=== PATIENT | male | born 1945 | race Caucasian/White ===

== ENCOUNTER 2017-09-04 11:45 | Outpatient (RCR) | payer MEDICARE, BC, SELFPAY ==
[2017-09-04 12:33] LABS: International Normalized Ratio 2.6; Prothrombin Time (Protime)PT. 27.1 SECONDS (11.7-14.9)
== END 2017-09-04 12:30 | disposition home or self-care (01) ==
LOC: LAB 11:45
PROVIDERS: Family Provider Family Medicine; PCP Family Medicine; Visit Provider Internal Medicine Cardiovascular Disease
DX: Z79.01 Long term (current) use of anticoagulants (principal)
CPT/HCPCS: 85610

== ENCOUNTER 2017-10-25 09:48 | Inpatient (IN) | payer MEDICARE, BC, SELFPAY ==
--- NOTE | 2017-10-22 07:54 | EKG12_ITS ---
Test Reason : PREOP Blood Pressure : / mmHG Vent. Rate : 068 BPM Atrial Rate : 394 BPM P-R Int : 000 ms QRS Dur : 090 ms QT Int : 432 ms P-R-T Axes : 000 067 028 degrees QTc Int : 459 ms Atrial fibrillation Abnormal ECG Confirmed by EDDA WHITT MD ([id number]), editor managing newspaper VITO VALDES ([id number]) on 10/24/2017 2:35:17 PM Referred By: Von Gold Confirmed By:EDDA WHITT MD
[2017-10-22 08:36] LABS: Hematocrit 30.6 % (40-54); Hemoglobin 8.2 g/dl (13.0-16.5); Mean Corp Hgb Conc 26.8 g/gl (32-36); Mean Corpuscular Volume 59.6 fL (80-94); Mean Platelet Vol. 9.3 fl (6.2-12.0); Platelet Count 456 K/mm3 (150-450); RBC Distribution Width CV 24.3 % (11.6-14.6); RBC Distribution Width SD 50.9 fl (35.1-43.9); Red Blood Count 5.13 M/mm3 (4.6-6.2); White Blood Count 8.7 K/mm3 (4.4-11.0)
[2017-10-22 08:37] LABS: Scan Indicated on CBC? Y/N YES- FLAGS NOTED
[2017-10-22 08:54] LABS: Anion Gap 7 (5-15); BUN 13 mg/dL (7-18); BUN/Creat Ratio 15.2 RATIO (10-20); Calcium,Total 8.4 mg/dL (8.5-10.1); Chloride 106 mmol/L (98-107); Creatinine, Serum 0.86 mg/dL (0.70-1.30); EST Glomerular Filtration Rate 93 mL/min (>60); Est Glom Filt Rate - Afr Amer 113 mL/min (>60); Glucose 102 mg/dL (74-106); Potassium 3.7 mmol/L (3.5-5.1); Sodium Level 140 mmol/L (136-145)
[2017-10-22 09:20] LABS: Differential Comment SCANNED
[2017-10-25] VITALS (16 sets, daily range): BP systolic 102–122; BP diastolic 66–83; PULSE 58–103; RESP 16–18; TEMP 36.4–37.7; O2SAT 95–100; BMI 66.1
[2017-10-25 11:06] LABS: Hematocrit 28.9 % (40-54); Hemoglobin 7.5 g/dl (13.0-16.5); Mean Corpuscular Hgb 15.7 pg (27.0-32.0); Mean Corpuscular Volume 60.3 fL (80-94); Mean Platelet Vol. 8.6 fl (6.2-12.0); Platelet Count 335 K/mm3 (150-450); RBC Distribution Width CV 22.6 % (11.6-14.6); RBC Distribution Width SD 50.1 fl (35.1-43.9); Red Blood Count 4.79 M/mm3 (4.6-6.2); Scan Indicated on CBC? Y/N YES- FLAGS NOTED; White Blood Count 5.3 K/mm3 (4.4-11.0)
[2017-10-25 11:07] LABS: ALB/GLOB Ratio 0.8 RATIO (0.9-2.4); AST(SGOT) 9 U/L (15-37); Alanine Aminotransfer ALT/SGPT 9 U/L (16-61); Albumin, Serum 3.2 g/dL (3.2-5.0); Alkaline Phosphatase 51 U/L (45-117); Anion Gap 7 (5-15); BUN 10 mg/dL (7-18); BUN/Creat Ratio 12.7 RATIO (10-20); Calcium,Total 8.2 mg/dL (8.5-10.1); Chloride 102 mmol/L (98-107); Creatinine, Serum 0.79 mg/dL (0.70-1.30); EST Glomerular Filtration Rate 103 mL/min (>60); Est Glom Filt Rate - Afr Amer 125 mL/min (>60); Estimated Creatinine Clearance 72.16 ml/min; Globulin 3.9 g/dL (2.2-4.2); Glucose 96 mg/dL (74-106); Phosphorus 2.9 mg/dL (2.5-4.9); Potassium 3.4 mmol/L (3.5-5.1); Protein, Total 7.1 g/dL (6.4-8.2); Sodium Level 138 mmol/L (136-145)
--- NOTE | 2017-10-25 11:13 | RAD_ITS ---
STUDY: X-RAY - ABDOMEN/PELVIS REASON FOR EXAM: Male, 72 years old. Abdominal pain. Colonoscopy earlier in the day. TECHNIQUE: AP supine and upright views of the abdomen and pelvis. COMPARISON: None. FINDINGS: Hiatal hernia. There is an unremarkable bowel gas pattern. There is no demonstrated free abdominal air. The visualized liver, spleen and kidneys are grossly normal in size and morphology. Normal soft tissue structures. Normal visualized osseous structures. RAD/Abd Decub and/or Erect(Portabl IMPRESSION: No acute abnormality is seen. Hiatal hernia. Electronically Signed: Jerad Patterson MD at 14:33 EST Tel [phone], Service support ,
[2017-10-25 11:40] LABS: Differential Comment SCANNED
[2017-10-25] MEDS: 0.9% Normal Saline 1,000 ML 40 ML IV (11:43)
[2017-10-25] MEDS: metroNIDAZOLE 500 MG Tablet 1000 MG PO ×3 (13:11→21:05)
--- NOTE | 2017-10-25 16:56 | HP.PCM_ITS ---
History and Physical Date of Admission: 10/25/17 Yves Carbone 1945 REFERRING PHYSICIAN: Orlin Reed MD CHIEF COMPLAINT: Newly diagnosed hepatic flexure colon cancer HPI: The patient is a pleasant 72 year old WM who presents with newly diagnosed colon cancer at hepatic flexure. Patient presents with right sided abdominal pain, also. This is what prompted abdominal/pelvic CT scan which revealed thickening of colon at hepatic flexure. Patient underwent colonoscopy by Dr. Reed with findings of invasive colon cancer, lesion noted at hepatic flexure. Patient is referred for consideration of surgical treatment. Patient complains of right upper quadrant abdominal pain that radiates posterior to the right flank. Described as intermittent, severe ache, with sometimes sharp pains. He was noted to have perinephric stranding of the surrounding soft tissues from the CT scan of unknown significance. Has history of kidney stones, but no stones seen. Denies nausea/emesis. Denies weight loss. No family history of colon cancer The patient was initially seen by my partner-Jannet Aguayo as I was out of town and it was felt that surgical intervention was somewhat urgent. The patient was scheduled for laparoscopic right hemicolectomy. Dr. Aguayo performed repeat endoscopy this morning, marking, and clipping the site of abnormality to assist in my surgical intervention tomorrow. I had spoken with Dr. Romero-the patient's chair pad maker and felt was appropriate for surgical intervention. Preoperative laboratory testing demonstrated. The patient at hemoglobin of 8.2. I spoke with Dr. Shimon Church-anesthesia, who wanted the patient to be transfused 2 units of blood prior to surgical intervention. PAST MEDICAL HISTORY Diagnosis Date ? Acid reflux ? Atrial fibrillation (HCC) ? History of kidney stones ? Hypercholesteremia ? Hypertension PAST SURGICAL HISTORY Procedure Laterality Date ? COLONOSCOPY 10/05/2017 ? TOTAL KNEE REPLACEMENT Left 2012 Current Outpatient Prescriptions: metoprolol tartrate, short acting, (LOPRESSOR) 100 mg tablet Take 100 mg by mouth twice daily. VIT A/VIT C/VIT E/ZINC/COPPER (OCUVITE PRESERVISION ORAL) Take by mouth once daily. omeprazole (PRILOSEC) 20 mg capsule Take 20 mg by mouth as needed (GERD). Psyllium Seed-Sucrose (METAMUCIL, SUGAR,) powd Take by mouth once daily. warfarin (COUMADIN) 4 mg tablet NIFEdipine ER (PROCARDIA XL) 60 mg 24 hr tablet simvastatin (ZOCOR) 20 mg tablet Quinapril HCl 40 mg tablet oxyCODONE-acetaminophen (PERCOCET) 5-325 mg tablet lactulose (GENERLAC) 10 gram/15 mL solution Take 30 mL by mouth twice daily. traMADol (ULTRAM) 50 mg tablet Take 1 tablet by mouth every 4 hours as needed for up to 5 days. neomycin 500 mg tablet Take 2 tablets by mouth four times daily. metroNIDAZOLE (FLAGYL) 500 mg tablet Take 1 tablet by mouth three times daily for 14 days. FOR 14 DAYS. ALLERGIES: Review of patient's allergies indicates no known allergies. PERSONAL HISTORY: Social History Marital status: Spouse name: Years of education: Number of children: Social History Main Topics Smoking status: Former Smoker Packs/day: 0.00 Years: 0.00 Smokeless status: Never Used Comment: quit 11 years ago Alcohol use: Yes Comment: occasional FAMILY HISTORY Problem Relation Age of Onset ? bone cancer [OTHER] Mother ? Stroke Father REVIEW OF SYSTEMS: General: overall feels well, complains of fatigue, denies weight loss, denies weight gain, denies feeling hot, and denies feelings of cold. Eyes: The patient denies glaucoma, denies eye injury/surgery, wears glasses or contacts. Ear/Nose/Throat: The patient denies allergies, denies hayfever, denies ear infections, and denies bloody noses. Cardiovascular: The patient denies chest pain, denies heart disease, NOTES high blood pressure,denies cardiac stent, denies prior heart attack, NOTES irregular heart beat chair pad maker is Dr. Romero, NOTES high cholesterol, denies poor circulation, denies heart failure, other cardiac issues, denies claudication, denies cold feet, denies peripheral arterial stent. Respiratory: The patient denies tuberculosis, denies pneumonia, denies frequent cough, denies pulmonary embolism, NOTES shortness of breath, and denies coughing up blood. Gastrointestinal: The patient denies difficulty swallowing, NOTES acid reflux, denies ulcers, denies vomiting, denies jaundice/hepatitis, denies gallbladder problems, denies black or tarry stools, denies hemorrhoids, denies bleeding from rectum, denies diverticulitis, denies constipation, denies diarrhea, denies loss of stool control, and denies hernias. Kidney/Bladder: The patient NOTES kidney stones, denies urine infections, and denies bloody urine. Skin: The patient denies a history of skin cancer, denies bleeding/ changing moles, and denies a history of skin rash. Neurologic: The patient denies a history of epilepsy/convulsions, denies headaches, denies head/spinal injuries, and denies stroke/TIA. Psychiatric: The patient denies psychiatric medications, denies depression , and denies voices, denies substance abuse. Endocrine: The patient denies thyroid disorders, denies diabetes, and denies hormonal problems. Hematologic: The patient denies a history of bruising, denies bleeding, and denies anemia, denies blood clots. Infections: The patient denies a history of measles and mumps, denies rheumatic fever, and denies sexually transmitted diseases. Musculoskeletal: The patient denies back pain/injury, denies back problems , denies sciatica, NOTES knee/foot trouble, denies arthritis, or denies gout. PHYSICAL EXAMINATION: General: The patient is 72 year old male, well nourished, well hydrated in no acute distress. The patient is oriented to time, place, and person. VITALS: Blood pressure 118/80, pulse 72, height 180.3 cm (5' 11), weight 100.7 kg (222 lb). Body mass index is 30.96 kg/(m^2). Head ? Normocephalic. EOM intact with sclera clear and no icterus noted. Mouth with mucus membranes moist. Neck - supple with no jugular venous distention noted. Trachea is midline. No carotid bruits noted. No thyroid enlargement or thyroid nodules detected. No masses noted. Lungs ? clear to auscultation. Normal breath sounds in all lung jackson. No rales /rhonchi/wheezing noted. No labored breathing noted, such as retractions. Heart ? normal S1 and S2 auscultated. No rubs/clicks/murmurs noted. Irregular rhythm Abdomen ? soft and benign and slightly protuberant. Normal bowel sounds. No abdominal bruits noted. Difficult to determine if any masses or organomegaly due to body habitus. Extremities ? no calf tenderness noted. No pitting edema noted. . Skin ? normal skin integrity. Lymph ? no cervical adenopathy detected, no supraclavicular adenopathy detected , no axillary adenopathy detected Neurological ? gait normal, no focal deficits noted Psych ? calm and appropriate IMPRESSION: hepatic flexure colon cancer PLAN: I have discussed the above with the patient and his and daughter who are present with him this morning following endoscopy, the plan for laparoscopic right hemicolectomy. The planned surgical procedure was discussed extensively with the patient. The risks, benefits and anticipated outcomes of the procedure, the risks and benefits of the alternatives to the procedure, and the roles and tasks of the personnel to be involved, were discussed with the patient. My staff has also explained the procedure in understandable terms and the patient was given the option to take printed material concerning the planned procedure. The patient had the opportunity to ask questions concerning the planned procedure. The patient freely consents to the planned procedure. He'll be admitted today for transfusion of 2 units packed red cells. Last coumadin/warfarin dose will be on Oct 21, 2017 . Diagnoses: (C18.3) Malignant neoplasm of hepatic flexure (HCC) (primary encounter diagnosis) (R10.11) Right upper quadrant abdominal pain Best contact cell phone number [phone] Von Gold MD
[2017-10-25] MEDS: Atorvastatin Calcium 10 MG Tablet PO (21:06)
[2017-10-25] MEDS: Metoprolol Tartrate 100 MG Tablet PO (21:08)
[2017-10-26] VITALS (12 sets, daily range): BP systolic 117–144; BP diastolic 77–91; PULSE 61–87; RESP 16–18; TEMP 36.1–37; O2SAT 93–99; BMI 66.1
--- NOTE | 2017-10-26 | IMM_PTH ---
PATIENT: KRISH NAIR LOC: MS3 U#:[id number] AGE/SX: 72/M ROOM: TX312 RE10/25/[address]: Dr. Von Gold MD : 1945 BED: 1 DIS: 10/30/2017 SPEC #: [id number] RECD: 11/01/17 09:53 STATUS: GLYNN REQ #: [id number] MARITZA: 10/26/17 00:[address]: Von Gold DEPT: IMMUNOHISTOCHEMISTRY RECD BY: Munira Lou ENTERED: 11/01/17 09:56 SP TYPE: IMMUNO OTHR DR: Dr. Madeleine Subramanian MD Tissues: Right colon Procedures: MLH-1 (add) MSH6 (add) Anti-PMS2 (add) REYES-2 (add) HER2 ZENOBIA (add) KI-67 (add) P53 (add) MSH2 (initial) CDX2 (add) PHYSICIAN & INSTITUTION [place] [id number] SPECIMEN INFORMATION: Tissue Source: Right colon, extended hemicolectomy Clinical Info: Hepatic flexure colon cancer Specimen Number: [id number] #6 CPT code: 41059, 71243 x8 METHODOLOGY: Deparaffinized sections of prefer/formalin-fixed tissue or PAP/DQ stained slides are incubated with monoclonal/polyclonal antibodies/oligonucleotide probes. Localization is made via biotin free immunoperoxidase method. Appropriate controls are performed and reacted as expected. Results on target cell population are indicated in the following table: RESULTS: ANTIBODY / CLONE RESULT Block #6 COLON CANCER PROFILE (Prognostic Markers) Ki-67 (30-9) positive, moderate P53 (DO-7) positive, >90% MSH2 (25D12) positive MSH6 (44) positive MLH-1 (M1) positive PMS2 (CPM9929) positive REYES-2 (SP21) positive Her-2neu (CB11) negative CDX2 ([id number]) positive These tests were developed and their performance characteristics determined by [facility]. They may not have been cleared or approved by the U.S. Food and Drug Administration. The FDA has determined that such clearance or approval is not necessary. INTERPRETATION: Right colon, extended hemicolectomy: Invasive adenocarcinoma. Result of Microsatellite Instability Study: Negative (no loss of mismatch protein; no microsatellite instability detected). AM:jeannette 11/02/17
[2017-10-26 05:49] LABS: International Normalized Ratio 1.2; Prothrombin Time (Protime)PT. 14.7 SECONDS (11.7-14.9)
[2017-10-26 05:50] LABS: Partial Thromboplast Time 34.9 Seconds (24.1-36.2)
[2017-10-26 06:08] LABS: ALB/GLOB Ratio 0.8 RATIO (0.9-2.4); AST(SGOT) 11 U/L (15-37); Alanine Aminotransfer ALT/SGPT 11 U/L (16-61); Albumin, Serum 3.1 g/dL (3.2-5.0); Alkaline Phosphatase 51 U/L (45-117); Anion Gap 8 (5-15); BUN 10 mg/dL (7-18); BUN/Creat Ratio 13.4 RATIO (10-20); Calcium,Total 8.4 mg/dL (8.5-10.1); Chloride 106 mmol/L (98-107); Creatinine, Serum 0.75 mg/dL (0.70-1.30); EST Glomerular Filtration Rate 110 mL/min (>60); Est Glom Filt Rate - Afr Amer 133 mL/min (>60); Estimated Creatinine Clearance 72.16 ml/min; Globulin 3.8 g/dL (2.2-4.2); Glucose 94 mg/dL (74-106); Magnesium 1.9 mg/dL (1.6-2.6); Phosphorus 2.7 mg/dL (2.5-4.9); Potassium 3.1 mmol/L (3.5-5.1); Protein, Total 6.9 g/dL (6.4-8.2); Sodium Level 139 mmol/L (136-145)
[2017-10-26 06:27] LABS: Hemoglobin 9.6 g/dl (13.0-16.5); Mean Corp Hgb Conc 29.1 g/gl (32-36); Mean Corpuscular Hgb 18.3 pg (27.0-32.0); Mean Platelet Vol. 9.4 fl (6.2-12.0); Platelet Count 355 K/mm3 (150-450); RBC Distribution Width CV 27.9 % (11.6-14.6); Red Blood Count 5.24 M/mm3 (4.6-6.2); White Blood Count 6.4 K/mm3 (4.4-11.0)
[2017-10-26 06:32] LABS: Scan Indicated on CBC? Y/N YES- FLAGS NOTED
[2017-10-26 06:54] LABS: Differential Comment SCAN
[2017-10-26] MEDS: Metoprolol Tartrate 100 MG Tablet PO ×2 (10:30→21:46)
[2017-10-26] MEDS: Lisinopril 40 MG Tablet PO (10:31)
[2017-10-26] MEDS: Pantoprazole Sodium 20 MG Tablet PO (10:31)
[2017-10-26] MEDS: NIFEdipine 60 MG Tablet PO (10:32)
--- NOTE | 2017-10-26 13:00 | COL._PTH ---
PATIENT: KRISH NAIR LOC: MS3 U#:[id number] AGE/SX: 72/M ROOM: MN312 RE10/25/[address]: Dr. Von Gold MD : 1945 BED: 1 DIS: 10/30/2017 SPEC #: [id number] RECD: 10/29/17 08:29 STATUS: GLYNN LUONG #: [id number] MARITZA: 10/26/17 13:[address]: Von Gold DEPT: SURGICAL PATHOLOGY RECD BY: Von Delacruz ENTERED: 10/29/17 09:25 SP TYPE: COLON OTHR DR: Dr. aMdeleine Subramanian MD Tissues: Colon, NOS Procedures: Surgery Specimen Level HEADER OPERATION: Laparoscopic extended hemicolectomy PRE-OP DIAGNOSIS: Hepatic flexure colon cancer TISSUE SUBMITTED: Extended right colon MICROSCOPIC DIAGNOSIS Right colon, extended hemicolectomy: Invasive adenocarcinoma. See cancer checklist below. AM:jeannette 10/31/17 COMMENT COLON CANCER SUMMARY: Specimen ? right colon Procedure ? right hemicolectomy Tumor site ? right colon Tumor size ? 4 x 3.5 x 1 cm Macroscopic tumor perforation ? not identified Histologic type - adenocarcinoma Histologic grade ? low-grade (moderately differentiated) Microscopic tumor extension ? tumor invades through muscularis propria into subserosal fat. Margins: Proximal margin ? uninvolved by invasive carcinoma Distal margin - uninvolved by invasive carcinoma Circumferential - uninvolved by invasive carcinoma Distance from closest mucosal margin (distal margin) ? 6 cm Lymph-Vascular invasion ? not identified Perineural invasion - not identified Tumor deposits - not identified Treatment effect - unknown Lymph nodes: Number of lymph nodes examined - 13 Number of lymph nodes involved - 0 Additional pathologic findings ? appendix with early acute appendicitis. Small bowel with benign lymphoid hyperplasia. Ancillary studies: See microsatellite instability study by IHC ([id number]) for complete details. Negative (no loss of mismatch protein; no microsatellite instability detected). Microsatellite instability - Immunohistochemistry Studies for Mismatch Repair Proteins: MLH1 - Intact nuclear positivity, tumor cells MSH2 - Intact nuclear positivity, tumor cells MSH6 - Intact nuclear positivity, tumor cells PMS2 - Intact nuclear positivity, tumor cells Mutational Analysis - BRAF ? not performed KRAS - not performed PATHOLOGIC STAGE: pT3 N0 Mx Case has been reviewed in consultation with Dr. Burrows who concurs with the above diagnosis. IDC:SJ The above summary is in compliance with [employer] [place] [employer] (CAP) Cancer Protocols Checklist and [place] [employer] Committee on Cancer (AJCC), Staging Manual, 8th Ed. MICROSCOPIC DESCRIPTION Slides are reviewed. GROSS DESCRIPTION Received in fixative is one container labeled with the patient's name and designated right colon, extended. The specimen consists of a right hemicolectomy specimen consisting of cecum with ascending colon, portion of transverse colon, small intestine and appendix with attached pericolonic adipose tissue and omentum. The cecum with ascending colon measures 23 cm in length, segment of small intestine measures 3 cm in length and the appendix measures 9 cm in length and 0.4 cm in diameter. The attached omentum measures 16 x 9 x 1.5 cm. Both resection margins are stapled. Also present in the container are two separate pieces of colonic tissue consistent with donut tissue measuring 1 x 1 x 0.5 cm and 4 x 2 x 1 cm. Sections of the appendix reveal pin-point lumen. 6 cm away from the distal resection margin there is an ulcerated round tumor mass measuring 3.5 x 4 x 1 cm. Adjacent to the tumor mass a metallic clip is present. The tumor mass appears to involve full thickness of the bowel wall. The serosal surface adjacent to the tumor mass is inked black. No additional mass lesion is identified. Sections of omentum reveal unremarkable cut surfaces without any mass lesion. Sections of the pericolonic adipose tissue reveal multiple lymph nodes. The largest lymph node measures 0.6 cm. Artificial Marble Worker sections are submitted as follows: 1 ? donut, 2 ? appendix, 3 ? proximal and distal resection margin, 4-7 ? tumor, 8 ? ileocecal valve and adjacent portion of small and large intestine, 9 ? omentum, 10-14 ? multiple lymph nodes in each cassette. / ELENITA:jeannette 10/30/17 TC:0 CPT: 76348
--- NOTE | 2017-10-26 13:00 | CASEMGMT ---
RN CM attempted to do Face 2 Face, patient not in room and is at surgery. RN CM will follow-up when patient back on unit.
[2017-10-26] MEDS: Bupivacaine 0.25% 30 ML Vial (17:52)
--- NOTE | 2017-10-26 17:58 | PCM.OPRPT ---
Report of Operation Date of Procedure: 10/26/17 Pre-Operative Diagnosis: proximal transverse colon cancer Post-Operative Diagnosis: proximal transverse colon cancer Surgery/Procedure Performed:: laparoscopic extended right hemicolectomy Description of Surgical Findings:: as above bushing and broach operator: Zulema Goddard Type of Anesthesia:: General Anesthesiologist: Shimon Church - ASA3 Specimen's removed: exrtended right colon Estimated Blood Loss (mL): 150 Fluids Replaced: 1999 Description of Procedure: The patient was brought to the operating suite. Sign in was performed verifying patient, site, procedure, position, and DVT prophylaxis with SCDs. Patient 2 g of cefotetan. Preoperative bowel prep of mechanical and antibiotic comprised of GoLYTELY 2 days before the procedure. The patient then underwent repeat colonoscopy by Dr. Aguayo to ink and clip the tumor location. a KUB was obtained which demonstrated the clip to be just to the right of the midline proving the abnormality to be in the junction between the proximal and mid transverse colon. The patient's preoperative laboratory studies demonstrated significant anemia with a hemoglobin of 8 area and he is admitted to the hospital. Therefore, the day before procedure for transfusion of 2 units of packed red cells, maintained on clear liquids and in the evening. Given neomycin and Flagyl 1 g 3 doses evening before was given Following induction of general anesthetic. The patients abdomen was prepped and draped in the usual fashion. Timeout was performed verifying patient, site, position. Local anesthetic was injected below the umbilicus. Incision made and dissection carried down to the umbilical root fascia. 2 stay sutures were placed. Incision made in the fascia, the peritoneum entered under direct visualization. A 10 mm [place] trocar was inserted and secured with the stay sutures. Pneumoperitoneum to 15 mmHg was insufflated. Visual inspection revealed normal appearing liver and normal. Visualized intra-abdominal structures. The Lisa ink marked tumor site was noted at the junction of the proximal and mid transverse colon as expected. 2 5mm ports were placed in the standard midline position, and a third 5 port placed in the left lateral upper quadrant to assist in transverse colon. Mobilization. Mobilization the avascular plane was undertaken from the base of the cecum up and around the hepatic flexure. Division of the lesser sac from left upper quadrant through the midline to the hepatic flexure was undertaken. When this was fully mobilized, the duodenum was visualized from the right flank region. Next, the terminal ileum area was brought up and a cleavage point noted in the mesentery. Harmonic Scalpel was used to create a window in the terminal ileal mesentery and division was taken down to the ileocolic root. Next the transverse colon was grasped and the vasculature coming from the middle colic vessel was identified. A window was made in the bare area proximal to the middle colic vessels just overlying the duodenal sweep. This was also fully divided. Dissection was then carried out at the ileal colic vessel root. The artery and vein were identified and doubly clipped proximally and doubly clipped distally with Hem-o-lee clips. With full dissection of the mesentery and full mobilization the colon, the umbilical incision was extended and a wound protector placed. The terminal ileum and cecum ascending colon part of the transverse colon were delivered through the wound protector. Complete division of the mesentery to the bowel was undertaken at both sites. The bowel was transected with an intestinal load echelon stapler. On this a functional stapled end-to-end anastomosis was performed between the ileum and transverse colon with an echelon stapler. The staple line was checked for hemostasis and following this the anastomosis closed with a TA stapler creating a wide triangle opening that was easily palpable. A 3-0 silk suture was used to take tension off the apex of the staple line. At this point, the specimen was opened on the back table. There was noted to be tumor in the expected location. Gown and gloves were changed. Pneumoperitoneum was re-established. There was good anatomic positioning of the small bowel and good hemostasis along the incisions. The 5mm ports were removed under direct visualization with no signs of bleeding. Pneumoperitoneum was released. The umbilical fascial defect was closed with a running 0 PDS suture. Subcutaneous fat reapproximated with interrupted 3-0 Vicryl sutures. Skin was closed with interrupted and running 4-0 Monocryl subcuticular sutures. Steri-Strips and bandages were applied. The patient was brought to recovery room in stable condition. - Admit VTE Documentation VTE Present on Admission: No VTE Mechan Device Prophylaxis: SCD's VTE Pharm Prophylaxis ordered?: No
--- NOTE | 2017-10-26 18:05 | OP.PCM_ITS ---
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 Sign in was performed verifying patient, site, procedure, position, and DVT prophylaxis with SCDs. Patient 2 g of cefotetan. Preoperative bowel prep of mechanical and antibiotic comprised of GoLYTELY 2 days before the procedure. The patient then underwent repeat colonoscopy by Dr. Aguayo to ink and clip the tumor location. a KUB was obtained which demonstrated the clip to be just to the right of the midline proving the abnormality to be in the junction between the proximal and mid transverse colon. The patient's preoperative laboratory studies demonstrated significant anemia with a hemoglobin of 8 area and he is admitted to the hospital. Therefore, the day before procedure for transfusion of 2 units of packed red cells, maintained on clear liquids and in the evening. Given neomycin and Flagyl 1 g 3 doses evening before was given Following induction of general anesthetic. The patient?s abdomen was prepped and draped in the usual fashion. Timeout was performed verifying patient, site , position. Local anesthetic was injected below the umbilicus. Incision made and dissection carried down to the umbilical root fascia. 2 stay sutures were placed. Incision made in the fascia, the peritoneum entered under direct visualization. A 10 mm [place] trocar was inserted and secured with the stay sutures. Pneumoperitoneum to 15 mmHg was insufflated. Visual inspection revealed normal appearing liver and normal. Visualized intra-abdominal structures. The Lisa ink marked tumor site was noted at the junction of the proximal and mid transverse colon as expected. 2 5mm ports were placed in the standard midline position, and a third 5 port placed in the left lateral upper quadrant to assist in transverse colon. Mobilization. Mobilization the avascular plane was undertaken from the base of the cecum up and around the hepatic flexure. Division of the lesser sac from left upper quadrant through the midline to the hepatic flexure was undertaken. When this was fully mobilized, the duodenum was visualized from the right flank region. Next, the terminal ileum area was brought up and a cleavage point noted in the mesentery. Harmonic Scalpel was used to create a window in the terminal ileal mesentery and division was taken down to the ileocolic root. Next the transverse colon was grasped and the vasculature coming from the middle colic vessel was identified. A window was made in the bare area proximal to the middle colic vessels just overlying the duodenal sweep. This was also fully divided. Dissection was then carried out at the ileal colic vessel root. The artery and vein were identified and doubly clipped proximally and doubly clipped distally with Hem-o-lee clips. With full dissection of the mesentery and full mobilization the colon, the umbilical incision was extended and a wound protector placed. The terminal ileum and cecum ascending colon part of the transverse colon were delivered through the wound protector. Complete division of the mesentery to the bowel was undertaken at both sites. The bowel was transected with an intestinal load echelon stapler. On this a functional stapled end-to-end anastomosis was performed between the ileum and transverse colon with an echelon stapler. The staple line was checked for hemostasis and following this the anastomosis closed with a TA stapler creating a wide triangle opening that was easily palpable. A 3-0 silk suture was used to take tension off the apex of the staple line. At this point, the specimen was opened on the back table. There was noted to be tumor in the expected location. Gown and gloves were changed. Pneumoperitoneum was re-established. There was good anatomic positioning of the small bowel and good hemostasis along the incisions. The 5mm ports were removed under direct visualization with no signs of bleeding. Pneumoperitoneum was released. The umbilical fascial defect was closed with a running 0 PDS suture. Subcutaneous fat reapproximated with interrupted 3-0 Vicryl sutures. Skin was closed with interrupted and running 4- 0 Monocryl subcuticular sutures. Steri-Strips and bandages were applied. The patient was brought to recovery room in stable condition. - Admit VTE Documentation VTE Present on Admission: No VTE Mechan Device Prophylaxis: SCD's VTE Pharm Prophylaxis ordered?: No
[2017-10-26] MEDS: Lactated Ringers 1,000 ML 100 ML IV (20:34)
[2017-10-26] MEDS: 0.9% NaCl Peripheral Flush Adult/Peds IV (21:46)
[2017-10-26] MEDS: Atorvastatin Calcium 10 MG Tablet PO (21:46)
[2017-10-26] MEDS: oxyCODONE 5 MG Tablet PO (23:59)
[2017-10-27] VITALS (8 sets, daily range): BP systolic 127–143; BP diastolic 74–81; PULSE 71–98; RESP 16–18; TEMP 36.6–37.1; O2SAT 96–98
[2017-10-27] MEDS: Lactated Ringers 1,000 ML 100 ML IV ×3 (00:09→21:00)
--- NOTE | 2017-10-27 00:45 | NURSING ---
Straight cath @ this time for return of 600ml.
[2017-10-27] MEDS: oxyCODONE 5 MG Tablet PO ×5 (05:34→22:21)
[2017-10-27 07:12] LABS: Absolute Lymphocyte Count 1.21 X10^3/ul (0.83-4.51); Absolute Neutrophil Count 6.3 X10^3/uL (2.0-7.7); Basophil# 0.05 X10^3/uL; Basophil% 0.6 % (0-1); Eosinophil# 0.05 X10^3/uL; Eosinophils% 0.6 % (0-5); Hematocrit 32.4 % (40-54); Hemoglobin 9.4 g/dl (13.0-16.5); Lymphocyte # 1.21 X10^3/ul (4.0); Lymphocyte % 13.7 % (19-41); Mean Corpuscular Hgb 18.4 pg (27.0-32.0); Mean Corpuscular Volume 63.4 fL (80-94); Mean Platelet Vol. 9.5 fl (6.2-12.0); Monocyte# 1.24 X10^3/uL; Neutrophil # 6.31 X10^3/uL (2.7-7.7); Neutrophil % 71.1 % (47-70); Platelet Count 353 K/mm3 (150-450); RBC Distribution Width CV 28.1 % (11.6-14.6); RBC Distribution Width SD 62.6 fl (35.1-43.9); Red Blood Count 5.11 M/mm3 (4.6-6.2); White Blood Count 8.9 K/mm3 (4.4-11.0)
[2017-10-27 07:13] LABS: Differential Indicated SCAN CRITERIA MET; POSITIVE COUNT NO; POSITIVE DIFFERENTIAL NO; POSITIVE MORPHOLOGY YES
[2017-10-27 07:31] LABS: ALB/GLOB Ratio 0.7 RATIO (0.9-2.4); AST(SGOT) 8 U/L (15-37); Alanine Aminotransfer ALT/SGPT 8 U/L (16-61); Albumin, Serum 2.8 g/dL (3.2-5.0); Alkaline Phosphatase 50 U/L (45-117); Anion Gap 8 (5-15); BUN 6 mg/dL (7-18); BUN/Creat Ratio 7.6 RATIO (10-20); Calcium,Total 8.3 mg/dL (8.5-10.1); Chloride 102 mmol/L (98-107); Creatinine, Serum 0.79 mg/dL (0.70-1.30); EST Glomerular Filtration Rate 103 mL/min (>60); Est Glom Filt Rate - Afr Amer 125 mL/min (>60); Estimated Creatinine Clearance 69.96 ml/min; Globulin 3.8 g/dL (2.2-4.2); Glucose 91 mg/dL (74-106); Magnesium 1.9 mg/dL (1.6-2.6); Potassium 3.3 mmol/L (3.5-5.1); Protein, Total 6.6 g/dL (6.4-8.2); Sodium Level 136 mmol/L (136-145)
[2017-10-27 07:51] LABS: Anisocytosis 2+; Hypersegmented Neutrophils RARE; Hypochromasia 2+
--- NOTE | 2017-10-27 08:07 | PN.SURG_ITS ---
Subjective: no complaints.-Pain controlled with pain medication, unable to void last night straight catheter performed yielding 600 cc of urine - Physical Exam General: Alert, Oriented x3 Lungs: Clear to auscultation, Normal air movement Cardiovascular: Regular rate, Regular Rhythm - with a few premature beats Abdomen: Bowel Sounds Present, Soft, Non Tender, Hypoactive Bowel Sounds, - - dressings in place-incisions appear clean, dry and intact Vital Signs Temp Pulse Resp BP Pulse Ox 98.2 F 78 16 143/81 H 98 10/27/17 05:30 10/27/17 05:30 10/27/17 05:30 10/27/17 05:30 10/27/17 05:30 Oxygen Flow Rate 2 Oxygen Delivery Method Room Air Weight: 98.883 kg Body Mass Index (BMI) 30.0 Intake and Output for Last 24 Hours 10/25/17 10/26/17 10/27/17 23:59 23:59 23:59 Intake Total 1700 / 1700 3403 / 3403 1524 / 1524 Output Total 500 / 500 850 / 850 Balance 1700 / 1700 2903 / 2903 674 / 674 Laboratory Tests Past 24 Hrs 10/27/17 10/27/17 06:03 06:03 WBC 8.9 RBC 5.11 Hgb 9.4 L Hct 32.4 L MCV 63.4 L MCH 18.4 L MCHC 29.0 L RDW 28.1 H RDW Differential 62.6 H Plt Count 353 MPV 9.5 Immature Gran % (Auto) 0.000 Neut % (Auto) 71.1 H Lymph % (Auto) 13.7 L [place] % (Auto) 14.0 H Eos % (Auto) 0.6 Baso % (Auto) 0.6 Absolute Neuts (auto) 6.3 Absolute Lymphs (auto) 1.21 Total Counted Not Reportable Diff Path Review May foll Hypersegmented Neuts RARE H Hypochromasia 2+ Anisocytosis 2+ Sodium 136 Potassium 3.3 L Chloride 102 Carbon Dioxide 26.0 Anion Gap 8 BUN 6 L Creatinine 0.79 Estim Creat Clear Calc 69.96 Est GFR (MDRD) Af Amer 125 Est GFR (MDRD) Non-Af 103 BUN/Creatinine Ratio 7.6 L Glucose 91 Calcium 8.3 L Phosphorus 3.0 Magnesium 1.9 Total Bilirubin 1.00 AST 8 L ALT 8 L Alkaline Phosphatase 50 Total Protein 6.6 Albumin 2.8 L Globulin 3.8 Albumin/Globulin Ratio 0.7 L Assessment/Plan POD # 1 - 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 Flomax started. potassium low morning of surgery. Patient was given potassium riders. He received 2000 cc of IV fluid intraoperatively and had a estimated 150 cc blood loss. Will check CBC and hemoglobin today. Somewhat hypoactive bowel sounds noted. We will continue sips of sugar-based liquids, encourage patient to chew gum. Will advance diet when improved bowel function. SCDs for DVT prophylaxis, incentive spirometry for pulmonary toilet. We'll encourage ambulation today.
[2017-10-27] MEDS: Metoprolol Tartrate 100 MG Tablet PO ×2 (10:03→21:00)
[2017-10-27] MEDS: Pantoprazole Sodium 20 MG Tablet PO (10:04)
[2017-10-27] MEDS: Lisinopril 40 MG Tablet PO (10:04)
[2017-10-27] MEDS: NIFEdipine 60 MG Tablet PO (10:04)
[2017-10-27] MEDS: Tamsulosin HCl 0.4 MG Capsule PO (16:37)
--- NOTE | 2017-10-27 16:38 | CASEMGMT ---
Face to Face with patient for initial transition planning/care coordination assessment. MIRELLA CHACON introduced self and role at [facility], pt voices understanding and consents to assessment at this time. Pt is sitting up in bed in no distress at this time. Pt is A/O x4 at this time and answers all questions appropriately at this time. Care providers, pharmacy, and demographics verified. See attached link. Pt voices no further concerns/needs at this time. Advised pt to ask for CM if any further questions/concerns/needs arise, voices understanding. PLAN: [place] MIRELLA CHACON
[2017-10-27] MEDS: Atorvastatin Calcium 10 MG Tablet PO (21:00)
[2017-10-28] MEDS: oxyCODONE 5 MG Tablet PO ×5 (02:23→22:40)
[2017-10-28 04:56] VITALS: BP 137/70; PULSE 72; RESP 18; TEMP 36.8; O2SAT 97
[2017-10-28] MEDS: Lactated Ringers 1,000 ML 100 ML IV (05:40)
[2017-10-28 07:21] VITALS: O2SAT 97
--- NOTE | 2017-10-28 09:28 | PCM.PN.SRG ---
Subjective: needed cowart catheter, no significant complaints of pain - Physical Exam General: Alert, Oriented x3 Lungs: Clear to auscultation, Normal air movement Cardiovascular: Regular rate, No murmurs Abdomen: Bowel Sounds Present, Soft, Non Tender Vital Signs Temp Pulse Resp BP Pulse Ox 98.2 F 72 18 137/70 H 97 10/28/17 04:56 10/28/17 04:56 10/28/17 04:56 10/28/17 04:56 10/28/17 07:21 Oxygen Flow Rate 2 Oxygen Delivery Method Room Air Weight: 101.6 kg Body Mass Index (BMI) 30.0 Intake and Output for Last 24 Hours 10/26/17 10/27/17 10/28/17 23:59 23:59 23:59 Intake Total 3403 / 3403 3580 / 3580 857 / 857 Output Total 500 / 500 2025 / 202 1900 / 1900 Balance 2903 / 2903 1555 / 1555 -1043 / -1043 Assessment/Plan POD # 2 - 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 Flomax started. potassium low morning of surgery. Patient was given potassium riders. He received 2000 cc of IV fluid intraoperatively and had a estimated 150 cc blood loss. Will check CBC and hemoglobin today. Somewhat hypoactive bowel sounds noted. We will continue sips of sugar-based liquids, encourage patient to chew gum. Will advance diet when improved bowel function. SCDs for DVT prophylaxis, incentive spirometry for pulmonary toilet. We'll encourage ambulation today.
--- NOTE | 2017-10-28 09:44 | NURSING ---
Clarified order for lab work with Dr. Gold. Next lab work due 10/29/17 am.
[2017-10-28 09:59] VITALS: BP 109/72; PULSE 86; RESP 16; TEMP 37.1; O2SAT 94
[2017-10-28 10:05] VITALS: PULSE 75
[2017-10-28] MEDS: Lisinopril 40 MG Tablet PO (10:05)
[2017-10-28] MEDS: NIFEdipine 60 MG Tablet PO (10:05)
[2017-10-28] MEDS: Metoprolol Tartrate 100 MG Tablet PO ×2 (10:05→21:20)
[2017-10-28] MEDS: Pantoprazole Sodium 20 MG Tablet PO (10:05)
[2017-10-28 16:19] VITALS: BP 103/76; PULSE 74; RESP 16; TEMP 37; O2SAT 92
[2017-10-28] MEDS: Tamsulosin HCl 0.4 MG Capsule PO (16:21)
[2017-10-28 21:20] VITALS: BP 105/64; PULSE 65; RESP 16; TEMP 36.9; O2SAT 94
[2017-10-28] MEDS: Atorvastatin Calcium 10 MG Tablet PO (21:20)
[2017-10-29] VITALS (7 sets, daily range): BP systolic 104–124; BP diastolic 71–85; PULSE 73–88; RESP 16–19; TEMP 36.6–37.4; O2SAT 93–96
[2017-10-29 06:34] LABS: Anion Gap 10 (5-15); BUN 4 mg/dL (7-18); BUN/Creat Ratio 4.4 RATIO (10-20); Calcium,Total 8.5 mg/dL (8.5-10.1); Chloride 98 mmol/L (98-107); EST Glomerular Filtration Rate 88 mL/min (>60); Est Glom Filt Rate - Afr Amer 107 mL/min (>60); Estimated Creatinine Clearance 77.73 ml/min; Glucose 123 mg/dL (74-106); Potassium 3.2 mmol/L (3.5-5.1); Sodium Level 137 mmol/L (136-145)
[2017-10-29 06:45] LABS: Absolute Neutrophil Count 7.9 X10^3/uL (2.0-7.7); Basophil# 0.03 X10^3/uL; Basophil% 0.2 % (0-1); Eosinophil# 0.23 X10^3/uL; Eosinophils% 1.9 % (0-5); Hematocrit 34.6 % (40-54); Hemoglobin 10.3 g/dl (13.0-16.5); Mean Corp Hgb Conc 29.8 g/gl (32-36); Mean Corpuscular Hgb 18.8 pg (27.0-32.0); Mean Corpuscular Volume 63.1 fL (80-94); Mean Platelet Vol. 8.9 fl (6.2-12.0); Monocyte% 12.5 % (0-10); Neutrophil # 7.85 X10^3/uL (2.7-7.7); Neutrophil % 65.3 % (47-70); Platelet Count 431 K/mm3 (150-450); RBC Distribution Width CV 29.4 % (11.6-14.6); RBC Distribution Width SD 66.2 fl (35.1-43.9); Red Blood Count 5.48 M/mm3 (4.6-6.2)
[2017-10-29 06:47] LABS: Differential Indicated SCAN CRITERIA MET; POSITIVE COUNT NO; POSITIVE DIFFERENTIAL NO; POSITIVE MORPHOLOGY YES
[2017-10-29 07:10] LABS: Anisocytosis 2+; Differential Comment SCANNED; Hypochromasia 3+; Microcytosis 3+; Pathologist Review May foll
[2017-10-29 07:11] LABS: Target Cells 1+
[2017-10-29] MEDS: Lisinopril 40 MG Tablet PO (09:48)
[2017-10-29] MEDS: Pantoprazole Sodium 20 MG Tablet PO (09:48)
[2017-10-29] MEDS: oxyCODONE 5 MG Tablet PO ×2 (09:48→20:13)
[2017-10-29] MEDS: NIFEdipine 60 MG Tablet PO (09:48)
[2017-10-29] MEDS: Metoprolol Tartrate 100 MG Tablet PO ×2 (09:49→20:14)
[2017-10-29 13:19] LABS: Pathologist Review Reviewed
[2017-10-29] MEDS: Tamsulosin HCl 0.4 MG Capsule PO (16:32)
--- NOTE | 2017-10-29 18:45 | PCM.PN.SRG ---
Subjective: no flatus, less abdominal cramping - Physical Exam General: Alert, Oriented x3 Lungs: Clear to auscultation, Normal air movement Cardiovascular: Regular rate, Regular Rhythm Abdomen: Bowel Sounds Present, Soft, Non Tender Vital Signs Temp Pulse Resp BP Pulse Ox 98.4 F 73 16 114/85 H 93 10/29/17 13:57 10/29/17 13:57 10/29/17 13:57 10/29/17 13:57 10/29/17 13:57 Oxygen Flow Rate (L/min) 2 Oxygen Delivery Method Room Air Weight: 99.5 kg Body Mass Index (BMI) 30.0 Intake and Output for Last 24 Hours 10/27/17 10/28/17 10/29/17 23:59 23:59 23:59 Intake Total 3580 / 3580 2928 / 2928 2555 / 2555 Output Total 2024 / 2024 2300 / 2300 1775 / 1775 Balance 1555 / 1555 628 / 628 780 / 780 Laboratory Tests Past 24 Hrs 10/27/17 10/29/17 10/29/17 06:03 05:35 05:55 WBC 12.0 H RBC 5.48 Hgb 10.3 L Hct 34.6 L MCV 63.1 L MCH 18.8 L MCHC 29.8 L RDW 29.4 H RDW Differential 66.2 H Plt Count 431 MPV 8.9 Immature Gran % (Auto) 0.100 Neut % (Auto) 65.3 Lymph % (Auto) 20.0 [place] % (Auto) 12.5 H Eos % (Auto) 1.9 Baso % (Auto) 0.2 Absolute Neuts (auto) 7.9 H Absolute Lymphs (auto) 2.40 Total Counted Not Reportable Differential Comment SCANNED Diff Path Review Reviewed May foll Hypochromasia 3+ Anisocytosis 2+ Microcytosis 3+ Target Cells 1+ Sodium 137 Potassium 3.2 L Chloride 98 Carbon Dioxide 29.0 Anion Gap 10 BUN 4 L Creatinine 0.90 Estim Creat Clear Calc 77.73 Est GFR (MDRD) Af Amer 107 Est GFR (MDRD) Non-Af 88 BUN/Creatinine Ratio 4.4 L Glucose 123 H Calcium 8.5 Assessment/Plan POD # 3 - 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 Flomax started. potassium low morning of surgery. Patient was given potassium riders. He received 2000 cc of IV fluid intraoperatively and had a estimated 150 cc blood loss. Will check CBC and hemoglobin today. Somewhat hypoactive bowel sounds noted. We will continue sips of sugar-based liquids, encourage patient to chew gum. Will advance diet when improved bowel function. SCDs for DVT prophylaxis, incentive spirometry for pulmonary toilet. We'll encourage ambulation today.
[2017-10-29] MEDS: Atorvastatin Calcium 10 MG Tablet PO (20:14)
[2017-10-30 04:32] VITALS: BP 109/74; PULSE 82; RESP 18; TEMP 36.7; O2SAT 98
--- NOTE | 2017-10-30 07:06 | PCM.DC.GS ---
Discharge Diet: Light diet - advance as tolerated - If you have questions about your diet instructions, please talk to your doctor. Discharge Activity: May Not Drive - for 1 week or while taking narcotic pain meds. May shower in (days): 1 Lifting Restrictions: 10 pounds Call your doctor if your incision/area has: Continuous Slow Oozing, Sudden Increased Bleeding, Increased Pain/ Swelling, Increased Redness, Foul Smelling Discharge Call your doctor if you observe: Fever of 101 or Higher Suture Line Care: Avoid Pulling/Pushing, Avoid Pinching/Bending Additional Dressing/Incision Instructions:: Change or remove dressing in 4 days. Leave steri-strips in place for 1 week. Allergies/Adverse Reactions: Allergies No Known Allergies Allergy (Verified 10/19/17 08:23) Medications to take at Discharge Metoprolol Tartrate [Lopressor (beta cony)] 100 mg PO BID 07/22/13 Nifedipine [Nifedipine ER] 60 mg PO DAILY 07/22/13 Quinapril HCl [Accupril] 40 mg PO DAILY 07/22/13 Simvastatin [Zocor] 20 mg PO QHS 07/22/13 Vit A/Vit C/Vit E/Zinc/Copper [Preservision Areds Softgel] 1 each PO BID 10/19/17 Warfarin [Coumadin] 4 mg PO DAILY 10/19/17 Oxycodone [Oxyir] 5 mg PO Q4H PRN PRN 7 Days #12 tab 10/30/17 Pantoprazole Sodium [Protonix] 20 mg PO DAILY tablet 10/30/17 Tamsulosin HCl [Flomax] 0.4 mg PO DAILY@1730 #30 cap 10/30/17 The following prescriptions were given: Oxycodone [Oxyir] 5 mg PO Q4H PRN PRN 7 Days #12 tab PRN Reason: Severe Pain (6-10/10) Tamsulosin HCl [Flomax] 0.4 mg PO DAILY@1730 #30 cap Primary Care Physician: Madeleine Subramanian MD [Primary Care Provider] - Please Follow Up With: Von Gold MD - [phone] When: Call to make an appointment to be seen in 2 days. - - for catheter
[2017-10-30 10:00] VITALS: BP 132/82; PULSE 89; RESP 18; TEMP 36.9; O2SAT 95
[2017-10-30 10:08] VITALS: BP 132/82; PULSE 89
[2017-10-30] MEDS: Lisinopril 40 MG Tablet PO (10:08)
[2017-10-30] MEDS: Metoprolol Tartrate 100 MG Tablet PO (10:08)
[2017-10-30] MEDS: Pantoprazole Sodium 20 MG Tablet PO (10:09)
[2017-10-30] MEDS: NIFEdipine 60 MG Tablet PO (10:09)
[2017-10-30 13:08] VITALS: BP 137/90; PULSE 70; RESP 18; TEMP 36.6; O2SAT 97
--- NOTE | 2017-10-30 17:58 | PCM.DC.SUM ---
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 Reed with the finding of a proximal transverse colon cancer. The patient underwent outpatient bowel prep and Lisa ink marking and clipping of his tumor and was admitted due to anemia for transfusion of 2 units of packed red cells on October 25 area. He underwent laparoscopic extended right hemicolectomy on October 26. Patient did well postoperatively with the exception of inability to void, requiring [place] catheter placement. He was able to pass flatus on postoperative day 3-4 and advanced to a diet and was discharged to home on postoperative day 4. he will follow up my office in 2 days for Marm[place]jo catheter removal. He was placed on Flomax in addition to oral pain medications Discharge Diet: Light diet - advance as tolerated - If you have questions about your diet instructions, please talk to your doctor. Discharge Activity: May Not Drive - for 1 week or while taking narcotic pain meds. May shower in (days): 1 Call your doctor if your incision/area has: Continuous Slow Oozing, Sudden Increased Bleeding, Increased Pain/ Swelling, Increased Redness, Foul Smelling Discharge Call your doctor if you observe: Fever of 101 or Higher Suture Line Care: Avoid Pulling/Pushing, Avoid Pinching/Bending Additional Dressing/Incision Instructions:: Change or remove dressing in 4 days. Leave steri-strips in place for 1 week. Home Medications: Medications to take at Discharge RX: Metoprolol Tartrate [Lopressor (beta ocny)] 100 mg PO BID 07/22/13 RX: Nifedipine [Nifedipine ER] 60 mg PO DAILY 07/22/13 RX: Quinapril HCl [Accupril] 40 mg PO DAILY 07/22/13 RX: Simvastatin [Zocor] 20 mg PO QHS 07/22/13 RX: Vit A/Vit C/Vit E/Zinc/Copper [Preservision Areds Softgel] 1 each PO BID 10/19/17 RX: Warfarin [Coumadin] 4 mg PO DAILY 10/19/17 RX: Oxycodone [Oxyir] 5 mg PO Q4H PRN PRN 7 Days #12 tab 10/30/17 RX: Pantoprazole Sodium [Protonix] 20 mg PO DAILY tablet 10/30/17 RX: Tamsulosin HCl [Flomax] 0.4 mg PO DAILY@1730 #30 cap 10/30/17 Following Prescrptions Were Given to Patient: RX: Oxycodone [Oxyir] 5 mg PO Q4H PRN PRN 7 Days #12 tab PRN Reason: Severe Pain (-06/05) RX: Tamsulosin HCl [Flomax] 0.4 mg PO DAILY@1730 #30 cap Primary Care Physician: Madeleine Subramanian MD [Primary Care Provider] - Please Follow Up With: Von Gold MD - [phone] When: Call to make an appointment to be seen in 2 days. - - for catheter Meaningful Use Info Meaningful Use Diagnoses (Choose all that apply): None applicable
== END 2017-10-30 13:00 | disposition home or self-care (01) | DRG 331 ==
PROVIDERS: Anesthesiology; Admitting Provider Surgery; Family Provider Family Medicine; PCP Family Medicine; Visit Provider Surgery
PROC: 0DTF4ZZ Resection of Right Large Intestine, Percutaneous Endoscopic Approach (ICD-10-PCS; CPT 44205; principal; 2017-10-26 12:40)
DX: C18.4 Malignant neoplasm of transverse colon (principal); I48.91 Unspecified atrial fibrillation; D64.9 Anemia, unspecified; Z87.891 Personal history of nicotine dependence; Z79.01 Long term (current) use of anticoagulants; I10 Essential (primary) hypertension; E78.00 Pure hypercholesterolemia, unspecified
CPT/HCPCS: 36415; 74019; 80048; 80053; 83735; 84100; 85025; 85027; 85610; 85730; 86850; 86900; 86920; 86922; 88309; 88341; 88342; 93005; 94762; 97802; 99406; J3010; J7030; J7040; J7120; P9016; A4216; J2405

== ENCOUNTER 2017-11-20 09:31 | Outpatient (RCR) | payer MEDICARE, BC, SELFPAY ==
[2017-11-20 10:28] LABS: International Normalized Ratio 2.4; Prothrombin Time (Protime)PT. 26.2 SECONDS (11.7-14.9)
== END 2017-11-20 10:00 | disposition home or self-care (01) ==
LOC: LAB 09:31
PROVIDERS: Family Provider Family Medicine; PCP Family Medicine; Visit Provider Internal Medicine Cardiovascular Disease
DX: Z79.01 Long term (current) use of anticoagulants (principal)
CPT/HCPCS: 36415; 85610

== ENCOUNTER 2017-12-04 11:46 | Outpatient (RCR) | payer MEDICARE, BC, SELFPAY ==
[2017-12-04 12:38] LABS: Prothrombin Time (Protime)PT. 22.3 SECONDS (11.7-14.9)
== END 2017-12-04 12:00 | disposition home or self-care (01) ==
LOC: LAB 11:46
PROVIDERS: Family Provider Family Medicine; PCP Family Medicine; Visit Provider Internal Medicine Cardiovascular Disease
DX: Z79.01 Long term (current) use of anticoagulants (principal)
CPT/HCPCS: 36415; 85610

== ENCOUNTER 2017-12-25 09:30 | Outpatient (RCR) | payer MEDICARE, BC, SELFPAY ==
[2017-12-25 10:25] LABS: Prothrombin Time (Protime)PT. 22.6 SECONDS (11.7-14.9)
== END 2017-12-25 10:00 | disposition home or self-care (01) ==
LOC: LAB 09:30
PROVIDERS: Family Provider Family Medicine; PCP Family Medicine; Visit Provider Internal Medicine Cardiovascular Disease
DX: Z79.01 Long term (current) use of anticoagulants (principal)
CPT/HCPCS: 36415; 85610

== ENCOUNTER 2018-02-08 08:41 | Outpatient (RCR) | payer MEDICARE, BC, SELFPAY ==
[2018-02-08 10:07] LABS: Prothrombin Time (Protime)PT. 22.6 SECONDS (11.7-14.9)
== END 2018-02-08 09:00 | disposition home or self-care (01) ==
LOC: LAB 08:41
PROVIDERS: Family Provider Family Medicine; PCP Family Medicine; Visit Provider Internal Medicine Cardiovascular Disease
DX: Z79.01 Long term (current) use of anticoagulants (principal)
CPT/HCPCS: 36415; 85610

== ENCOUNTER 2018-03-06 09:24 | Outpatient (RCR) | payer MEDICARE, BC, SELFPAY ==
[2018-03-06 10:22] LABS: International Normalized Ratio 1.7; Prothrombin Time (Protime)PT. 20.1 SECONDS (11.7-14.9)
[2018-03-27 08:38] LABS: International Normalized Ratio 1.6; Prothrombin Time (Protime)PT. 19.5 SECONDS (11.7-14.9)
== END 2018-03-06 09:50 | disposition home or self-care (01) ==
LOC: LAB 09:24
PROVIDERS: Visit Provider Internal Medicine Cardiovascular Disease
DX: Z79.01 Long term (current) use of anticoagulants (principal)
CPT/HCPCS: 36415; 85610

== ENCOUNTER 2018-04-18 09:14 | Outpatient (RCR) | payer MEDICARE, BC, SELFPAY ==
[2018-04-02 09:18] LABS: International Normalized Ratio 2.1; Prothrombin Time (Protime)PT. 23.3 SECONDS (11.7-14.9)
[2018-04-18 10:54] LABS: International Normalized Ratio 2.5; Prothrombin Time (Protime)PT. 27.2 SECONDS (11.7-14.9)
== END 2018-04-18 11:00 | disposition home or self-care (01) ==
LOC: LAB 09:14
PROVIDERS: Visit Provider Internal Medicine Cardiovascular Disease
DX: Z79.01 Long term (current) use of anticoagulants (principal)
CPT/HCPCS: 36415; 85610

== ENCOUNTER 2018-05-21 09:27 | Outpatient (RCR) | payer MEDICARE, BC, SELFPAY ==
[2018-05-21 11:02] LABS: International Normalized Ratio 2.2; Prothrombin Time (Protime)PT. 24.5 SECONDS (11.7-14.9)
== END 2018-05-21 11:00 | disposition home or self-care (01) ==
LOC: LAB 09:27
PROVIDERS: Visit Provider Internal Medicine Cardiovascular Disease
DX: Z79.01 Long term (current) use of anticoagulants (principal)
CPT/HCPCS: 36415; 85610

== ENCOUNTER 2018-07-03 07:08 | Outpatient (RCR) | payer MEDICARE, BC, SELFPAY ==
[2018-07-03 07:55] LABS: International Normalized Ratio 2.5; Prothrombin Time (Protime)PT. 26.9 SECONDS (11.7-14.9)
== END 2018-07-29 10:55 | disposition home or self-care (01) ==
LOC: LAB 07:08
PROVIDERS: Referring Provider Internal Medicine Cardiovascular Disease; Visit Provider Internal Medicine Cardiovascular Disease
DX: Z79.01 Long term (current) use of anticoagulants (principal)
CPT/HCPCS: 36415; 85610

== ENCOUNTER 2018-07-30 06:48 | Outpatient (RCR) | payer MEDICARE, BC, SELFPAY ==
[2018-01-11 09:53] VITALS: BMI 29.7
[2018-07-30 08:32] LABS: International Normalized Ratio 2.3; Prothrombin Time (Protime)PT. 25.8 SECONDS (11.7-14.9)
== END 2018-07-30 07:00 | disposition home or self-care (01) ==
LOC: LAB 06:48
PROVIDERS: Referring Provider Internal Medicine Cardiovascular Disease; Visit Provider Internal Medicine Cardiovascular Disease
DX: I48.91 Unspecified atrial fibrillation (principal); Z79.01 Long term (current) use of anticoagulants
CPT/HCPCS: 36415; 85610

== ENCOUNTER 2018-08-28 09:54 | Outpatient (RCR) | payer MEDICARE, BC, SELFPAY ==
[2018-08-09 09:57] VITALS: BMI 32.1
[2018-08-28 11:19] LABS: International Normalized Ratio 2.5; Prothrombin Time (Protime)PT. 26.7 SECONDS (11.7-14.9)
== END 2018-08-28 10:00 | disposition home or self-care (01) ==
LOC: LAB 09:54
PROVIDERS: PCP Family Medicine; Referring Provider Internal Medicine Cardiovascular Disease; Visit Provider Internal Medicine Cardiovascular Disease
DX: I48.91 Unspecified atrial fibrillation (principal); Z79.01 Long term (current) use of anticoagulants
CPT/HCPCS: 36415; 85610

== ENCOUNTER → 2018-09-06 09:24 | Outpatient (CLI) | payer MEDICARE, BC, SELFPAY ==
[2018-08-09 09:57] VITALS: BMI 32.1
--- NOTE | 2018-09-06 09:27 | ECHOCS_ITS ---
Version 2 Reason For Study: Afib Procedure This was a 2D Doppler, Color Flow transthoracic echocardiogram. The study was technically difficult. Exam performed in department. Left Ventricle Normal LV size. Moderate concentric left ventricular hypertrophy. Left ventricular systolic function is normal. The estimated ejection fraction is 60 %. No regional wall motion abnormalities noted. Right Ventricle Normal RV size. Normal systolic function. Atria The left atrium is severely enlarged. The right atrium is severely enlarged. Mitral Valve Normal mitral valve. Tricuspid Valve Normal tricuspid valve. Aortic Valve The aortic valve is not well visualized. Pulmonic Valve The pulmonic valve is not well visualized. Great Vessels Normal aortic root. The pulmonary artery is normal size. Normal inferior vena cava. Pericardium/Pleural No pericardial effusion. Medication 22 gauge I.V. with prn adaptor inserted into right arm. Diluted definity 6ml given slow IV push to enhance endocardial definition. MMode/2D Measurements & Calculations LVIDd: 4.8 cm IVSd: 1.3 cm LA dimension: 5.2 cm LVIDs: 3.1 cm LVPWd: 1.7 cm RVDd: 4.0 cm FS: 36.0 % LAV(MOD-bp): 156.4 ml LA A4 area: 42.8 cm2 RA A4 area: 35.7 cm2 LAV(MOD-bp) Indexed: 70.9 ml/m2 LAV(MOD-sp2): 121.8 ml LAV(MOD-sp4): 181.8 ml Doppler Measurements & Calculations MV E max tejas: 123.0 cm/sec Ao V2 max: 100.1 cm/sec LV V1 max: 83.2 cm/sec Ao max P.0 mmHg LV V1 max P.8 mmHg PA V2 max: 80.3 cm/sec TR max tejas: 273.3 cm/sec TR max P.9 mmHg Interpretation Summary Normal LV size. Moderate concentric left ventricular hypertrophy. Left ventricular systolic function is normal. The estimated ejection fraction is 60 %. No regional wall motion abnormalities noted. The left atrium is severely enlarged. The right atrium is severely enlarged. Contrast injection was performed. Ordering Physician: Anthony Romero Referring Physician: Anthony Romero Performed By: Rodrigo Ayala RCS
== END ==
PROVIDERS: Referring Provider Internal Medicine Cardiovascular Disease; Visit Provider Internal Medicine Cardiovascular Disease
DX: I48.2 Chronic atrial fibrillation (principal)
CPT/HCPCS: 93306; Q9957; A4216; C8929

== ENCOUNTER 2018-09-30 09:53 | Outpatient (RCR) | payer MEDICARE, BC, SELFPAY ==
[2018-08-09 09:57] VITALS: BMI 32.1
[2018-09-30 10:31] LABS: International Normalized Ratio 2.1
== END 2018-10-24 14:38 | disposition home or self-care (01) ==
LOC: LAB 09:53
PROVIDERS: Referring Provider Internal Medicine Cardiovascular Disease; Visit Provider Internal Medicine Cardiovascular Disease
DX: I48.91 Unspecified atrial fibrillation (principal); Z79.01 Long term (current) use of anticoagulants
CPT/HCPCS: 36415; 85610

== ENCOUNTER 2018-10-30 06:57 | Outpatient (RCR) | payer MEDICARE, BC, SELFPAY ==
[2018-08-09 09:57] VITALS: BMI 32.1
[2018-10-30 08:40] LABS: International Normalized Ratio 2.5
== END 2018-10-30 07:57 | disposition home or self-care (01) ==
LOC: LAB 06:57
PROVIDERS: Referring Provider Internal Medicine Cardiovascular Disease; Visit Provider Internal Medicine Cardiovascular Disease
DX: I48.91 Unspecified atrial fibrillation (principal); Z79.01 Long term (current) use of anticoagulants
CPT/HCPCS: 36415; 85610

== ENCOUNTER 2018-12-04 06:51 | Outpatient (RCR) | payer MEDICARE, BC, SELFPAY ==
[2018-08-09 09:57] VITALS: BMI 32.1
[2018-12-04 09:27] LABS: International Normalized Ratio 2.8; Prothrombin Time (Protime)PT. 29.4 SECONDS (11.7-14.9)
== END 2018-12-24 16:00 | disposition home or self-care (01) ==
LOC: LAB 06:51
PROVIDERS: Referring Provider Internal Medicine Cardiovascular Disease; Visit Provider Internal Medicine Cardiovascular Disease
DX: I48.91 Unspecified atrial fibrillation (principal); Z79.01 Long term (current) use of anticoagulants
CPT/HCPCS: 36415; 85610

== ENCOUNTER 2018-12-25 11:35 | Outpatient (RCR) | payer MEDICARE, BC, SELFPAY ==
[2018-08-09 09:57] VITALS: BMI 32.1
[2018-12-25 12:38] LABS: International Normalized Ratio 2.4
== END 2018-12-25 16:00 | disposition home or self-care (01) ==
LOC: LAB 11:35
PROVIDERS: Referring Provider Internal Medicine Cardiovascular Disease; Visit Provider Internal Medicine Cardiovascular Disease
DX: I48.91 Unspecified atrial fibrillation (principal); Z79.01 Long term (current) use of anticoagulants
CPT/HCPCS: 36415; 85610

== ENCOUNTER 2019-01-30 10:10 | Outpatient (RCR) | payer MEDICARE, BC, SELFPAY ==
[2018-08-09 09:57] VITALS: BMI 32.1
[2019-01-30 10:51] LABS: International Normalized Ratio 2.6; Prothrombin Time (Protime)PT. 28.1 SECONDS (11.7-14.9)
== END 2019-01-30 11:00 | disposition home or self-care (01) ==
LOC: LAB 10:10
PROVIDERS: Referring Provider Internal Medicine Cardiovascular Disease; Visit Provider Internal Medicine Cardiovascular Disease
DX: I48.91 Unspecified atrial fibrillation (principal); Z79.01 Long term (current) use of anticoagulants
CPT/HCPCS: 36415; 85610

== ENCOUNTER 2019-03-04 10:54 | Outpatient (RCR) | payer MEDICARE, BC, SELFPAY ==
[2019-02-07 14:02] VITALS: BMI 34.0
[2019-03-04 11:57] LABS: International Normalized Ratio 2.2
== END 2019-03-04 16:17 | disposition home or self-care (01) ==
LOC: LAB 10:54
PROVIDERS: PCP Family Medicine; Referring Provider Internal Medicine Cardiovascular Disease; Visit Provider Internal Medicine Cardiovascular Disease
DX: I48.91 Unspecified atrial fibrillation (principal); Z79.01 Long term (current) use of anticoagulants
CPT/HCPCS: 36415; 85610

== ENCOUNTER 2019-04-04 07:11 | Outpatient (RCR) | payer MEDICARE, BC, SELFPAY ==
[2019-02-07 14:02] VITALS: BMI 34.0
[2019-04-04 08:22] LABS: International Normalized Ratio 2.3; Prothrombin Time (Protime)PT. 25.1 SECONDS (11.7-14.9)
== END 2019-04-04 09:00 | disposition home or self-care (01) ==
LOC: LAB 07:11
PROVIDERS: PCP Family Medicine; Referring Provider Internal Medicine Cardiovascular Disease; Visit Provider Internal Medicine Cardiovascular Disease
DX: I48.91 Unspecified atrial fibrillation (principal); Z79.01 Long term (current) use of anticoagulants
CPT/HCPCS: 36415; 85610

== ENCOUNTER 2019-05-02 08:28 | Outpatient (RCR) | payer MEDICARE, BC, SELFPAY ==
[2019-02-07 14:02] VITALS: BMI 34.0
[2019-05-02 11:30] LABS: Prothrombin Time (Protime)PT. 22.8 SECONDS (11.7-14.9)
== END 2019-05-02 10:00 | disposition home or self-care (01) ==
LOC: LAB 08:28
PROVIDERS: Referring Provider Internal Medicine Cardiovascular Disease; Visit Provider Internal Medicine Cardiovascular Disease
DX: I48.91 Unspecified atrial fibrillation (principal); Z79.01 Long term (current) use of anticoagulants
CPT/HCPCS: 36415; 85610

== ENCOUNTER 2019-06-16 08:31 | Outpatient (RCR) | payer MEDICARE, BC, SELFPAY ==
[2019-02-07 14:02] VITALS: BMI 34.0
[2019-06-06 10:23] LABS: International Normalized Ratio 3.3; Prothrombin Time (Protime)PT. 33.5 SECONDS (11.7-14.9)
[2019-06-16 09:36] LABS: International Normalized Ratio 2.5
== END 2019-06-16 18:00 | disposition home or self-care (01) ==
LOC: LAB 08:31
PROVIDERS: Referring Provider Internal Medicine Cardiovascular Disease; Visit Provider Internal Medicine Cardiovascular Disease
DX: I48.91 Unspecified atrial fibrillation (principal); Z79.01 Long term (current) use of anticoagulants
CPT/HCPCS: 36415; 85610

== ENCOUNTER 2019-07-25 13:03 | Outpatient (RCR) | payer MEDICARE, BC, SELFPAY ==
[2019-02-07 14:02] VITALS: BMI 34.0
[2019-07-25 14:30] LABS: International Normalized Ratio 2.5; Prothrombin Time (Protime)PT. 26.6 SECONDS (11.7-14.9)
== END 2019-07-25 18:00 | disposition home or self-care (01) ==
LOC: LAB 13:03
PROVIDERS: Referring Provider Internal Medicine Cardiovascular Disease; Visit Provider Internal Medicine Cardiovascular Disease
DX: I48.91 Unspecified atrial fibrillation (principal); Z79.01 Long term (current) use of anticoagulants
CPT/HCPCS: 36415; 85610

== ENCOUNTER 2019-09-05 08:37 | Outpatient (RCR) | payer MEDICARE, BC, SELFPAY ==
[2019-02-07 14:02] VITALS: BMI 34.0
[2019-09-05 09:45] LABS: International Normalized Ratio 2.1; Prothrombin Time (Protime)PT. 23.8 SECONDS (11.7-14.9)
== END 2019-09-05 18:00 | disposition home or self-care (01) ==
LOC: LAB 08:37
PROVIDERS: Referring Provider Internal Medicine Cardiovascular Disease; Visit Provider Internal Medicine Cardiovascular Disease
DX: I48.20 Chronic atrial fibrillation, unspecified (principal); Z79.01 Long term (current) use of anticoagulants
CPT/HCPCS: 36415; 85610

== ENCOUNTER 2019-10-10 08:36 | Outpatient (RCR) | payer MEDICARE, BC, SELFPAY ==
[2019-02-07 14:02] VITALS: BMI 34.0
[2019-10-10 09:38] LABS: International Normalized Ratio 3.1; Prothrombin Time (Protime)PT. 32.3 SECONDS (11.7-14.9)
== END 2019-10-10 18:00 | disposition home or self-care (01) ==
LOC: LAB 08:36
PROVIDERS: Referring Provider Internal Medicine Cardiovascular Disease; Visit Provider Internal Medicine Cardiovascular Disease
DX: I48.20 Chronic atrial fibrillation, unspecified (principal); Z79.01 Long term (current) use of anticoagulants
CPT/HCPCS: 36415; 85610

== ENCOUNTER 2019-11-07 08:40 | Outpatient (RCR) | payer MEDICARE, BC, SELFPAY ==
[2019-02-07 14:02] VITALS: BMI 34.0
[2019-11-07 09:30] LABS: International Normalized Ratio 2.9; Prothrombin Time (Protime)PT. 30.1 SECONDS (11.7-14.9)
== END 2019-11-07 18:00 | disposition home or self-care (01) ==
LOC: LAB 08:40
PROVIDERS: Referring Provider Internal Medicine Cardiovascular Disease; Visit Provider Internal Medicine Cardiovascular Disease
DX: I48.20 Chronic atrial fibrillation, unspecified (principal); Z79.01 Long term (current) use of anticoagulants
CPT/HCPCS: 36415; 85610

== ENCOUNTER 2019-12-31 11:28 | Outpatient (RCR) | payer MEDICARE, BC, SELFPAY ==
[2019-02-07 14:02] VITALS: BMI 34.0
[2019-12-31 12:00] LABS: Prothrombin Time (Protime)PT. 30.4 SECONDS (11.7-14.9)
== END 2019-12-31 18:00 | disposition home or self-care (01) ==
LOC: LAB 11:28
PROVIDERS: Referring Provider Internal Medicine Cardiovascular Disease; Visit Provider Internal Medicine Cardiovascular Disease
DX: I48.20 Chronic atrial fibrillation, unspecified (principal); Z79.01 Long term (current) use of anticoagulants
CPT/HCPCS: 36415; 85610

== ENCOUNTER 2020-02-02 09:44 | Outpatient (RCR) | payer MEDICARE, BC, SELFPAY ==
[2020-01-22 13:45] VITALS: BMI 33.0
[2020-02-02 10:37] LABS: International Normalized Ratio 3.1; Prothrombin Time (Protime)PT. 31.3 SECONDS (11.7-14.9)
== END 2020-02-02 18:00 | disposition home or self-care (01) ==
LOC: LAB 09:44
PROVIDERS: Referring Provider Internal Medicine Cardiovascular Disease; Visit Provider Internal Medicine Cardiovascular Disease
DX: I48.20 Chronic atrial fibrillation, unspecified (principal); Z79.01 Long term (current) use of anticoagulants
CPT/HCPCS: 36415; 85610

== ENCOUNTER 2020-03-03 08:56 | Outpatient (RCR) | payer MEDICARE, BC, SELFPAY ==
[2020-01-22 13:45] VITALS: BMI 33.0
[2020-03-03 09:27] LABS: International Normalized Ratio 3.1; Prothrombin Time (Protime)PT. 31.3 SECONDS (11.7-14.9)
== END 2020-03-03 18:00 | disposition home or self-care (01) ==
LOC: LAB 08:56
PROVIDERS: Referring Provider Internal Medicine Cardiovascular Disease; Visit Provider Internal Medicine Cardiovascular Disease
DX: I48.20 Chronic atrial fibrillation, unspecified (principal); Z79.01 Long term (current) use of anticoagulants
CPT/HCPCS: 36415; 85610

== ENCOUNTER 2020-04-01 11:40 | Outpatient (RCR) | payer MEDICARE, BC, SELFPAY ==
[2020-01-22 13:45] VITALS: BMI 33.0
[2020-04-01 12:25] LABS: International Normalized Ratio 2.6; Prothrombin Time (Protime)PT. 27.3 SECONDS (11.7-14.9)
== END 2020-04-26 18:00 | disposition home or self-care (01) ==
LOC: LAB 11:40
PROVIDERS: Referring Provider Internal Medicine Cardiovascular Disease; Visit Provider Internal Medicine Cardiovascular Disease
DX: I48.20 Chronic atrial fibrillation, unspecified (principal); Z79.01 Long term (current) use of anticoagulants
CPT/HCPCS: 36415; 85610

== ENCOUNTER 2020-05-06 11:20 | Outpatient (RCR) | payer MEDICARE, BC, SELFPAY ==
[2020-01-22 13:45] VITALS: BMI 33.0
[2020-05-06 12:52] LABS: International Normalized Ratio 2.9; Prothrombin Time (Protime)PT. 30.1 SECONDS (11.7-14.9)
== END 2020-05-06 18:00 | disposition home or self-care (01) ==
LOC: LAB 11:20
PROVIDERS: Referring Provider Internal Medicine Cardiovascular Disease; Visit Provider Internal Medicine Cardiovascular Disease
DX: I48.20 Chronic atrial fibrillation, unspecified (principal); Z79.01 Long term (current) use of anticoagulants
CPT/HCPCS: 36415; 85610

== ENCOUNTER 2020-06-11 08:32 | Outpatient (RCR) | payer MEDICARE, BC, SELFPAY ==
[2020-01-22 13:45] VITALS: BMI 33.0
[2020-06-11 10:00] LABS: International Normalized Ratio 3.2; Prothrombin Time (Protime)PT. 32.5 SECONDS (11.7-14.9)
== END 2020-06-11 18:00 | disposition home or self-care (01) ==
LOC: LAB 08:32
PROVIDERS: Referring Provider Internal Medicine Cardiovascular Disease; Visit Provider Internal Medicine Cardiovascular Disease
DX: I48.20 Chronic atrial fibrillation, unspecified (principal); Z79.01 Long term (current) use of anticoagulants
CPT/HCPCS: 36415; 85610

== ENCOUNTER 2020-06-28 08:33 | Outpatient (RCR) | payer MEDICARE, BC, SELFPAY ==
[2020-01-22 13:45] VITALS: BMI 33.0
[2020-06-28 09:38] LABS: International Normalized Ratio 2.8; Prothrombin Time (Protime)PT. 29.1 SECONDS (11.7-14.9)
== END 2020-06-28 18:00 | disposition home or self-care (01) ==
LOC: LAB 08:33
PROVIDERS: Referring Provider Internal Medicine Cardiovascular Disease; Visit Provider Internal Medicine Cardiovascular Disease
DX: I48.20 Chronic atrial fibrillation, unspecified (principal); Z79.01 Long term (current) use of anticoagulants
CPT/HCPCS: 36415; 85610

== ENCOUNTER 2020-08-06 08:32 | Outpatient (RCR) | payer MEDICARE, BC, SELFPAY ==
[2020-01-22 13:45] VITALS: BMI 33.0
[2020-08-06 09:36] LABS: International Normalized Ratio 2.9; Prothrombin Time (Protime)PT. 29.5 SECONDS (11.7-14.9)
== END 2020-08-06 18:00 | disposition home or self-care (01) ==
LOC: LAB 08:32
PROVIDERS: Referring Provider Internal Medicine Cardiovascular Disease; Visit Provider Internal Medicine Cardiovascular Disease
DX: I48.20 Chronic atrial fibrillation, unspecified (principal); Z79.01 Long term (current) use of anticoagulants
CPT/HCPCS: 36415; 85610

== ENCOUNTER 2020-09-03 08:44 | Outpatient (RCR) | payer MEDICARE, BC, SELFPAY ==
[2020-01-22 13:45] VITALS: BMI 33.0
[2020-09-03 10:24] LABS: Prothrombin Time (Protime)PT. 30.5 SECONDS (11.7-14.9)
== END 2020-09-03 18:00 | disposition home or self-care (01) ==
LOC: LAB 08:44
PROVIDERS: Referring Provider Internal Medicine Cardiovascular Disease; Visit Provider Internal Medicine Cardiovascular Disease
DX: I48.11 Longstanding persistent atrial fibrillation (principal); Z79.01 Long term (current) use of anticoagulants
CPT/HCPCS: 36415; 85610

== ENCOUNTER 2020-10-13 10:59 | Outpatient (RCR) | payer MEDICARE, BC, SELFPAY ==
[2020-01-22 13:45] VITALS: BMI 33.0
[2020-10-13 11:56] LABS: International Normalized Ratio 2.8; Prothrombin Time (Protime)PT. 29.5 SECONDS (11.7-14.9)
== END 2020-10-13 18:00 | disposition home or self-care (01) ==
LOC: LAB 10:59
PROVIDERS: Referring Provider Internal Medicine Cardiovascular Disease; Visit Provider Internal Medicine Cardiovascular Disease
DX: I48.11 Longstanding persistent atrial fibrillation (principal); Z79.01 Long term (current) use of anticoagulants
CPT/HCPCS: 36415; 85610

== ENCOUNTER 2020-11-09 09:32 | Outpatient (RCR) | payer MEDICARE, BC, SELFPAY ==
[2020-01-22 13:45] VITALS: BMI 33.0
[2020-11-09 10:13] LABS: International Normalized Ratio 2.8; Prothrombin Time (Protime)PT. 29.1 SECONDS (11.7-14.9)
== END 2020-11-09 18:00 | disposition home or self-care (01) ==
LOC: LAB 09:32
PROVIDERS: Referring Provider Internal Medicine Cardiovascular Disease; Visit Provider Internal Medicine Cardiovascular Disease
DX: Z79.01 Long term (current) use of anticoagulants (principal); I48.11 Longstanding persistent atrial fibrillation
CPT/HCPCS: 36415; 85610

== ENCOUNTER 2020-12-24 08:11 | Outpatient (RCR) | payer MEDICARE, BC, SELFPAY ==
[2020-01-22 13:45] VITALS: BMI 33.0
[2020-12-07 11:50] LABS: International Normalized Ratio 3.3; Prothrombin Time (Protime)PT. 32.6 SECONDS (11.7-14.9)
[2020-12-24 09:51] LABS: International Normalized Ratio 3.8; Prothrombin Time (Protime)PT. 36.8 SECONDS (11.7-14.9)
== END 2020-12-24 18:00 | disposition home or self-care (01) ==
LOC: LAB 08:11
PROVIDERS: Referring Provider Internal Medicine Cardiovascular Disease; Visit Provider Internal Medicine Cardiovascular Disease
DX: I48.11 Longstanding persistent atrial fibrillation (principal); Z79.01 Long term (current) use of anticoagulants
CPT/HCPCS: 36415; 85610

== ENCOUNTER 2021-01-20 09:45 | Outpatient (RCR) | payer MEDICARE, BC, SELFPAY ==
[2020-01-22 13:45] VITALS: BMI 33.0
[2020-12-27 11:14] LABS: International Normalized Ratio 1.6; Prothrombin Time (Protime)PT. 18.3 SECONDS (11.7-14.9)
[2021-01-06 11:08] LABS: International Normalized Ratio 1.9; Prothrombin Time (Protime)PT. 20.6 SECONDS (11.7-14.9)
[2021-01-20 11:17] LABS: Prothrombin Time (Protime)PT. 30.4 SECONDS (11.7-14.9)
== END 2021-01-20 18:00 | disposition home or self-care (01) ==
LOC: LAB 09:45
PROVIDERS: Referring Provider Internal Medicine Cardiovascular Disease; Visit Provider Internal Medicine Cardiovascular Disease
DX: I48.11 Longstanding persistent atrial fibrillation (principal); Z79.01 Long term (current) use of anticoagulants
CPT/HCPCS: 36415; 85610

== ENCOUNTER 2021-02-03 11:49 | Outpatient (RCR) | payer MEDICARE, BC, SELFPAY ==
[2020-01-22 13:45] VITALS: BMI 33.0
[2021-02-03 14:08] LABS: International Normalized Ratio 2.5; Prothrombin Time (Protime)PT. 26.4 SECONDS (11.7-14.9)
== END 2021-02-03 18:00 | disposition home or self-care (01) ==
LOC: LAB 11:49
PROVIDERS: Referring Provider Internal Medicine Cardiovascular Disease; Visit Provider Internal Medicine Cardiovascular Disease
DX: I48.11 Longstanding persistent atrial fibrillation (principal); Z79.01 Long term (current) use of anticoagulants
CPT/HCPCS: 36415; 85610

== ENCOUNTER → 2021-02-11 10:21 | Outpatient (CLI) | payer MEDICARE, BC, SELFPAY ==
[2021-02-11 08:30] VITALS: BMI 33.5
[2021-02-11 11:59] LABS: AST(SGOT) 16 U/L (15-37); Alanine Aminotransfer ALT/SGPT 17 U/L (16-61); Albumin, Serum 3.5 g/dL (3.2-5.0); Alkaline Phosphatase 71 U/L (45-117); Anion Gap 6 (5-15); BUN 13 mg/dL (7-18); BUN/Creat Ratio 13.9 RATIO (10-20); Bilirubin, Direct 0.24 mg/dL (0.00-0.30); Calcium,Total 8.6 mg/dL (8.5-10.1); Chloride 103 mmol/L (98-107); Cholesterol 168 mg/dL (200); Creatinine, Serum 0.94 mg/dL (0.70-1.30); EST Glomerular Filtration Rate 83 mL/min (>60); Est Glom Filt Rate - Afr Amer 101 mL/min (>60); Globulin 4.5 g/dL (2.2-4.2); Glucose 97 mg/dL (74-106); High Density Lipoprotein 54 mg/dL; Sodium Level 139 mmol/L (136-145); Triglycerides 164 mg/dL; Very Low Density Lipoprotein 33 mg/dL (5-40)
== END ==
PROVIDERS: Referring Provider Internal Medicine Cardiovascular Disease; Visit Provider Internal Medicine Cardiovascular Disease
DX: I10 Essential (primary) hypertension (principal); E78.00 Pure hypercholesterolemia, unspecified
CPT/HCPCS: 36415; 80048; 80061; 80076

== ENCOUNTER 2021-04-05 12:51 | Outpatient (RCR) | payer MEDICARE, BC, SELFPAY ==
[2021-02-11 08:30] VITALS: BMI 33.5
[2021-04-05 13:56] LABS: International Normalized Ratio 2.3; Prothrombin Time (Protime)PT. 24.2 SECONDS (11.7-14.9)
== END 2021-04-05 18:00 | disposition home or self-care (01) ==
LOC: LAB 12:51
PROVIDERS: Referring Provider Internal Medicine Cardiovascular Disease; Visit Provider Internal Medicine Cardiovascular Disease
DX: I48.11 Longstanding persistent atrial fibrillation (principal); Z79.01 Long term (current) use of anticoagulants
CPT/HCPCS: 36415; 85610

== ENCOUNTER 2021-05-11 09:23 | Outpatient (RCR) | payer MEDICARE, BC, SELFPAY ==
[2021-04-26 20:01] VITALS: BMI 33.5
[2021-05-11 10:34] LABS: International Normalized Ratio 3.2; Prothrombin Time (Protime)PT. 31.9 SECONDS (11.7-14.9)
== END 2021-06-26 03:33 | disposition home or self-care (01) ==
LOC: LAB 09:23
PROVIDERS: Referring Provider Internal Medicine Cardiovascular Disease; Visit Provider Internal Medicine Cardiovascular Disease
DX: I48.11 Longstanding persistent atrial fibrillation (principal); Z79.01 Long term (current) use of anticoagulants
CPT/HCPCS: 36415; 85610

== ENCOUNTER 2021-06-27 08:50 | Outpatient (RCR) | payer MEDICARE, BC, SELFPAY ==
[2021-06-26 03:33] VITALS: BMI 33.5
[2021-06-27 09:35] LABS: International Normalized Ratio 2.1; Prothrombin Time (Protime)PT. 22.6 SECONDS (11.7-14.9)
== END 2021-07-26 18:00 | disposition home or self-care (01) ==
LOC: LAB 08:50
PROVIDERS: Referring Provider Internal Medicine Cardiovascular Disease; Visit Provider Internal Medicine Cardiovascular Disease
DX: I48.11 Longstanding persistent atrial fibrillation (principal); Z79.01 Long term (current) use of anticoagulants
CPT/HCPCS: 36415; 85610

== ENCOUNTER 2021-08-02 12:45 | Outpatient (RCR) | payer MEDICARE, BC, SELFPAY ==
[2021-07-27 02:13] VITALS: BMI 33.5
[2021-08-02 13:42] LABS: International Normalized Ratio 2.6
== END 2021-08-27 18:00 | disposition home or self-care (01) ==
LOC: LAB 12:45
PROVIDERS: Referring Provider Internal Medicine Cardiovascular Disease; Visit Provider Internal Medicine Cardiovascular Disease
DX: I48.11 Longstanding persistent atrial fibrillation (principal); Z79.01 Long term (current) use of anticoagulants
CPT/HCPCS: 36415; 85610

== ENCOUNTER 2021-09-07 10:46 | Outpatient (RCR) | payer MEDICARE, BC, SELFPAY ==
[2021-08-28 04:01] VITALS: BMI 33.5
[2021-09-07 12:07] LABS: International Normalized Ratio 2.8; Prothrombin Time (Protime)PT. 28.7 SECONDS (11.7-14.9)
== END 2021-09-26 18:00 | disposition home or self-care (01) ==
LOC: LAB 10:46
PROVIDERS: Referring Provider Internal Medicine Cardiovascular Disease; Visit Provider Internal Medicine Cardiovascular Disease
DX: I48.11 Longstanding persistent atrial fibrillation (principal); Z79.01 Long term (current) use of anticoagulants
CPT/HCPCS: 36415; 85610

== ENCOUNTER 2021-10-12 10:42 | Outpatient (RCR) | payer MEDICARE, BC, SELFPAY ==
[2021-09-26 22:48] VITALS: BMI 33.5
[2021-10-12 12:38] LABS: Prothrombin Time (Protime)PT. 21.8 SECONDS (11.7-14.9)
== END 2021-10-12 18:00 | disposition home or self-care (01) ==
LOC: LAB 10:42
PROVIDERS: Referring Provider Internal Medicine Cardiovascular Disease; Visit Provider Internal Medicine Cardiovascular Disease
DX: I48.11 Longstanding persistent atrial fibrillation (principal); Z79.01 Long term (current) use of anticoagulants
CPT/HCPCS: 36415; 85610

== ENCOUNTER 2021-11-09 09:12 | Outpatient (RCR) | payer MEDICARE, BC, SELFPAY ==
[2021-10-25 09:32] VITALS: BMI 33.5
[2021-11-09 09:58] LABS: International Normalized Ratio 2.2; Prothrombin Time (Protime)PT. 23.8 SECONDS (11.7-14.9)
== END 2021-11-24 18:00 | disposition home or self-care (01) ==
LOC: LAB 09:12
PROVIDERS: Referring Provider Internal Medicine Cardiovascular Disease; Visit Provider Internal Medicine Cardiovascular Disease
DX: I48.11 Longstanding persistent atrial fibrillation (principal); Z79.01 Long term (current) use of anticoagulants
CPT/HCPCS: 36415; 85610

== ENCOUNTER 2021-12-21 12:03 | Outpatient (RCR) | payer MEDICARE, BC, SELFPAY ==
[2021-11-25 01:34] VITALS: BMI 33.5
[2021-12-21 12:35] LABS: Prothrombin Time (Protime)PT. 22.5 SECONDS (11.7-14.9)
== END 2021-12-21 18:00 | disposition home or self-care (01) ==
LOC: LAB 12:03
PROVIDERS: Referring Provider Internal Medicine Cardiovascular Disease; Visit Provider Internal Medicine Cardiovascular Disease
DX: I48.11 Longstanding persistent atrial fibrillation (principal); Z79.01 Long term (current) use of anticoagulants
CPT/HCPCS: 36415; 85610

== ENCOUNTER 2022-01-13 08:40 | Outpatient (RCR) | payer MEDICARE, BC, SELFPAY ==
[2021-12-25 02:52] VITALS: BMI 33.5
[2022-01-13 09:56] LABS: International Normalized Ratio 1.8; Prothrombin Time (Protime)PT. 20.4 SECONDS (11.7-14.9)
== END 2022-01-13 18:00 | disposition home or self-care (01) ==
LOC: LAB 08:40
PROVIDERS: Referring Provider Internal Medicine Cardiovascular Disease; Visit Provider Internal Medicine Cardiovascular Disease
DX: I48.11 Longstanding persistent atrial fibrillation (principal); Z79.01 Long term (current) use of anticoagulants
CPT/HCPCS: 36415; 85610

== ENCOUNTER 2022-02-09 11:13 | Outpatient (RCR) | payer MEDICARE, BC, SELFPAY ==
[2022-01-24 20:31] VITALS: BMI 33.5
[2022-02-09 13:31] LABS: International Normalized Ratio 2.3; Prothrombin Time (Protime)PT. 25.2 SECONDS (11.7-14.9)
== END 2022-02-09 23:59 | disposition home or self-care (01) ==
LOC: LAB 11:13
PROVIDERS: Referring Provider Internal Medicine Cardiovascular Disease; Visit Provider Internal Medicine Cardiovascular Disease
DX: I48.11 Longstanding persistent atrial fibrillation (principal); Z79.01 Long term (current) use of anticoagulants
CPT/HCPCS: 36415; 85610

== ENCOUNTER → 2022-02-16 | Outpatient (CLI) | payer MEDICARE, BC, SELFPAY ==
[2022-02-16 11:10] LABS: AST(SGOT) 13 U/L (15-37); Alanine Aminotransfer ALT/SGPT 15 U/L (16-61); Albumin, Serum 3.2 g/dL (3.2-5.0); Alkaline Phosphatase 54 U/L (45-117); Bilirubin, Direct 0.16 mg/dL (0.00-0.30); Cholesterol 155 mg/dL (200); Globulin 3.8 g/dL (2.2-4.2); High Density Lipoprotein 57 mg/dL; Triglycerides 150 mg/dL; Very Low Density Lipoprotein 30 mg/dL (5-40)
== END | disposition home or self-care (01) ==
LOC: LAB 09:55
PROVIDERS: Visit Provider Nurse Practitioner Gerontology
DX: E78.00 Pure hypercholesterolemia, unspecified (principal); E78.5 Hyperlipidemia, unspecified
CPT/HCPCS: 36415; 80061; 80076

== ENCOUNTER 2022-03-24 10:21 | Outpatient (RCR) | payer MEDICARE, BC, SELFPAY ==
[2022-02-24 06:51] VITALS: BMI 33.5
[2022-03-24 11:31] LABS: International Normalized Ratio 2.3; Prothrombin Time (Protime)PT. 24.5 SECONDS (11.7-14.9)
== END 2022-03-26 02:09 | disposition home or self-care (01) ==
LOC: LAB 10:21
PROVIDERS: Referring Provider Internal Medicine Cardiovascular Disease; Visit Provider Internal Medicine Cardiovascular Disease
DX: I48.11 Longstanding persistent atrial fibrillation (principal); Z79.01 Long term (current) use of anticoagulants
CPT/HCPCS: 36415; 85610

== ENCOUNTER 2022-05-09 09:44 | Outpatient (RCR) | payer MEDICARE, BC, SELFPAY ==
[2022-03-26 02:09] VITALS: BMI 33.5
[2022-04-27 08:12] LABS: International Normalized Ratio 1.9; Prothrombin Time (Protime)PT. 21.6 SECONDS (11.7-14.9)
[2022-05-09 10:40] LABS: International Normalized Ratio 1.9; Prothrombin Time (Protime)PT. 21.6 SECONDS (11.7-14.9)
== END 2022-05-09 18:00 | disposition home or self-care (01) ==
LOC: LAB 09:44
PROVIDERS: Referring Provider Internal Medicine Cardiovascular Disease; Visit Provider Internal Medicine Cardiovascular Disease
DX: I48.11 Longstanding persistent atrial fibrillation (principal); Z79.01 Long term (current) use of anticoagulants
CPT/HCPCS: 36415; 85610

== ENCOUNTER 2022-06-02 08:34 | Outpatient (RCR) | payer MEDICARE, BC, SELFPAY ==
[2022-05-26 20:37] VITALS: BMI 33.5
[2022-06-02 09:11] LABS: International Normalized Ratio 2.8; Prothrombin Time (Protime)PT. 29.6 SECONDS (11.7-14.9)
== END 2022-06-02 18:00 | disposition home or self-care (01) ==
LOC: LAB 08:34
PROVIDERS: Referring Provider Internal Medicine Cardiovascular Disease; Visit Provider Internal Medicine Cardiovascular Disease
DX: I48.11 Longstanding persistent atrial fibrillation (principal); Z79.01 Long term (current) use of anticoagulants
CPT/HCPCS: 36415; 85610

== ENCOUNTER 2022-06-30 08:12 | Outpatient (RCR) | payer MEDICARE, BC, SELFPAY ==
[2022-06-27 09:28] VITALS: BMI 33.5
[2022-06-30 09:51] LABS: International Normalized Ratio 2.5; Prothrombin Time (Protime)PT. 26.8 SECONDS (11.7-14.9)
== END 2022-07-26 18:00 | disposition home or self-care (01) ==
LOC: LAB 08:12
PROVIDERS: Referring Provider Internal Medicine Cardiovascular Disease; Visit Provider Internal Medicine Cardiovascular Disease
DX: I48.11 Longstanding persistent atrial fibrillation (principal); Z79.01 Long term (current) use of anticoagulants
CPT/HCPCS: 36415; 85610

== ENCOUNTER 2022-08-02 09:13 | Outpatient (RCR) | payer MEDICARE, BC, SELFPAY ==
[2022-07-26 22:56] VITALS: BMI 33.5
[2022-08-02 09:51] LABS: International Normalized Ratio 2.8; Prothrombin Time (Protime)PT. 29.4 SECONDS (11.7-14.9)
[2022-08-02 10:09] LABS: AST(SGOT) 12 U/L (15-37); Alanine Aminotransfer ALT/SGPT 19 U/L (16-61); Albumin, Serum 3.3 g/dL (3.2-5.0); Alkaline Phosphatase 51 U/L (45-117); Bilirubin, Direct 0.22 mg/dL (0.00-0.30); Cholesterol 167 mg/dL (200); Globulin 3.9 g/dL (2.2-4.2); High Density Lipoprotein 62 mg/dL; Protein, Total 7.2 g/dL (6.4-8.2); Triglycerides 135 mg/dL; Very Low Density Lipoprotein 27 mg/dL (5-40)
== END 2022-08-02 18:00 | disposition home or self-care (01) ==
LOC: LAB 09:13
PROVIDERS: Referring Provider Internal Medicine Cardiovascular Disease; Visit Provider Internal Medicine Cardiovascular Disease
DX: I48.11 Longstanding persistent atrial fibrillation (principal); Z79.01 Long term (current) use of anticoagulants; E78.00 Pure hypercholesterolemia, unspecified
CPT/HCPCS: 36415; 80061; 80076; 85610

== ENCOUNTER 2022-09-01 08:53 | Outpatient (RCR) | payer MEDICARE, BC, SELFPAY ==
[2022-08-27 00:52] VITALS: BMI 33.5
[2022-09-01 09:39] LABS: International Normalized Ratio 2.2; Prothrombin Time (Protime)PT. 23.9 SECONDS (11.7-14.9)
== END 2022-09-01 10:00 | disposition home or self-care (01) ==
LOC: LAB 08:53
PROVIDERS: Referring Provider Internal Medicine Cardiovascular Disease; Visit Provider Internal Medicine Cardiovascular Disease
DX: I48.11 Longstanding persistent atrial fibrillation (principal); Z79.01 Long term (current) use of anticoagulants
CPT/HCPCS: 36415; 85610

== ENCOUNTER 2022-10-06 08:33 | Outpatient (RCR) | payer MEDICARE, BC, SELFPAY ==
[2022-09-27 08:04] VITALS: BMI 33.5
[2022-10-06 09:25] LABS: Prothrombin Time (Protime)PT. 22.1 SECONDS (11.7-14.9)
== END 2022-10-06 18:00 | disposition home or self-care (01) ==
LOC: LAB 08:33
PROVIDERS: Referring Provider Internal Medicine Cardiovascular Disease; Visit Provider Internal Medicine Cardiovascular Disease
DX: I48.11 Longstanding persistent atrial fibrillation (principal); Z79.01 Long term (current) use of anticoagulants
CPT/HCPCS: 36415; 85610

== ENCOUNTER 2022-11-10 08:37 | Outpatient (RCR) | payer MEDICARE, BC, SELFPAY ==
[2022-10-24 19:56] VITALS: BMI 33.5
[2022-11-10 10:19] LABS: International Normalized Ratio 2.4; Prothrombin Time (Protime)PT. 26.1 SECONDS (11.7-14.9)
== END 2022-11-24 21:44 | disposition home or self-care (01) ==
LOC: LAB 08:37
PROVIDERS: Referring Provider Internal Medicine Cardiovascular Disease; Visit Provider Internal Medicine Cardiovascular Disease
DX: I48.11 Longstanding persistent atrial fibrillation (principal); Z79.01 Long term (current) use of anticoagulants
CPT/HCPCS: 36415; 85610

== ENCOUNTER 2022-11-30 08:41 | Outpatient (RCR) | payer MEDICARE, BC, SELFPAY ==
[2022-11-24 21:44] VITALS: BMI 33.5
[2022-11-30 10:33] LABS: International Normalized Ratio 2.7; Prothrombin Time (Protime)PT. 28.1 SECONDS (11.7-14.9)
== END 2022-12-24 01:09 | disposition home or self-care (01) ==
LOC: LAB 08:41
PROVIDERS: Referring Provider Internal Medicine Cardiovascular Disease; Visit Provider Internal Medicine Cardiovascular Disease
DX: I48.11 Longstanding persistent atrial fibrillation (principal); Z79.01 Long term (current) use of anticoagulants
CPT/HCPCS: 36415; 85610

== ENCOUNTER 2023-01-11 09:07 | Outpatient (RCR) | payer MEDICARE, BC, SELFPAY ==
[2022-12-24 01:10] VITALS: BMI 33.5
[2023-01-05 10:41] LABS: International Normalized Ratio 3.4; Prothrombin Time (Protime)PT. 35.1 SECONDS (11.7-14.9)
[2023-01-11 11:10] LABS: International Normalized Ratio 2.7; Prothrombin Time (Protime)PT. 29.1 SECONDS (11.7-14.9)
== END 2023-01-11 11:00 | disposition home or self-care (01) ==
LOC: LAB 09:07
PROVIDERS: Referring Provider Internal Medicine Cardiovascular Disease; Visit Provider Internal Medicine Cardiovascular Disease
DX: I48.11 Longstanding persistent atrial fibrillation (principal); Z79.01 Long term (current) use of anticoagulants
CPT/HCPCS: 36415; 85610

== ENCOUNTER 2023-02-22 08:16 | Outpatient (RCR) | payer MEDICARE, BC, SELFPAY ==
[2023-01-25 08:13] VITALS: BMI 33.5
[2023-02-06 08:24] LABS: International Normalized Ratio 1.8; Prothrombin Time (Protime)PT. 20.8 SECONDS (11.7-14.9)
[2023-02-06 08:44] LABS: AST(SGOT) 16 U/L (15-37); Alanine Aminotransfer ALT/SGPT 17 U/L (16-61); Albumin, Serum 3.4 g/dL (3.2-5.0); Alkaline Phosphatase 67 U/L (45-117); Bilirubin, Direct 0.23 mg/dL (0.00-0.30); Cholesterol 153 mg/dL (200); Globulin 4.1 g/dL (2.2-4.2); High Density Lipoprotein 61 mg/dL; Protein, Total 7.5 g/dL (6.4-8.2); Triglycerides 150 mg/dL; Very Low Density Lipoprotein 30 mg/dL (5-40)
[2023-02-22 08:57] LABS: International Normalized Ratio 1.8; Prothrombin Time (Protime)PT. 20.8 SECONDS (11.7-14.9)
== END 2023-02-22 18:00 | disposition home or self-care (01) ==
LOC: LAB 08:16
PROVIDERS: Referring Provider Internal Medicine Cardiovascular Disease; Visit Provider Internal Medicine Cardiovascular Disease
DX: I48.11 Longstanding persistent atrial fibrillation (principal); Z79.01 Long term (current) use of anticoagulants
CPT/HCPCS: 36415; 80061; 80076; 85610

== ENCOUNTER 2023-03-07 10:54 | Outpatient (RCR) | payer MEDICARE, BC, SELFPAY ==
[2023-02-23 21:46] VITALS: BMI 33.5
[2023-03-07 11:28] LABS: International Normalized Ratio 2.6; Prothrombin Time (Protime)PT. 28.4 SECONDS (11.7-14.9)
== END 2023-03-26 18:00 | disposition home or self-care (01) ==
LOC: LAB 10:54
PROVIDERS: Referring Provider Internal Medicine Cardiovascular Disease; Visit Provider Internal Medicine Cardiovascular Disease
DX: I48.11 Longstanding persistent atrial fibrillation (principal); Z79.01 Long term (current) use of anticoagulants
CPT/HCPCS: 36415; 85610

== ENCOUNTER 2023-04-13 08:35 | Outpatient (RCR) | payer MEDICARE, BC, SELFPAY ==
[2023-03-27 00:27] VITALS: BMI 33.5
[2023-04-13 09:17] LABS: International Normalized Ratio 2.6; Prothrombin Time (Protime)PT. 27.9 SECONDS (11.7-14.9)
== END 2023-04-13 18:00 | disposition home or self-care (01) ==
LOC: LAB 08:35
PROVIDERS: Referring Provider Internal Medicine Cardiovascular Disease; Visit Provider Internal Medicine Cardiovascular Disease
DX: I48.11 Longstanding persistent atrial fibrillation (principal); Z79.01 Long term (current) use of anticoagulants
CPT/HCPCS: 36415; 85610

== ENCOUNTER 2023-05-30 11:37 | Outpatient (RCR) | payer MEDICARE, BC, SELFPAY ==
[2023-04-26 22:09] VITALS: BMI 33.5
[2023-05-30 12:31] LABS: International Normalized Ratio 2.3; Prothrombin Time (Protime)PT. 25.5 SECONDS (11.7-14.9)
== END 2023-05-30 18:00 | disposition home or self-care (01) ==
LOC: LAB 11:37
PROVIDERS: Referring Provider Internal Medicine Cardiovascular Disease; Visit Provider Internal Medicine Cardiovascular Disease
DX: I48.11 Longstanding persistent atrial fibrillation (principal); Z79.01 Long term (current) use of anticoagulants
CPT/HCPCS: 36415; 85610

== ENCOUNTER 2023-07-06 09:46 | Outpatient (RCR) | payer MEDICARE, BC, SELFPAY ==
[2023-06-26 23:23] VITALS: BMI 33.5
[2023-07-06 10:53] LABS: International Normalized Ratio 2.3; Prothrombin Time (Protime)PT. 25.2 SECONDS (11.7-14.9)
== END 2023-07-26 18:00 | disposition home or self-care (01) ==
LOC: LAB 09:46
PROVIDERS: Referring Provider Internal Medicine Cardiovascular Disease; Visit Provider Internal Medicine Cardiovascular Disease
DX: I48.11 Longstanding persistent atrial fibrillation (principal); Z79.01 Long term (current) use of anticoagulants
CPT/HCPCS: 36415; 85610

== ENCOUNTER 2023-08-06 09:55 | Outpatient (RCR) | payer MEDICARE, BC, SELFPAY ==
[2023-07-27 03:10] VITALS: BMI 33.5
[2023-08-06 10:39] LABS: Prothrombin Time (Protime)PT. 31.4 SECONDS (11.7-14.9)
[2023-08-06 11:18] LABS: AST(SGOT) 11 U/L (15-37); Alanine Aminotransfer ALT/SGPT 16 U/L (16-61); Albumin, Serum 3.3 g/dL (3.2-5.0); Alkaline Phosphatase 57 U/L (45-117); Bilirubin, Direct 0.16 mg/dL (0.00-0.30); Cholesterol 173 mg/dL (200); Globulin 4.3 g/dL (2.2-4.2); High Density Lipoprotein 55 mg/dL; Protein, Total 7.6 g/dL (6.4-8.2); Triglycerides 159 mg/dL; Very Low Density Lipoprotein 32 mg/dL (5-40)
== END 2023-08-26 18:00 | disposition home or self-care (01) ==
LOC: LAB 09:55
PROVIDERS: Referring Provider Internal Medicine Cardiovascular Disease; Visit Provider Internal Medicine Cardiovascular Disease
DX: I48.11 Longstanding persistent atrial fibrillation (principal); Z79.01 Long term (current) use of anticoagulants; E78.00 Pure hypercholesterolemia, unspecified
CPT/HCPCS: 36415; 80061; 80076; 85610

== ENCOUNTER 2023-09-04 12:40 | Outpatient (RCR) | payer MEDICARE, BC, SELFPAY ==
[2023-08-26 20:59] VITALS: BMI 33.5
[2023-09-04 13:44] LABS: International Normalized Ratio 2.3; Prothrombin Time (Protime)PT. 25.4 SECONDS (11.7-14.9)
== END 2023-09-04 18:00 | disposition home or self-care (01) ==
LOC: LAB 12:40
PROVIDERS: Referring Provider Internal Medicine Cardiovascular Disease; Visit Provider Internal Medicine Cardiovascular Disease
DX: I48.11 Longstanding persistent atrial fibrillation (principal); Z79.01 Long term (current) use of anticoagulants
CPT/HCPCS: 36415; 85610

== ENCOUNTER 2023-10-17 10:40 | Outpatient (RCR) | payer MEDICARE, BC, SELFPAY ==
[2023-09-26 21:49] VITALS: BMI 33.5
[2023-10-17 11:06] LABS: International Normalized Ratio 2.6; Prothrombin Time (Protime)PT. 28.4 SECONDS (11.7-14.9)
== END 2023-10-25 18:00 | disposition home or self-care (01) ==
LOC: LAB 10:40
PROVIDERS: Referring Provider Internal Medicine Cardiovascular Disease; Visit Provider Internal Medicine Cardiovascular Disease
DX: I48.11 Longstanding persistent atrial fibrillation (principal); Z79.01 Long term (current) use of anticoagulants
CPT/HCPCS: 36415; 85610

== ENCOUNTER 2023-12-10 08:49 | Outpatient (RCR) | payer MEDICARE, BC, SELFPAY ==
[2023-10-25 22:25] VITALS: BMI 33.5
[2023-12-03 10:01] LABS: International Normalized Ratio 3.3
[2023-12-10 09:21] LABS: International Normalized Ratio 2.5; Prothrombin Time (Protime)PT. 26.5 SECONDS (11.7-14.9)
== END 2023-12-25 22:40 | disposition home or self-care (01) ==
LOC: LAB 08:49
PROVIDERS: Referring Provider Internal Medicine Cardiovascular Disease; Visit Provider Internal Medicine Cardiovascular Disease
DX: I48.11 Longstanding persistent atrial fibrillation (principal); Z79.01 Long term (current) use of anticoagulants
CPT/HCPCS: 36415; 85610

== ENCOUNTER 2024-01-25 10:01 | Outpatient (RCR) | payer MEDICARE, BC, SELFPAY ==
[2023-12-25 22:41] VITALS: BMI 33.5
[2024-01-18 10:47] LABS: International Normalized Ratio 3.5; Prothrombin Time (Protime)PT. 34.7 SECONDS (11.7-14.9)
[2024-01-25 11:42] LABS: International Normalized Ratio 3.8; Prothrombin Time (Protime)PT. 37.4 SECONDS (11.7-14.9)
== END 2024-01-25 18:00 | disposition home or self-care (01) ==
LOC: LAB 10:01
PROVIDERS: Referring Provider Internal Medicine Cardiovascular Disease; Visit Provider Internal Medicine Cardiovascular Disease
DX: I48.11 Longstanding persistent atrial fibrillation (principal); Z79.01 Long term (current) use of anticoagulants
CPT/HCPCS: 36415; 85610

== ENCOUNTER 2024-02-21 09:47 | Outpatient (RCR) | payer MEDICARE, BC, SELFPAY ==
[2024-01-28 09:18] VITALS: BMI 33.5
[2024-01-29 11:47] LABS: International Normalized Ratio 1.9; Prothrombin Time (Protime)PT. 21.4 SECONDS (11.7-14.9)
[2024-02-12 08:09] LABS: International Normalized Ratio 1.5; Prothrombin Time (Protime)PT. 17.6 SECONDS (11.7-14.9)
[2024-02-12 08:17] LABS: AST(SGOT) 12 U/L (15-37); Alanine Aminotransfer ALT/SGPT 16 U/L (16-61); Albumin, Serum 3.3 g/dL (3.2-5.0); Alkaline Phosphatase 56 U/L (45-117); Bilirubin, Direct 0.23 mg/dL (0.00-0.30); Cholesterol 169 mg/dL (200); High Density Lipoprotein 54 mg/dL; Protein, Total 7.3 g/dL (6.4-8.2); Triglycerides 191 mg/dL; Very Low Density Lipoprotein 38 mg/dL (5-40)
[2024-02-21 10:43] LABS: International Normalized Ratio 1.4; Prothrombin Time (Protime)PT. 17.3 SECONDS (11.7-14.9)
== END 2024-02-21 18:00 | disposition home or self-care (01) ==
LOC: LAB 09:47
PROVIDERS: Nurse Practitioner Gerontology; Referring Provider Internal Medicine Cardiovascular Disease; Visit Provider Internal Medicine Cardiovascular Disease
DX: I48.11 Longstanding persistent atrial fibrillation (principal); Z79.01 Long term (current) use of anticoagulants; E78.00 Pure hypercholesterolemia, unspecified
CPT/HCPCS: 36415; 80061; 80076; 85610

== ENCOUNTER 2024-02-27 09:39 | Outpatient (RCR) | payer MEDICARE, BC, SELFPAY ==
[2024-02-24 22:14] VITALS: BMI 33.5
[2024-02-27 10:35] LABS: International Normalized Ratio 1.8; Prothrombin Time (Protime)PT. 20.7 SECONDS (11.7-14.9)
== END 2024-03-26 18:00 | disposition home or self-care (01) ==
LOC: LAB 09:39
PROVIDERS: Referring Provider Internal Medicine Cardiovascular Disease; Visit Provider Internal Medicine Cardiovascular Disease
DX: I48.11 Longstanding persistent atrial fibrillation (principal); Z79.01 Long term (current) use of anticoagulants
CPT/HCPCS: 36415; 85610

== ENCOUNTER 2024-03-05 07:47 | Emergency (ER) | payer MEDICARE, BC, SELFPAY ==
[2024-03-05 07:47] VITALS: BP 137/84; PULSE 61; RESP 16; TEMP 36.1; O2SAT 97
--- NOTE | 2024-03-05 08:01 | EDS_ITS ---
HPI History of Present Illness Chief Complaint: Fall Narrative Narrative: 78-year-old male presenting with right knee, ankle, foot pain. Patient states that he has had sciatica for several months. He is on gabapentin for this. He states at times it he has fallen secondary to pain. Yesterday he states that he was try to get in the car and lost his footing and rolled his right ankle and has pain in the ankle, foot, knee on the right. He states he believes his leg was trapped behind him. Patient states he is on Coumadin for history of A-fib. He denies hitting his head or any loss of conscious. He has no other injuries. Patient states that he had been able to bear weight at home but minimally. He did ice his leg yesterday. [facility] Medical History Obesity Longstanding persistent atrial fibrillation Kidney stones Osteoarthritis Polycythemia Macular degeneration Obstructive sleep apnea Colon cancer Essential (primary) hypertension Edema Left atrial enlargement Diastolic dysfunction HLD (hyperlipidemia) Home Medications ?Medication ?Instructions ?Recorded ?Last Taken ?Type metoprolol tartrate 100 mg tablet 100 mg PO BID BP 07/22/13 10/25/17 07:00 History nifedipine 60 mg tablet,extended 60 mg PO DAILY BP 07/22/13 10/25/17 07:00 History release simvastatin 20 mg tablet 20 mg PO QHS CHOLESTEROL 07/22/13 10/24/17 20:00 History vitamins A,C,N-llgk-kdwllr 4,296 1 ea PO BID EYE VITAMIN 10/19/17 Unknown History mcg-226 mg-90 mg capsule psyllium husk 3.4 gram/5.4 gram 1 tbsp PO DAILY 01/22/20 Unknown History oral powder (Metamucil) omeprazole 20 mg capsule,delayed 40 mg PO DAILY 30 days #60 caps 02/10/22 Unknown History release warfarin 4 mg tablet 4 mg PO DAILY BLOOD THINNER #90 01/16/24 Unknown Rx tabs gabapentin 600 mg tablet 600 mg PO TID 02/27/24 Unknown History Allergy/AdvReac Type Severity Reaction Status Date / Time aliskiren (From [employer]) AdvReac Severe Unknown Verified 03/05/24 07:50 hydrochlorothiazide AdvReac Severe Unknown Verified 03/05/24 07:50 Family History Father CAD (coronary artery disease) CVA (cerebral vascular accident) Hypertension Mother Breast cancer Surgical History H/O hemicolectomy (10/2017) History of total knee arthroplasty Social History Smoking Status: Former smoker alcohol intake: never substance use type: does not use caffeine: Yes Type: carbonated beverages Number of servings: 1 what type of physical activity do you participate in: none ROS ROS ED Constitutional Constitutional ED: Denies chills, fever(s) or sweats Eyes Eyes: Denies blurry vision or change in vision ENT ENT ED: Denies ear pain or sore throat Cardiovascular Cardiovascular: Denies chest pain, palpitations or racing heartbeat Respiratory/Chest Respiratory/Chest: Denies cough, dyspnea or sputum Gastrointestinal Gastrointestinal: Denies abdominal pain, constipation, diarrhea, nausea or vomiting Genitourinary Genitourinary ED: Denies dysuria, hematuria or urinary frequency Musculoskeletal Musculoskeletal: Reports other Details: Right knee, ankle, foot ; Denies arthralgias, myalgias or neck pain Integumentary Denies abscess, Abrasions or rash Neurologic Neurologic: Denies headache(s), paresthesias or weakness Psychiatric Psychiatric: Denies anxiety, depression, suicidal ideation or suicidal thoughts Endocrine Endocrinology: Denies polydipsia or polyuria EXAM Physical Exam Const Vital Signs: 03/05/24 07:47 03/05/24 07:47 Temperature 97 F L Temperature Source Temporal Pulse Rate 61 Respiratory Rate 16 Respiratory Effort Normal Respiratory Depth Normal Respiratory Pattern Normal Blood Pressure 137/84 H Blood Pressure Mean 101 Pulse Ox 97 Oxygen Delivery Method Room Air Room Air Positive well nourished General Appearance ED: NAD HEENT Reports moist mucous membranes Resp normal respiratory effort Cardio regular rate and regular rhythm Extremity Extremity Narrative: Right knee: No patellar tenderness to palpation. No ecchymosis or deformity. No ligamentous laxity. Extensor mechanism is intact. Right ankle: Tenderness to palpation over the medial and lateral malleoli. No obvious deformity. There is some swelling in this region. Right foot: No tenderness to palpation at the base of the fifth metatarsal. There is some tenderness over the navicular. Neurovascular intact brisk cap refill all 5 toes. Neuro oriented x3 Sensorium / Orientation: alert Motor Exam: strength 5/5 throughout Psych mental status grossly normal MDM MDM MDM Narrative Medical decision making narrative: Patient presenting with right knee, ankle, foot pain. Patient is offered analgesia but states he is wants to be checked out. Differential includes knee strain, ankle sprain, ankle fracture, foot strain, foot fracture. X-rays of the right knee, ankle, foot will be obtained. 4 views of the right knee interpreted by myself shows no acute fractures subluxation. 3 views of the right ankle interpreted by myself shows no acute fracture dislocation. 3 views of the right foot interpreted by myself shows no acute fractures or subluxations. Radiologist interprets these and agrees. Patient placed in [place] wrap and Aircast. Recommended ice, elevation. He does not want any narcotic pain medication. Discharged in stable condition. Impression: 1. Fall 2. Right knee strain 3. Right ankle sprain 4. Right foot strain Lab Data Attestation: I reviewed the patient's lab results. Radiography Diagnostic Testing: Clinical Impression(s) from Imaging Studies Ankle X-Ray 03/05/24 08:05 IMPRESSION: No acute fracture or dislocation identified in the right ankle. Electronically Signed: Carolina Bee MD at 8:22 EDT , Foot X-Ray 03/05/24 08:05 IMPRESSION: No acute fracture or dislocation identified in the right foot. Electronically Signed: Carolina Bee MD at 8:24 EDT , Knee X-Ray 03/05/24 08:05 IMPRESSION: No acute fracture or dislocation identified in the right knee. Mild osteoarthritis with mild joint effusion. Electronically Signed: Carolina Bee MD at 8:29 EDT , Discharge Plan Triage Chief Complaint: Fall ED Provider: Tyshawn Katz Dx/Rx/DC Orders Instructions: ED Ankle Sprain (Adult) Prescriptions: No Action omeprazole 20 mg capsule,delayed release(DR/EC) 40 mg PO DAILY 30 Days Qty: 60 Metamucil 3.4 gram/5.4 gram powder 1 tbsp PO DAILY Rx Instructions: mix into at least 8 oz of water or juice before administering metoprolol tartrate 100 MG tablet 100 mg PO BID Patient Comments: blood pressure simvastatin 20 MG tablet 20 mg PO QHS Patient Comments: cholesterol nifedipine 60 MG tablet extended release 60 mg PO DAILY Patient Comments: blood pressure vitamins A,C,I-bbvv-tjcefj 1 EACH capsule 1 ea PO BID warfarin 4 mg tablet 4 mg PO DAILY Qty: 90 4RF Protocol: Dose Management Condition: Sunday Dose/Route: 4 mg Instruction: 1 x 4 mg tablet Condition: Sunday Dose/Route: 2 mg Instruction: 0.5 x 4 mg tablets Condition: Sunday Dose/Route: 4 mg Instruction: 1 x 4 mg tablet Condition: Sunday Dose/Route: 4 mg Instruction: 1 x 4 mg tablet Condition: Dose/Route: 4 mg Instruction: 1 x 4 mg tablet Condition: Sunday Dose/Route: 4 mg Instruction: 1 x 4 mg tablet Condition: Sunday Dose/Route: 4 mg Instruction: 1 x 4 mg tablet Protocol Text: Adjustment Start Date: Sunday02/27/24 INR Value: 1.8 INR Date: 02/27/24 Recheck Date: 03/12/24 gabapentin 600 mg tablet 600 mg PO TID Primary Care Provider: Zulema Campbell Referrals: Zulema Campbell, [Primary Care Provider] - Print Language: Paraguayan Disposition Disposition: Home, Self Care
--- NOTE | 2024-03-05 08:05 | RAD_ITS ---
HISTORY: pain. TECHNIQUE: XR Foot Min 3 Views. COMPARISON: None. FINDINGS: BONES : No acute fracture identified. Calcaneal enthesopathy present. JOINTS: No dislocation. Mild degenerative change. Joint effusion of the ankle. SOFT TISSUES: Soft tissue swelling of the ankle and foot. Peripheral vascular disease. RAD/Foot min 3 Views IMPRESSION: No acute fracture or dislocation identified in the right foot. Electronically Signed: Carolina Bee MD at 8:24 EDT ,
--- NOTE | 2024-03-05 08:05 | RAD_ITS ---
HISTORY: pain. TECHNIQUE: XR Ankle Min 3 Views. COMPARISON: None. FINDINGS: BONES : No acute fracture identified. Plantar calcaneal spur present. JOINTS: No dislocation. Mild degenerative change. Joint effusion is noted. SOFT TISSUES: Severe surrounding soft tissue swelling. Peripheral vascular disease. RAD/Ankle min 3 Views IMPRESSION: No acute fracture or dislocation identified in the right ankle. Electronically Signed: Carolina Bee MD at 8:22 EDT ,
--- NOTE | 2024-03-05 08:05 | RAD_ITS ---
HISTORY: pain. TECHNIQUE: XR Knee Complete 4 Views or More. COMPARISON: None. FINDINGS: BONES : No acute fracture identified. Mineralization unremarkable. JOINTS: No dislocation. Mild joint space narrowing with degenerative tricompartmental osteophytes. Mild joint effusion. SOFT TISSUES: Mild soft tissue swelling. RAD/Knee 4 or More Views IMPRESSION: No acute fracture or dislocation identified in the right knee. Mild osteoarthritis with mild joint effusion. Electronically Signed: Carolina Bee MD at 8:29 EDT ,
[2024-03-05 09:00] VITALS: BP 132/76; PULSE 64; RESP 16; TEMP 36.6; O2SAT 99
== END 2024-03-05 09:15 | disposition home or self-care (01) ==
PROVIDERS: Emergency Provider Student in an Organized Health Care Education/Training Program; Visit Provider Student in an Organized Health Care Education/Training Program
DX: S93.401A Sprain of unspecified ligament of right ankle, initial encounter (principal); I48.91 Unspecified atrial fibrillation; E78.5 Hyperlipidemia, unspecified; S96.911A Strain of unspecified muscle and tendon at ankle and foot level, right foot, initial encounter; I10 Essential (primary) hypertension; S83.91XA Sprain of unspecified site of right knee, initial encounter; Z87.891 Personal history of nicotine dependence; Z79.01 Long term (current) use of anticoagulants; W19.XXXA Unspecified fall, initial encounter
CPT/HCPCS: 73564; 73610; 73630; 99283

== ENCOUNTER 2024-04-25 17:37 | Inpatient (IN) | payer MEDICARE, BC, SELFPAY ==
[2024-04-25 18:02] VITALS: BP 124/78; PULSE 56; RESP 16; TEMP 36.5; O2SAT 95; BMI 32.0
[2024-04-25 20:18] VITALS: BMI 31.9
[2024-04-25 20:45] VITALS: PULSE 67
[2024-04-25] MEDS: Atorvastatin Calcium 10 MG Tablet PO (20:47)
[2024-04-25] MEDS: Senna/Docusate Sodium 1 Tablet 2 TABLET PO (20:47)
[2024-04-25 22:00] VITALS: PULSE 59; RESP 16; O2SAT 95
[2024-04-26 05:09] VITALS: BP 125/67; PULSE 74; RESP 15; TEMP 36.5; O2SAT 93
[2024-04-26 05:14] LABS: Absolute Lymphocyte Count 1.55 X10^3/uL (0.83-4.51); Absolute Neutrophil Count 2.8 X10^3/uL (2.0-7.7); Basophil# 0.06 X10^3/uL; Basophil% 1.2 % (0-1); Eosinophil# 0.16 X10^3/uL; Eosinophils% 3.1 % (0-5); Hematocrit 39.9 % (40-54); Hemoglobin 13.1 g/dL (13.0-16.5); Lymphocyte # 1.55 X10^3/ul (0.83-4.51); Lymphocyte % 30.1 % (19-41); Mean Corp Hgb Conc 32.8 g/dL (32-36); Mean Corpuscular Hgb 29.7 pg (27.0-32.0); Mean Corpuscular Volume 90.5 fL (80-94); Mean Platelet Vol. 9.4 fl (6.2-12.0); Monocyte# 0.54 X10^3/uL; Monocyte% 10.5 % (0-10); NRBC Flagged by Analyzer 0 % (0-5); Neutrophil # 2.81 X10^3/uL (2.7-7.7); Neutrophil % 54.5 % (47-70); Platelet Count 300 K/mm3 (150-450); RBC Distribution Width CV 15.4 % (11.6-14.6); RBC Distribution Width SD 51.5 fl (35.1-43.9); Red Blood Count 4.41 M/mm3 (4.6-6.2); White Blood Count 5.2 K/mm3 (4.4-11.0)
[2024-04-26 05:45] LABS: ALB/GLOB Ratio 0.6 RATIO (0.9-2.4); AST(SGOT) 14 U/L (15-37); Alanine Aminotransfer ALT/SGPT 8 U/L (16-61); Albumin, Serum 2.5 g/dL (3.2-5.0); Alkaline Phosphatase 56 U/L (45-117); Anion Gap 6 (5-15); BUN 15 mg/dL (7-18); BUN/Creat Ratio 21.4 RATIO (10-20); Calcium,Total 8.8 mg/dL (8.5-10.1); Chloride 103 mmol/L (98-107); EST Glomerular Filtration Rate 116 mL/min (>60); Est Glom Filt Rate - Afr Amer 140 mL/min (>60); Estimated Creatinine Clearance 92.23 ml/min; Glucose 102 mg/dL (74-106); Phosphorus 3.1 mg/dL (2.5-4.9); Potassium 3.8 mmol/L (3.5-5.1); Protein, Total 6.5 g/dL (6.4-8.2); Sodium Level 138 mmol/L (136-145)
[2024-04-26 08:43] VITALS: PULSE 74
[2024-04-26] MEDS: NIFEdipine 60 MG Tablet PO (08:43)
[2024-04-26] MEDS: Metoprolol Tartrate 100 MG Tablet PO ×2 (08:43→20:46)
[2024-04-26] MEDS: Multivitamin (Healthy Eyes) Capsule 1 CAP PO (08:43)
[2024-04-26] MEDS: Pantoprazole Sodium 20 MG Tablet PO (08:44)
[2024-04-26] MEDS: Magnesium Chloride 64 MG Delay Rel.Tablet 128 MG PO (08:44)
[2024-04-26] MEDS: Psyllium 1 PACKET PO (08:44)
[2024-04-26] MEDS: Senna/Docusate Sodium 1 Tablet 2 TABLET PO (08:44)
[2024-04-26 09:33] VITALS: PULSE 74; RESP 14; O2SAT 96
[2024-04-26 09:55] LABS: International Normalized Ratio 2.5; Prothrombin Time (Protime)PT. 26.6 SECONDS (11.7-14.9)
--- NOTE | 2024-04-26 10:01 | PCM.HP.STD ---
[facility] - General General Date of Admission: 04/25/24 Date of Service: 04/26/24 Chief Complaint: L knee pain due to a fall with hemarthrosis. 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 Plain XRAY showed OA with a small joint effusion. He had soft tissue swelling of the R ankle and foot and was diagnosed with knee and ankle sprain. He was referred for PT. He was doing much better and PT had advanced him to a cane. This past 04/22/2024, while working with [facility] PT, he was doing 2 steps in the garage with a cane and his left leg would not support him buckled.PT caught him and lowered to the ground so he did not fall. He has had a L TKA in the past. Plain x-ray of the left knee showed a joint effusion with no fracture or displacement of the prosthesis. He was unable to ambulate and was requiring moderate to max assist with bed mobility and max assist of 2 with sitting to standing. He was admitted to [facility] for pain control. the morning after admission nursing/therapy had to use a Nithya lift to get him out of bed. He was seen in consult by orthopedics who felt he had a hemarthrosis. The knee was not aspirated because the pt was therapeutic on Coumadin and the risk seemed to outweigh the benefit. His was not safe to go home. He was transferred to the acute inpt rehab unit on 04/25/24 for 3 hours of therapy daily to restore function/independence at or near his level prior to the injury to the left knee on 04/22/24. Prior to 04/22/24 he was ambulating with a FWW or a cane and he was independent with his ADL's. He lives at home with his . Krish tells me taht after the fall in February he began having sciatic pain in the R leg. He was prescribed Gabapentin 600 mg TID by his PCP but, he took only 1 dose and discontinued after that due to adverse side effects.......it made him crazy. Afebrile VSS -blood pressure is well-controlled and at goal. Heart rate is ranged from 56-74 since admission to rehab. Maintaining appropriate oxygen saturation on RA Oral intake - FOOD good FLUIDS adequate He has had 1 postvoid residual and it was 62. Discussed with nursing - no problems that need addressed. slept fair last night. C/O uncontrolled pain. Did not come to us on anything for pain? Reviewed the THERAPY notes Medication list reviewed. All lab drawn this morning was personally reviewed. CBC is unremarkable. INR is 2.5 today. Creatinine is 0.7 with a GFR of 116. Magnesium and phosphorus are normal. LFTs are unremarkable. Since he fell in February he has started having burning pain and paresthesias in the R leg. He thought he might have sciatica. He went to [facility] and can not tell me who he saw but, he thought it was a spine doctor. He says he had plain XRAYS of his back and was told he had arthritis and a spinal stimulator was recommended which he did not want at that time. Has not had nerve conduction studies. The burning pain is in the R buttock and extends from the R lateral hip area to the R foot. He c/o pain in the R Achilles and also in the R lateral and medial calf. He also has tingling in these areas. Prior to the fall in February he denies ever having this pain before. Pain increases at night. Denies bowel or bladder problems. [facility] Medical History (Updated 04/26/24 @ 12:[address] Rubina Chaidez, DO) Concentric left ventricular hypertrophy GERD (gastroesophageal reflux disease) Hypomagnesemia Diverticulosis Venous insufficiency Hematoma of right lower extremity Biatrial enlargement Obesity Longstanding persistent atrial fibrillation Kidney stones Osteoarthritis Polycythemia Macular degeneration Obstructive sleep apnea Colon cancer Essential (primary) hypertension Left atrial enlargement Diastolic dysfunction HLD (hyperlipidemia) Home Medications ?Medication ?Instructions ?Recorded ?Last Taken ?Type metoprolol tartrate 100 mg tablet 100 mg PO BID BP 07/22/13 04/25/24 15:30 History nifedipine 60 mg tablet,extended 60 mg PO DAILY BP 07/22/13 04/25/24 History release simvastatin 20 mg tablet 20 mg PO QHS CHOLESTEROL 07/22/13 04/24/24 21:20 History vitamins A,C,X-fiev-rfdzgs 4,296 1 ea PO BID EYE VITAMIN 10/19/17 Unknown History mcg-226 mg-90 mg capsule psyllium husk 3.4 gram/5.4 gram 1 tbsp PO DAILY Bowels 01/22/20 04/25/24 History oral powder (Metamucil) omeprazole 20 mg capsule,delayed 20 mg PO DAILY GERD 30 days #60 02/10/22 Unknown History release caps warfarin 4 mg tablet 4 mg PO DAILY BLOOD THINNER #90 01/16/24 04/25/24 15:25 Rx tabs magnesium chloride 64 mg 128 mg PO DAILY supplement 04/25/24 Unknown History (magnesium chloride) tablet vit A 7,160 unit-vit C 113 mg-vit tab PO DAILY supplement 04/25/24 04/25/24 15:25 History E 100 tiax-nuoc-qohblm tablet (EyeProtect) warfarin 2 mg tablet (Jantoven) 2 mg PO DAILY blood thinner 04/25/24 04/23/24 History Allergy/AdvReac Type Severity Reaction Status Date / Time [facility]iskiren ([facility]) AdvReac Severe Unknown Verified 03/05/24 07:50 hydrochlorothiazide AdvReac Severe Unknown Verified 03/05/24 07:50 Family History Father CAD (coronary artery disease) CVA (cerebral vascular accident) Hypertension Mother Breast cancer Surgical History H/O hemicolectomy (10/2017) History of total knee arthroplasty Social History (Updated 04/26/24 @ 12:[address] Rubina Chaidez DO) household members: significant other Smoking Status: Former smoker how long ago did patient quit smoking: He tells me he quit 25 years ago which would have made him 53. alcohol intake: never substance use type: does not use caffeine: Yes Type: carbonated beverages Number of servings: 1 what type of physical activity do you participate in: none ROS Constitutional Constitutional: Denies anorexia, change in weight, chills, fatigue, fever(s), headache(s), night sweats, poor appetite or weakness Eyes Eyes: Denies change in vision, eye pain or loss of vision ENT HEENT: Denies abnormal hearing, dysphagia, headache(s), hearing loss, nasal congestion or sore throat Cardiovascular Cardiovascular: Reports edema and weakness in extremities; Denies chest pain, dyspnea on exertion, lightheadedness, orthopnea, palpitations, paroxysmal nocturnal dyspnea or syncope Respiratory/Chest Respiratory/Chest: Denies cough, dyspnea, shortness of breath at rest, shortness of breath with exertion or wheezing Gastrointestinal Gastrointestinal: Reports constipation; Denies abdominal pain, diarrhea, dyspepsia, hematemesis, hematochezia, nausea or vomiting Genitourinary Genitourinary: Denies dysuria, hematuria, nocturia, urinary frequency, urinary hesitancy, urinary incontinence or urinary urgency Musculoskeletal Musculoskeletal: Reports abnormal gait, back pain, joint pain, joint swelling, limited range of motion, radiating pain into limb, tingling and other Details: Paresthesias right lower extremity ; Denies neck pain Integumentary Integumentary: Denies hirsutism, jaundice, non-healing lesions or rash Neurologic Neurologic: Reports focal weakness and paresthesias; Denies confusion, disequilibrium, dizziness, headache(s), seizures, tremor(s) or vertigo Psychiatric Psychiatric: Reports other Details: Complains of being anxious recently due to medical condition. ; Denies anxiety, depression, homicidal ideation or suicidal ideation Endocrine Endocrinology: Denies change in body appearance, polydipsia or polyuria Hematologic/Lymphatic Hematologic/Lymphatic: Reports easy bleeding and easy bruising; Denies lymphadenopathy Allergic/Immunologic Allergic/Immunologic: Denies rhinitis, eczemia or asthma Vital Signs Vital Signs Vital Signs: 04/25/24 18:02 04/25/24 20:45 04/25/24 22:00 Temperature 97.7 F L Temperature Source Temporal Pulse Rate 56 L 67 59 L Respiratory Rate 16 16 Respiratory Effort Normal Non-Labored Respiratory Depth Normal Respiratory Pattern Normal Blood Pressure 124/78 H Blood Pressure Mean 93 Blood Pressure Source Monitor Blood Pressure Position Sitting Blood Pressure Location Left Arm Pulse Ox 95 95 Oxygen Delivery Method Room Air Room Air 04/26/24 05:09 04/26/24 08:43 04/26/24 09:33 Temperature 97.7 F L Temperature Source Temporal Pulse Rate 74 74 74 Respiratory Rate 15 14 Respiratory Effort Normal Non-Labored Respiratory Depth Normal Respiratory Pattern Normal Blood Pressure 125/67 H Blood Pressure Mean 86 Blood Pressure Source Monitor Blood Pressure Position Semi-Fowlers Blood Pressure Location Left Arm Pulse Ox 93 96 Oxygen Delivery Method Room Air Room Air Weight Weight: 223 lb 5.252 oz Body Mass Index (BMI) 31.9 Physical Exam Const alert, oriented x3, no apparent distress and healthy appearing General Appearance: cooperative, well kempt and well developed Nutritional Appearance: obese other (BMI is 32) HEENT normocephalic and head/scalp atraumatic HEENT Narrative: Very dry mucous membranes. Tongue protrudes on the midline. No evidence of thrush. Eyes PERRL, EOMs intact bilaterally, conjunctivae normal and no scleral icterus Eyes Narrative: No discharge from the eyes and no mattering of the eyelashes. General Eye: normal appearance of both eyes Neck supple, No nodes and no carotid bruits General: trachea midline Chest inspection of chest normal Chest: symmetrical chest wall rise Resp normal respiratory effort, normal air movement and clear to auscultation bilaterally Effort and Inspection: able to speak in complete sentences Cardio S1 normal heart sound, S2 normal heart sound, no murmurs, no rub and no gallops Cardio Narrative: Irregular irregular with controlled ventricular response. GI normal to inspection, nondistended, normoactive bowel sounds, soft to palpation, non-tender and no bruits GI Narrative: No guarding with palpation. Denies constipation. no CVA tenderness Back/Spine Back/Spine Narrative: Pain in the right lower back and the right buttock. The pain radiates from the right buttock around to the right lateral hip area and then into the right lateral thigh, medial and lateral calf and into the foot. Complaining of pain in the Achilles area. He has right foot drop. He has weakness of the right lower extremity and cannot lift his leg off the bed. He is able to flex his knee. He has positive straight leg raising on the right. Sensation was intact to pinprick bilaterally. Extremity Extremity Narrative: Pitting edema in both lower extremities. Bilateral knee effusions left greater than right. No bruising of either lower extremity. No increased redness of the knee joints and no significant increased warmth to touch. Having difficulty flexing the left knee secondary to pain. He is able to lift the left lower extremity off the bed and hold it for, 5. Skin no wounds General Skin Exam: no breakdown Rashes: no rashes Neuro oriented x3 and CN's II-XII intact bilaterally Neuro Narrative: Weakness of the right lower extremity. Right foot drop. Positive straight leg raising on the right. Sensation was intact to pinprick on both lower extremities however he does complain of tingling in the right lower extremity and also burning pain. Psych mental status grossly normal, thought process normal, cooperative, affect normal and speech normal Appearance: grossly normal, appropriate and well kempt Attitude: calm Activity / Motor Behavior: appropriate eye contact Results Lab / Micro Data 04/26/24 04:20 04/26/24 04:20 Labs: Laboratory Results - last 24 hr 04/26/24 04:20: WBC 5.2, RBC 4.41 L, Hgb 13.1, Hct 39.9 L, MCV 90.5, MCH 29.7, MCHC 32.8, RDW Std Deviation 51.5 H, RDW Coeff of Naheed 15.4 H, Plt Count 300, MPV 9.4, Immature Gran % (Auto) 0.600, Neut % (Auto) 54.5, Lymph % (Auto) 30.1, Jones % (Auto) 10.5 H, Eos % (Auto) 3.1, Baso % (Auto) 1.2 H, Absolute Neuts (auto) 2.8, Absolute Lymphs (auto) 1.55, Nucleated RBC % 0, Sodium 138, Potassium 3.8, Chloride 103, Carbon Dioxide 29.0, Anion Gap 6, BUN 15, Creatinine 0.70, Estim Creat Clear Calc 92.23, Est GFR (MDRD) Af Amer 140, Est GFR (MDRD) Non-Af 116, BUN/Creatinine Ratio 21.4 H, Glucose 102, Calcium 8.8, Phosphorus 3.1, Magnesium 2.0, Total Bilirubin 0.60, AST 14 L, ALT 8 L, Alkaline Phosphatase 56, Total Protein 6.5, Albumin 2.5 L, Globulin 4.0, Albumin/Globulin Ratio 0.6 L 04/26/24 09:37: PT 26.6 H, INR 2.5 Assessment & Plan Assessment/Plan (1) Debility: (2) Traumatic arthropathy, left knee: (3) Hemarthrosis, left knee: (4) Radiculopathy: QUALIFIERS: Spinal region: lumbar Qualified Code(s): M54.16 - Radiculopathy, lumbar region (5) Right foot drop: (6) Right leg weakness: (7) Myelopathy: (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 DVT prophylaxis-continue warfarin for now. Patient has no history of valvular heart disease show may be a candidate for Eliquis or Xarelto. Will check with his insurance to see if they will cover 1 of these medications. Follow up with Dr. Campbell, orthopedic spine surgeon, pain management following DC from [facility] AM lab including CMP, CBC, Mag and Phos - personally reviewed. Get a HGBA1C since we are starting Prednisone. Start prednisone taper over the next 9 days. Tramadol 50 mg with breakfast and at HS and then Q6H PRN pain 4-10 Arthritis cream to the R low back Needs to have an MRI of the LS spine post DC from rehab to evaluate for cord compression, foraminal stenosis causing radiculopathy/neuropathy/myelopathy of the RLE If pain is not better controlled with the steroid burst and addition of Tramadol to the drug regimen will add Gabapentin 100 mg BID, AM and HS Will need an AFO for the R foot drop going forward. Until we can obtain an AFO will YVETTE wrap the leg into dorsiflexion with ambulation. Charges/Coding Visit Charges Inpatient E&M: 64441 Init Hosp L2
[2024-04-26] MEDS: Acetaminophen 500 MG Tablet 1000 MG PO ×2 (10:15→20:46)
[2024-04-26 10:35] LABS: Acetaminophen (Tylenol) Level < 2.0 ug/mL (10.0-30.0)
--- NOTE | 2024-04-26 12:47 | PCM.RU.PYE ---
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 Potential Problem List:: DVT, Bleeding, Infection, UTI, Aspiration, Falls, Skin Integrity and Depression Risk of Complications DVT: OSVALDO Hose ( OSVALDO hose or YVETTE wraps) and - (Continue warfarin) Bleeding: Monitor Lab Values, Nursing to Teach Precautions for anti-coagulation therapy., Wound, if applicable, to be assessed every shift. and Stroke patients assessed for lethargy or change in status. Infection: Clinical Staff to Monitor for S/S of infection: and S/S of infection include fever, redness, warmth, etc. Urinary Tract Infection: Monitor for frequency, burning, discomfort, or incontinence. and Nursing will obtain urine sample for urinalysis and C&S when ordered. Aspiration: Clinical staff will monitor for coughing, drooling, congestion., Speech will evaluate swallowing and dsyphasia. and Nursing will monitor patient swallowing during meals. Falls: Patient will be evaluated for Fall Precautions and Patient will be placed on Fall Precautions as indicated per protocol. Skin Breakdown: Nursing will assess skin daily using assessment tool. and Nursing will place on Skin Breakdown Precautions as indicated. Pain: Clinical staff will assess patient's pain level per protocol., Medications will be given, if needed, and the pain level reassessed. and Other methods: Massage, distraction, decrease stimulus, etc. used PRN. Plan of Care Patient requires physician specializing in physical medicine and rehab oversight to provide close medical supervision of rehab issues including: Pain Management, Sleep Problems, Bowel and Bladder, Medical and co-morbidity Management, DVT prophylaxis, Rehabilitation Leadership and Coordination of treatment team Patient needs Physical Therapy: For a minimum of 1 hour and At least 5 out of 7 days Patient needs Physical Therapy to improve:: Mobility, Strengthening, Transfers, Stretching, ROM, Endurance, Stairs, Gait and Balance Patient needs Occupational Therapy: For a minimum of 1 hour and At least 5 out of 7 days Patient needs Occupational Therapy to improve ADL's incl.: Eating, Grooming, Bathing, Dressing, Toileting, Toilet transfers, Community Reintegration, Higher functioning activities, Household tasks, Adaptive Equipment, Splinting and Other activities as determined Patient requires 24/7 Rehabilitation Nursing for: Pain Issues, Identifying and preventing risk factors, Monitoring and reporting current medical conditions, Assisting with ambulation, transfer, and all ADL's, Teaching patients about disease process and medications, Family teaching, Providing safe environment, Bowel and Bladder Issues, Skin integrity and Medication Management Patient needs Booster Plant Operator/ Case Management for: Discharge Planning, Arranging Home Equipment or Services and Family Interventions Patient needs Dietary and Nutrition Services for: Adequate Nutrition, Nutritional Supplements and Nutritional Education Goals Goals Patient will remain: free from falls Patient will perform eating at: MOD I level of assist. Patient will perform bed mobility at: MOD I level of assist. Patient will complete transfers from bed to chair at: MOD I level of assist. Patient will ambulate: - (150 feet with WW at PARKER) Patient will complete upper body dressing at: MOD I level of assist. Patient will complete lower body dressing at: MOD I level of assist. (With AE as needed. ) Patient will complete toilet transfer at: MOD I level of assist. Patient will complete toileting at: MOD I level of assist. Patient will perform bathing at: - (supervision with AE as needed for LB bathing. ) Patient will perform Tub/Shower transfer at: - (Supervision) Patient will complete grooming at: MOD I level of assist. (while standing at the sink) Patient will achieve: - (2 steps at SBA/CGA with 1 HR ) Patient will have pain level of: of 3 or less Patient's skin will: remain intact Patient will receive: adequate nutrition. Discharge Planning Pt Prognosis for Sig. Practical Improv. w/in Reasonable Time: Good Estimated Length of stay (days): 21 Anticipated D/C Destination: Home with Home Health Was Preadmission Assessment Accurate?: No
[2024-04-26 13:36] LABS: Hemoglobin A1c 5.1 % (3.8-5.6)
[2024-04-26] MEDS: Arthritis Pain Compound 60 CLICK TUBE TOPICAL ×2 (14:55→20:45)
[2024-04-26] MEDS: predniSONE 20 MG Tablet PO (14:55)
[2024-04-26] MEDS: Jantoven 2 MG Tablet PO (16:40)
[2024-04-26 17:45] VITALS: BP 126/83; PULSE 72; RESP 16; TEMP 36.7; O2SAT 95
[2024-04-26] MEDS: traMADol 50 MG Tablet PO (20:45)
[2024-04-26 20:46] VITALS: BP 110/72; PULSE 66
[2024-04-26] MEDS: Atorvastatin Calcium 10 MG Tablet PO (20:48)
[2024-04-27 06:00] VITALS: BP 135/91; PULSE 78; RESP 18; TEMP 36.6; O2SAT 97
[2024-04-27] MEDS: Arthritis Pain Compound 60 CLICK TUBE TOPICAL ×3 (06:04→21:12)
[2024-04-27] MEDS: Acetaminophen 500 MG Tablet 1000 MG PO ×3 (06:04→21:12)
[2024-04-27 06:31] LABS: International Normalized Ratio 2.2; Prothrombin Time (Protime)PT. 24.1 SECONDS (11.7-14.9)
[2024-04-27] MEDS: Multivitamin (Healthy Eyes) Capsule 1 CAP PO (08:05)
[2024-04-27] MEDS: Psyllium 1 PACKET PO (08:05)
[2024-04-27] MEDS: traMADol 50 MG Tablet PO ×2 (08:05→21:12)
[2024-04-27] MEDS: Magnesium Chloride 64 MG Delay Rel.Tablet 128 MG PO (08:05)
[2024-04-27 08:06] VITALS: PULSE 78
[2024-04-27] MEDS: NIFEdipine 60 MG Tablet PO (08:06)
[2024-04-27] MEDS: predniSONE 20 MG Tablet PO (08:06)
[2024-04-27] MEDS: Pantoprazole Sodium 20 MG Tablet PO (08:06)
[2024-04-27] MEDS: Metoprolol Tartrate 100 MG Tablet PO ×2 (08:06→21:13)
[2024-04-27] MEDS: Jantoven 2 MG Tablet PO (16:49)
[2024-04-27 17:27] VITALS: BP 109/76; PULSE 65; RESP 16; TEMP 36.4; O2SAT 65
[2024-04-27] MEDS: Atorvastatin Calcium 10 MG Tablet PO (21:12)
[2024-04-27 21:13] VITALS: BP 135/87; PULSE 69
[2024-04-28 05:57] VITALS: BP 137/84; PULSE 59; RESP 16; TEMP 36.4; O2SAT 97
[2024-04-28] MEDS: traMADol 50 MG Tablet PO ×2 (06:02→20:05)
[2024-04-28] MEDS: Acetaminophen 500 MG Tablet 1000 MG PO ×3 (06:02→22:10)
[2024-04-28] MEDS: Arthritis Pain Compound 60 CLICK TUBE TOPICAL ×3 (06:04→20:06)
[2024-04-28 07:15] LABS: International Normalized Ratio 2.2; Prothrombin Time (Protime)PT. 24.4 SECONDS (11.7-14.9)
[2024-04-28] MEDS: Magnesium Chloride 64 MG Delay Rel.Tablet 128 MG PO (08:10)
[2024-04-28] MEDS: Psyllium 1 PACKET PO (08:10)
[2024-04-28] MEDS: Pantoprazole Sodium 20 MG Tablet PO (08:10)
[2024-04-28] MEDS: predniSONE 20 MG Tablet PO (08:10)
[2024-04-28] MEDS: NIFEdipine 60 MG Tablet PO (08:10)
[2024-04-28 08:11] VITALS: BP 130/72; PULSE 70
[2024-04-28] MEDS: Metoprolol Tartrate 100 MG Tablet PO ×2 (08:11→20:07)
[2024-04-28] MEDS: Multivitamin (Healthy Eyes) Capsule 1 CAP PO (08:11)
[2024-04-28] MEDS: Jantoven 2 MG Tablet PO (17:00)
[2024-04-28 18:00] VITALS: BP 106/71; PULSE 69; RESP 17; TEMP 36.6; O2SAT 96
[2024-04-28 19:54] VITALS: BMI 31.8
[2024-04-28 20:05] VITALS: BP 108/74; PULSE 72
[2024-04-28] MEDS: Atorvastatin Calcium 10 MG Tablet PO (20:06)
[2024-04-28 20:07] VITALS: PULSE 72
[2024-04-28 22:00] VITALS: PULSE 69; RESP 16; O2SAT 95
[2024-04-29 06:00] VITALS: BP 142/83; PULSE 59; RESP 16; TEMP 36.8; O2SAT 96
[2024-04-29] MEDS: Arthritis Pain Compound 60 CLICK TUBE TOPICAL ×3 (06:53→20:38)
[2024-04-29] MEDS: Acetaminophen 500 MG Tablet 1000 MG PO ×3 (06:53→20:39)
[2024-04-29] MEDS: traMADol 50 MG Tablet PO ×2 (06:54→20:27)
[2024-04-29] MEDS: Magnesium Chloride 64 MG Delay Rel.Tablet 128 MG PO (08:09)
[2024-04-29 08:10] VITALS: PULSE 59
[2024-04-29] MEDS: Pantoprazole Sodium 20 MG Tablet PO (08:10)
[2024-04-29] MEDS: Metoprolol Tartrate 100 MG Tablet PO ×2 (08:10→20:39)
[2024-04-29] MEDS: predniSONE 20 MG Tablet PO (08:10)
[2024-04-29] MEDS: NIFEdipine 60 MG Tablet PO (08:10)
[2024-04-29] MEDS: Multivitamin (Healthy Eyes) Capsule 1 CAP PO (08:10)
[2024-04-29] MEDS: Psyllium 1 PACKET PO (08:10)
--- NOTE | 2024-04-29 15:34 | PCM.PROGNOTE ---
Subjective Subjective Afebrile VSS - Maintaining appropriate oxygen saturation on RA while awake. Has a hx of KAREN per review of EMR but, does not want to talk about it. He does snore and he has a thick neck and HTN and naps during the day. He is a male over the age of 50....STOP BANG is at least 5 putting him at high risk but, will defer to his wish not to think about it. Oral intake - FOOD good FLUIDS good Discussed with nursing - no problems that need addressed Reviewed the THERAPY notes - ST found the BCAT to be 48/50 which is normal but, he repeatedly asks me the same questions and does not remember what I have told him in the past. Medication list reviewed. INR was 2.2 and stable yesterday. Tells me that the pain in the Leg leg is much better. He has a little pain in the R buttock. Has not had to take any Tramadol in addition to the 50 mg scheduled in the AM and at HS. Has not mentioned tingling in the leg today. We have not received the results of the MRI or the notes from [facility] yet. No urinary retention. Occasional incontinence. Denies SOB, CP, palpitations, N/V/epigastric pain, calf pain. He was able to ambulate to and from the therapy room today at A with a FWW. He had good pace and a reciprocal pattern. No LOB. sleeping well at night. Objective Data Objective Data Vital Signs: Vital Signs Temp Pulse Resp BP Pulse Ox O2 Del Method 98.2 F 59 L 16 142/83 H 96 Room Air 04/29/24 06:00 04/29/24 08:10 04/29/24 06:00 04/29/24 06:00 04/29/24 06:00 04/29/24 06:00 Oxygen Delivery Method Room Air Weight: 222 lb 10.67 oz Body Mass Index (BMI) 31.8 Intake & Output: Intake and Output for Last 24 Hours 04/27/24 04/28/24 04/29/24 23:59 23:59 23:59 Intake Total 1910 / 1910 1250 / 1250 700 / 700 Output Total 1050 / 1050 1750 / 1750 1050 / 1050 Balance 860 / 860 -500 / -500 -350 / -350 Lab / Micro Data 04/26/24 04:20 04/26/24 04:20 Physical Exam Const alert, oriented x3 and no apparent distress Resp normal respiratory effort, normal air movement and clear to auscultation bilaterally Effort and Inspection: able to speak in complete sentences Cardio no murmurs and no gallops Cardio Narrative: Irregular irregular with controlled ventricular response. GI normal to inspection, nondistended, normoactive bowel sounds, soft to palpation and non-tender GI Narrative: No guarding with palpation. Denies constipation. Extremity Extremity Narrative: the ankle edema has resolved with the institution of Compression stockings. Still with effusion on the left knee but, no erythema, no openings in the skin. Better ROM today. Able to bear weight and walk with a FWW at a good pace at SBA. Skin no wounds General Skin Exam: no breakdown Rashes: no rashes Psych cooperative and affect normal Assessment & Plan Assessment/Plan (1) Debility: (2) Traumatic arthropathy, left knee: (3) Hemarthrosis, left knee: (4) Radiculopathy: QUALIFIERS: Spinal region: lumbar Qualified Code(s): M54.16 - Radiculopathy, lumbar region (5) Right foot drop: (6) Right leg weakness: (7) Myelopathy: (8) MCC (current) use of anticoagulants: (9) Venous insufficiency: PLAN: Plan 1. Continue therapy 2. Continue prednisone taper. Using tramadol 50 mg only twice daily at bedtime and in the morning prior to therapy. Ambulating at standby assist now with a front wheel walker. Pain in the right lower extremity is much improved but he still has a little residual in the right buttock area. Steroids are likely contributing significantly to pain relief. May benefit from an epidural as an outpatient but will have to have him off Coumadin which she has done in the past for procedures. 3. Awaiting the consult notes and MRI report from [facility] 4. Would like to avoid gabapentin if at all possible because he has had confusion and increased drowsiness with this medication in the past but it was at a significantly higher dose than I would start. Would consider possibly adding gabapentin 100 mg twice daily if the pain recurs as the steroids are tapered. 5. Will refer to pain management as an outpatient. 6. Would recommend he always use a front wheeled walker to ambulate in the future rather than a straight cane. Pain in the R leg is more radicular rather than limited to the knee. He has had no imaging of the R hip or knee at this institution. Charges/Coding Visit Charges Inpatient E&M: 52821 Subs Hosp L1
[2024-04-29] MEDS: Jantoven 2 MG Tablet PO (17:44)
[2024-04-29 18:00] VITALS: BP 109/74; PULSE 95; RESP 16; TEMP 36.7; O2SAT 97
[2024-04-29 20:39] VITALS: PULSE 62
[2024-04-29] MEDS: Atorvastatin Calcium 10 MG Tablet PO (20:39)
[2024-04-29 22:00] VITALS: PULSE 62; RESP 16; O2SAT 95
[2024-04-30] VITALS (7 sets, daily range): BP systolic 112–151; BP diastolic 68–95; PULSE 61–68; RESP 16; TEMP 36.6–36.8; O2SAT 94–97; BMI 32.1
[2024-04-30] MEDS: Arthritis Pain Compound 60 CLICK TUBE TOPICAL ×3 (06:58→20:35)
[2024-04-30] MEDS: traMADol 50 MG Tablet PO ×2 (06:59→20:28)
[2024-04-30] MEDS: Acetaminophen 500 MG Tablet 1000 MG PO ×3 (06:59→20:35)
[2024-04-30] MEDS: NIFEdipine 60 MG Tablet PO (08:29)
[2024-04-30] MEDS: Pantoprazole Sodium 20 MG Tablet PO (08:29)
[2024-04-30] MEDS: Psyllium 1 PACKET PO (08:29)
[2024-04-30] MEDS: Magnesium Chloride 64 MG Delay Rel.Tablet 128 MG PO (08:29)
[2024-04-30] MEDS: Multivitamin (Healthy Eyes) Capsule 1 CAP PO (08:30)
[2024-04-30] MEDS: predniSONE 20 MG Tablet PO (08:30)
[2024-04-30] MEDS: Metoprolol Tartrate 100 MG Tablet PO ×2 (08:34→20:35)
--- NOTE | 2024-04-30 12:17 | PCM.PROGNOTE ---
Subjective Subjective Afebrile VSS -blood pressures are elevated above goal at times. Heart rate ranges from 55-68. He denies lightheadedness. Maintaining appropriate oxygen saturation on RA Oral intake - FOOD good FLUIDS usually fair, about [id number] daily. Discussed with nursing - no problems that need addressed Reviewed the THERAPY notes Medication list reviewed. We received the report of the MRI done [facility]. At L4-L5 there is a tiny right foraminal protrusion with slight right foraminal narrowing and mild spinal stenosis secondary to a shallow disc bulge. At L3-4 there is mild spinal stenosis with posterior element hypertrophy and at L2-L3 there is mild spinal stenosis with a trace disc bulge and posterior element hypertrophy. He is doing very well with regard to pain with Prednisone. May benefit from epidurals going forward. Would have to hold Coumadin for the procedure. He is on Warfarin for AF and has no hx of valvular heart disease. Will check with his insurance to see if he would be covered for Eliquis or Xarelto. Eliquis and Xarelto are on formulary but, will need to check to see what the co-pay is. Will try and get him on a program to offset the co-pay of 200$ per month Yves tells me that his pain in the right leg is much better. He is ambulating with a better pace and his gait is not antalgic. He still has mild residual pain in the right buttock. The pain in the left knee is markedly improved and he has a little soreness in the left medial knee but is otherwise good Denies lightheadedness, cephalgia, chest pain, shortness of breath, palpitations, nausea/vomiting/abdominal pain, dysuria and calf tenderness. Swelling in his legs has decreased considerably with application of compression. Objective Data Objective Data Vital Signs: Vital Signs Temp Pulse Resp BP Pulse Ox O2 Del Method 97.9 F 64 16 112/68 97 Room Air 04/30/24 05:48 04/30/24 08:34 04/30/24 05:48 04/30/24 08:00 04/30/24 05:48 04/30/24 05:48 Oxygen Delivery Method Room Air Weight: 224 lb 3.362 oz Body Mass Index (BMI) 32.1 Intake & Output: Intake and Output for Last 24 Hours 04/28/24 04/29/24 04/30/24 23:59 23:59 23:59 Intake Total 1250 / 1250 1250 / 1350 960 / 960 Output Total 1750 / 1750 1400 / 1550 710 / 710 Balance -500 / -500 -150 / -200 250 / 250 Lab / Micro Data 05/02/24 05:45 05/02/24 05:45 Physical Exam Const alert, oriented x3 and no apparent distress General Appearance: cooperative, well kempt and well developed Nutritional Appearance: obese other (BMI is 32) HEENT normocephalic and head/scalp atraumatic Eyes PERRL, EOMs intact bilaterally, conjunctivae normal and no scleral icterus Eyes Narrative: No discharge from the eyes and no mattering of the eyelashes. General Eye: normal appearance of both eyes Neck supple, No nodes and no carotid bruits General: trachea midline Chest inspection of chest normal Chest: symmetrical chest wall rise Resp normal respiratory effort, normal air movement and clear to auscultation bilaterally Effort and Inspection: able to speak in complete sentences Cardio no murmurs and no gallops Cardio Narrative: Irregular irregular with controlled ventricular response. GI normal to inspection, nondistended, normoactive bowel sounds, soft to palpation and non-tender GI Narrative: No guarding with palpation. Denies constipation. no CVA tenderness Back/Spine Back/Spine Narrative: Pain in the right lower back and the right buttock. The pain radiates from the right buttock around to the right lateral hip area and then into the right lateral thigh, medial and lateral calf and into the foot. Complaining of pain in the Achilles area. He has right foot drop. He has weakness of the right lower extremity and cannot lift his leg off the bed. He is able to flex his knee. He has positive straight leg raising on the right. Sensation was intact to pinprick bilaterally. Extremity Extremity Narrative: the ankle edema has resolved with the institution of Compression stockings. Still with effusion on the left knee but, no erythema, no openings in the skin. Better ROM today. Able to bear weight and walk with a FWW at a good pace at A. Skin no wounds General Skin Exam: no breakdown Rashes: no rashes Neuro oriented x3 and CN's II-XII intact bilaterally Neuro Narrative: Weakness of the right lower extremity. Right foot drop. Positive straight leg raising on the right. Sensation was intact to pinprick on both lower extremities however he does complain of tingling in the right lower extremity and also burning pain. Psych cooperative and affect normal Appearance: grossly normal, appropriate and well kempt Attitude: calm Activity / Motor Behavior: appropriate eye contact Assessment & Plan Assessment/Plan (1) Debility: (2) Traumatic arthropathy, left knee: (3) Hemarthrosis, left knee: (4) Radiculopathy: QUALIFIERS: Spinal region: lumbar Qualified Code(s): M54.16 - Radiculopathy, lumbar region (5) Right foot drop: (6) Right leg weakness: (7) Myelopathy: (8) emt intermediate (current) use of anticoagulants: (9) Venous insufficiency: (10) Uncontrolled hypertension: PLAN: Plan 1. Continue therapy 2. Continue prednisone taper. Consider referral to Dr. Preciado for pain management/epidural going forward. 3. Check a BMP, HH and PT/INR in the a.m. 4. Change warfarin to 3 mg daily starting in the AM. Will receive 4 mg today. 5. I had a discussion with the patient about pain. I told him we are not going to be able to have him pain free. He has arthritis and is 78 years old with back pain, radicular pain, myelopathy in the R leg. The goal for pain management is to make the pain tolerable (3 or less). I also told him that he is going into need to keep active and moving to help with the stiffness and arthralgias. 6. His is checking with [employer] insurance to see if they cover Eliquis/apixaban/Xarelto/rivaroxaban and if so what the co-pay is. 7. May need to add an additional antihypertensive. Probably an YVETTE or ARB Charges/Coding Visit Charges Inpatient E&M: 66797 Subs Hosp L1
[2024-04-30] MEDS: Jantoven 2 MG Tablet PO (17:10)
[2024-04-30] MEDS: Atorvastatin Calcium 10 MG Tablet PO (20:35)
[2024-05-01] MEDS: Arthritis Pain Compound 60 CLICK TUBE TOPICAL ×3 (05:58→21:03)
[2024-05-01] MEDS: Acetaminophen 500 MG Tablet 1000 MG PO ×3 (05:59→21:04)
[2024-05-01 06:00] VITALS: BP 158/95; PULSE 46; RESP 16; TEMP 36.9; O2SAT 96
[2024-05-01] MEDS: traMADol 50 MG Tablet PO ×2 (06:00→21:03)
[2024-05-01 06:06] LABS: International Normalized Ratio 1.7; Prothrombin Time (Protime)PT. 19.5 SECONDS (11.7-14.9)
[2024-05-01] MEDS: NIFEdipine 60 MG Tablet PO (08:32)
[2024-05-01] MEDS: Psyllium 1 PACKET PO (08:32)
[2024-05-01] MEDS: Pantoprazole Sodium 20 MG Tablet PO (08:32)
[2024-05-01] MEDS: Multivitamin (Healthy Eyes) Capsule 1 CAP PO (08:32)
[2024-05-01] MEDS: Magnesium Chloride 64 MG Delay Rel.Tablet 128 MG PO (08:33)
[2024-05-01 08:35] VITALS: BP 110/64; PULSE 58
[2024-05-01] MEDS: Metoprolol Tartrate 100 MG Tablet PO ×2 (08:35→21:04)
[2024-05-01] MEDS: predniSONE 20 MG Tablet PO (08:35)
[2024-05-01 08:46] VITALS: BP 110/64; PULSE 58
--- NOTE | 2024-05-01 11:25 | PN_ITS ---
Subjective Subjective Yves was seen on team rounds today. His was present in the room and dtr participated by phone. Afebrile VSS - Maintaining appropriate oxygen saturation on RA Oral intake - FOOD good FLUIDS better with persistent encouragement to increase fluid intake. Discussed with nursing - no problems that need addressed. Sleeping well at night. Reviewed the THERAPY notes Medication list reviewed. My read denies lightheadedness, vertigo, CP, SOB at rest, SOB with exertion, cough, nausea, vomiting, abd pain, diarrhea, constipation, dysuria, calf pain. Ankle swelling has improved with application of compression wrap. Will prescribe Jobst calf compression at discharge so that he and his will be able to apply easily. Pain is much better in the R leg. small amount of discomfort in the medial left knee but, much better. Objective Data Objective Data Vital Signs: Vital Signs Temp Pulse Resp BP Pulse Ox O2 Del Method 98.4 F 58 L 16 110/64 96 Room Air 05/01/24 06:00 05/01/24 08:46 05/01/24 06:00 05/01/24 08:46 05/01/24 06:00 05/01/24 06:00 Oxygen Delivery Method Room Air Weight: 224 lb 3.362 oz Body Mass Index (BMI) 32.1 Intake & Output: Intake and Output for Last 24 Hours 04/29/24 04/30/24 05/01/24 23:59 23:59 23:59 Intake Total 1250 / 1350 2160 / 2160 740 / 740 Output Total 1400 / 1550 1810 / 1810 1170 / 1170 Balance -150 / -200 350 / 350 -430 / -430 Lab / Micro Data 05/02/24 05:45 05/02/24 05:45 Labs: Laboratory Results - last 24 hr 05/01/24 05:31: PT 19.5 H, INR 1.7 Physical Exam Const alert, oriented x3 and no apparent distress Constitutional Narrative: Ambulating with a better yonathan in a reciprocal fashion. General Appearance: cooperative Nutritional Appearance: obese other (BMI is 32) HEENT normocephalic and head/scalp atraumatic Eyes PERRL, EOMs intact bilaterally, conjunctivae normal and no scleral icterus Eyes Narrative: No discharge from the eyes and no mattering of the eyelashes. General Eye: normal appearance of both eyes Neck supple, No nodes and no carotid bruits General: trachea midline Chest inspection of chest normal Chest: symmetrical chest wall rise Resp clear to auscultation bilaterally Effort and Inspection: Negative for tachypneic or respiratory distress Cardio no gallops Cardio Narrative: Irregular irregular rhythm with controlled ventricular response. Taking metoprolol 100 mg twice daily. Occasionally bradycardic in the mid 50s but no lightheadedness. Rate: bradycardia; Negative for tachycardic GI normal to inspection, nondistended, normoactive bowel sounds, soft to palpation and non-tender GI Narrative: No guarding with palpation. Denies constipation. no CVA tenderness Back/Spine Back/Spine Narrative: Pain in the right lower back and the right buttock. The pain radiates from the right buttock around to the right lateral hip area and then into the right lateral thigh, medial and lateral calf and into the foot. Complaining of pain in the Achilles area. He has right foot drop. He has weakness of the right lower extremity and cannot lift his leg off the bed. He is able to flex his knee. He has positive straight leg raising on the right. Sensation was intact to pinprick bilaterally. Extremity no calf tenderness Extremity Narrative: Edema is overall much improved with compression. Skin no wounds General Skin Exam: no breakdown Rashes: no rashes Neuro oriented x3 and CN's II-XII intact bilaterally Neuro Narrative: Weakness of the right lower extremity. Right foot drop. Positive straight leg raising on the right. Sensation was intact to pinprick on both lower extremities however he does complain of tingling in the right lower extremity and also burning pain. Psych mental status grossly normal, thought process normal, cooperative, affect normal and speech normal Appearance: grossly normal, appropriate and well kempt Attitude: calm Activity / Motor Behavior: appropriate eye contact Assessment & Plan Assessment/Plan (1) Debility: (2) Traumatic arthropathy, left knee: (3) Hemarthrosis, left knee: (4) Radiculopathy: QUALIFIERS: Spinal region: lumbar Qualified Code(s): M54.16 - Radiculopathy, lumbar region (5) Right foot drop: (6) Right leg weakness: (7) Myelopathy: (8) skilled nursing (current) use of anticoagulants: (9) Venous insufficiency: (10) Uncontrolled hypertension: PLAN: Plan 1. Continue therapy 2. Continue prednisone taper. Consider referral to Dr. Preciado for pain management/epidural going forward. 3. Check a BMP, HH and PT/INR in the a.m. 4. Change warfarin to 3 mg daily starting in the AM. Will receive 4 mg today. 5. I had a discussion with the patient about pain. I told him we are not going to be able to have him pain free. He has arthritis and is 78 years old with back pain, radicular pain, myelopathy in the R leg. The goal for pain management is to make the pain tolerable (3 or less). I also told him that he is going into need to keep active and moving to help with the stiffness and arthralgias. 6. His is checking with [employer] insurance to see if they cover Eliquis/apixaban/Xarelto/rivaroxaban and if so what the co-pay is. Charges/Coding Visit Charges Inpatient E&M: 12408 Subs Hosp L2
--- NOTE | 2024-05-01 13:14 | CASEMGMT ---
Social Work IDT met with patient and then conference with dtr for Team meeting. Discussed patient's progress in PT/OT/SN. Educated to Medicare approval of 16 days with [facility] 05/11. Pt's goal is to return home with . can assist with IADLs. Dr recommending [facility] at DC and pt agreeable. SW will continue to follow for DC planning. Jana Castaneda, TALENT RECRUITER SANDER SETTER
--- NOTE | 2024-05-01 15:56 | CHAPLAIN ---
Type of Pastoral Visit _x__ Initial Visit ___ Follow-up Visit ___ On-call Visit ___ General Patient Visit ___ Spiritual Assessment ___ Family Conference ___ Bereavement ___ Rapid Response ___ Code Blue ___ Other (describe below) Pastoral Care Referral From _x__ Patient ___ Family ___ Nurse ___ Physician ___ Outdoor Landscape Architect ___ Tunneling Machine Operator ___ Other (describe below) Sacrament/Intervention _x__ Active listening ___ Anointing ___ Bahai ___ Bereavement ___ Communion ___ Chanell exploration ___ _x__ Life review ___ Prayer ___ Reconciliation ___ Sacrament of Sick ___ Supportive presence ___ Wedding ___ Other (describe below) Pastoral Comments patient has been seen recently in another hospital before he came to [facility]; pt explains how well things are going and that he is extremely pleased with the progress and good care; pt is optimistic about going home whenever that is needed and that he can count on the help of many others for his care and improvement; otherwise casual conversation about life and thoughts
[2024-05-01 17:03] VITALS: BP 107/66; PULSE 58; RESP 16; TEMP 36.6; O2SAT 97
[2024-05-01 21:00] VITALS: BP 112/65; PULSE 64
[2024-05-01 21:04] VITALS: PULSE 64
[2024-05-01] MEDS: Atorvastatin Calcium 10 MG Tablet PO (21:04)
[2024-05-02] MEDS: Arthritis Pain Compound 60 CLICK TUBE TOPICAL ×3 (05:22→20:35)
[2024-05-02] MEDS: Acetaminophen 500 MG Tablet 1000 MG PO ×3 (05:22→20:38)
[2024-05-02 06:00] VITALS: BP 139/85; PULSE 55; RESP 17; TEMP 36.3; O2SAT 96
[2024-05-02 06:04] LABS: Absolute Lymphocyte Count 1.94 X10^3/uL (0.83-4.51); Absolute Neutrophil Count 4.5 X10^3/uL (2.0-7.7); Basophil# 0.06 X10^3/uL; Basophil% 0.8 % (0-1); Eosinophil# 0.02 X10^3/uL; Eosinophils% 0.3 % (0-5); Hematocrit 39.4 % (40-54); Hemoglobin 12.9 g/dL (13.0-16.5); Lymphocyte # 1.94 X10^3/ul (0.83-4.51); Lymphocyte % 26.3 % (19-41); Mean Corp Hgb Conc 32.7 g/dL (32-36); Mean Corpuscular Hgb 29.9 pg (27.0-32.0); Mean Corpuscular Volume 91.2 fL (80-94); Mean Platelet Vol. 8.9 fl (6.2-12.0); Monocyte# 0.75 X10^3/uL; Monocyte% 10.2 % (0-10); NRBC Flagged by Analyzer 0 % (0-5); Neutrophil # 4.48 X10^3/uL (2.7-7.7); Neutrophil % 60.6 % (47-70); Platelet Count 325 K/mm3 (150-450); RBC Distribution Width CV 15.2 % (11.6-14.6); Red Blood Count 4.32 M/mm3 (4.6-6.2); White Blood Count 7.4 K/mm3 (4.4-11.0)
[2024-05-02] MEDS: traMADol 50 MG Tablet PO ×2 (06:07→20:35)
[2024-05-02 06:28] LABS: International Normalized Ratio 1.6; Prothrombin Time (Protime)PT. 18.9 SECONDS (11.7-14.9)
[2024-05-02 08:23] VITALS: BP 139/85; PULSE 55
[2024-05-02] MEDS: predniSONE 20 MG Tablet PO (08:23)
[2024-05-02] MEDS: Psyllium 1 PACKET PO (08:23)
[2024-05-02] MEDS: Pantoprazole Sodium 20 MG Tablet PO (08:23)
[2024-05-02] MEDS: Multivitamin (Healthy Eyes) Capsule 1 CAP PO (08:23)
[2024-05-02] MEDS: Magnesium Chloride 64 MG Delay Rel.Tablet 128 MG PO (08:23)
[2024-05-02] MEDS: NIFEdipine 60 MG Tablet PO (08:23)
[2024-05-02] MEDS: Metoprolol Tartrate 100 MG Tablet PO ×2 (08:23→20:39)
[2024-05-02 09:40] LABS: ALB/GLOB Ratio 0.8 RATIO (0.9-2.4); AST(SGOT) 18 U/L (15-37); Alanine Aminotransfer ALT/SGPT 34 U/L (16-61); Albumin, Serum 2.6 g/dL (3.2-5.0); Alkaline Phosphatase 61 U/L (45-117); Anion Gap 5 (5-15); BUN 19 mg/dL (7-18); BUN/Creat Ratio 23.7 RATIO (10-20); Calcium,Total 8.7 mg/dL (8.5-10.1); Chloride 103 mmol/L (98-107); EST Glomerular Filtration Rate 99 mL/min (>60); Est Glom Filt Rate - Afr Amer 120 mL/min (>60); Globulin 3.4 g/dL (2.2-4.2); Glucose 89 mg/dL (74-106); Magnesium 2.1 mg/dL (1.6-2.6); Phosphorus 2.7 mg/dL (2.5-4.9); Potassium 3.5 mmol/L (3.5-5.1); Sodium Level 137 mmol/L (136-145)
--- NOTE | 2024-05-02 11:06 | PN_ITS ---
Subjective Subjective Afebrile VSS - Maintaining appropriate oxygen saturation on RA Oral intake - FOOD [] FLUIDS [] Discussed with nursing - no problems that need addressed Reviewed the THERAPY notes Medication list reviewed. All lab drawn this morning was personally reviewed. White blood cell count is normal at 7.4. Hemoglobin is stable at 12.9. RDW is mildly elevated. Platelets are within normal limits. There are increased immature granulocytes secondary to steroids. INR is 1.6 today/subtherapeutic. Sodium is 137 and the potassium is 3.5. The BUN is 19 and the creatinine is 0.8 with a GFR of 99. Phos and mag are normal. LFTs are normal. Objective Data Objective Data Vital Signs: Vital Signs Temp Pulse Resp BP Pulse Ox O2 Del Method 97.4 F L 55 L 17 139/85 H 96 Room Air 05/02/24 06:00 05/02/24 08:23 05/02/24 06:00 05/02/24 08:23 05/02/24 06:00 05/02/24 06:00 Oxygen Delivery Method Room Air Weight: 224 lb 3.362 oz Body Mass Index (BMI) 32.1 Intake & Output: Intake and Output for Last 24 Hours 04/30/24 05/01/24 05/02/24 23:59 23:59 23:59 Intake Total 2160 / 2160 1220 / 1420 560 / 560 Output Total 1810 / 1810 1470 / 1870 1050 / 1050 Balance 350 / 350 -250 / -450 -490 / -490 Lab / Micro Data 05/02/24 05:45 05/02/24 05:45 Labs: Laboratory Results - last 24 hr 05/02/24 05:45: WBC 7.4, RBC 4.32 L, Hgb 12.9 L, Hct 39.4 L, MCV 91.2, MCH 29.9, MCHC 32.7, RDW Std Deviation 51.0 H, RDW Coeff of Naheed 15.2 H, Plt Count 325, MPV 8.9, Immature Gran % (Auto) 1.800 H, Neut % (Auto) 60.6, Lymph % (Auto) 26.3, [place] % (Auto) 10.2 H, Eos % (Auto) 0.3, Baso % (Auto) 0.8, Absolute Neuts (auto) 4.5, Absolute Lymphs (auto) 1.94, Nucleated RBC % 0, PT 18.9 H, INR 1.6, Sodium 137, Potassium 3.5, Chloride 103, Carbon Dioxide 29.0, Anion Gap 5, BUN 19 H, Creatinine 0.80, Estim Creat Clear Calc 92.40, Est GFR (MDRD) Af Amer 120, Est GFR (MDRD) Non-Af 99, BUN/Creatinine Ratio 23.7 H, Glucose 89, Calcium 8.7, Phosphorus 2.7, Magnesium 2.1, Total Bilirubin 0.40, AST 18, ALT 34, Alkaline Phosphatase 61, Total Protein 6.0 L, Albumin 2.6 L, Globulin 3.4, A lbumin/Globulin Ratio 0.8 L Assessment & Plan Assessment/Plan (1) Debility: (2) Traumatic arthropathy, left knee: (3) Hemarthrosis, left knee: (4) Radiculopathy: QUALIFIERS: Spinal region: lumbar Qualified Code(s): M54.16 - Radiculopathy, lumbar region (5) Right foot drop: (6) Right leg weakness: (7) Myelopathy: (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 Continue therapy 2. Blood pressure is not adequately controlled. Blood pressures are high early in the a.m. but yesterday from 8:30 AM to at bedtime the blood sugar was well within goal. There is no lightheadedness. Heart rate ranges from 55-64. Cannot increase the beta-cony due to some bradycardia. He is already taking Procardia XL 60 mg daily and increasing this dose will likely add to the peripheral edema. Will start Cozaar at bedtime. 3. Recheck a BMP and HH on Sunday. 4. Hemoccult stool-continue Protonix until he has been off steroids for 1 week at least. 5. He is to receive 3 mg of warfarin today and will add an extra 2 mg since he is subtherapeutic. Recheck PT/INR on Sunday. Completed a RX for Eliquis......applying for a coupon to help defray the cost of Eliquis. Jobst calf compression stockings at discharge Pt still maintains he is not willing to pursue treatment of previously diagnosed KAREN.
[2024-05-02 17:05] VITALS: BP 93/60; PULSE 56; RESP 16; TEMP 36.8; O2SAT 96
[2024-05-02] MEDS: Jantoven 2 MG Tablet PO (17:18)
[2024-05-02 17:31] VITALS: BP 113/62; PULSE 58
[2024-05-02] MEDS: Atorvastatin Calcium 10 MG Tablet PO (20:35)
[2024-05-02] MEDS: Losartan Potassium 25 MG Tablet PO (20:36)
[2024-05-02 20:39] VITALS: BP 118/77; PULSE 65
[2024-05-03 06:00] VITALS: BP 142/86; PULSE 54; RESP 18; TEMP 36.3; O2SAT 97
[2024-05-03] MEDS: Acetaminophen 500 MG Tablet 1000 MG PO ×3 (06:31→21:01)
[2024-05-03] MEDS: Arthritis Pain Compound 60 CLICK TUBE TOPICAL ×3 (06:32→21:01)
[2024-05-03] MEDS: traMADol 50 MG Tablet PO ×2 (07:01→21:05)
[2024-05-03] MEDS: Pantoprazole Sodium 20 MG Tablet PO (08:03)
[2024-05-03] MEDS: Psyllium 1 PACKET PO (08:03)
[2024-05-03] MEDS: Magnesium Chloride 64 MG Delay Rel.Tablet 128 MG PO (08:04)
[2024-05-03] MEDS: NIFEdipine 60 MG Tablet PO (08:04)
[2024-05-03] MEDS: Multivitamin (Healthy Eyes) Capsule 1 CAP PO (08:04)
[2024-05-03 08:06] VITALS: PULSE 60
[2024-05-03] MEDS: Metoprolol Tartrate 100 MG Tablet PO ×2 (08:06→21:06)
[2024-05-03] MEDS: predniSONE 20 MG Tablet PO (08:09)
[2024-05-03 08:26] VITALS: BP 114/82; PULSE 66
[2024-05-03 18:00] VITALS: BP 103/69; PULSE 55; RESP 17; TEMP 35.8; O2SAT 95
[2024-05-03] MEDS: Atorvastatin Calcium 10 MG Tablet PO (21:01)
[2024-05-03] MEDS: Losartan Potassium 25 MG Tablet PO (21:01)
[2024-05-03 21:06] VITALS: BP 122/71; PULSE 65
[2024-05-04 05:34] VITALS: BP 152/83; PULSE 56; RESP 18; TEMP 36.8; O2SAT 96
[2024-05-04] MEDS: Acetaminophen 500 MG Tablet 1000 MG PO ×3 (05:58→21:21)
[2024-05-04] MEDS: Arthritis Pain Compound 60 CLICK TUBE TOPICAL ×3 (05:59→21:20)
[2024-05-04 08:24] VITALS: PULSE 60
[2024-05-04] MEDS: Metoprolol Tartrate 100 MG Tablet PO ×2 (08:24→21:21)
[2024-05-04] MEDS: Multivitamin (Healthy Eyes) Capsule 1 CAP PO (08:24)
[2024-05-04] MEDS: Pantoprazole Sodium 20 MG Tablet PO (08:24)
[2024-05-04] MEDS: Psyllium 1 PACKET PO (08:25)
[2024-05-04] MEDS: traMADol 50 MG Tablet PO ×2 (08:25→21:21)
[2024-05-04] MEDS: Magnesium Chloride 64 MG Delay Rel.Tablet 128 MG PO (08:25)
[2024-05-04] MEDS: predniSONE 20 MG Tablet PO (08:26)
[2024-05-04] MEDS: NIFEdipine 60 MG Tablet PO (08:27)
[2024-05-04 08:35] VITALS: BP 127/74; PULSE 60
[2024-05-04 18:00] VITALS: BP 101/67; PULSE 61; RESP 15; TEMP 35.9; O2SAT 97
[2024-05-04 21:21] VITALS: PULSE 60
[2024-05-04] MEDS: Atorvastatin Calcium 10 MG Tablet PO (21:21)
[2024-05-04] MEDS: Losartan Potassium 25 MG Tablet PO (21:21)
[2024-05-04 21:26] VITALS: BP 115/62
[2024-05-05] MEDS: Acetaminophen 500 MG Tablet 1000 MG PO ×3 (05:41→21:34)
[2024-05-05] MEDS: Arthritis Pain Compound 60 CLICK TUBE TOPICAL ×3 (05:41→21:34)
[2024-05-05 05:56] LABS: Hematocrit 41.9 % (40-54); Hemoglobin 13.5 g/dL (13.0-16.5)
[2024-05-05 06:00] VITALS: BP 132/74; PULSE 56; RESP 16; TEMP 36.3; O2SAT 96
[2024-05-05 06:05] LABS: International Normalized Ratio 2.5; Prothrombin Time (Protime)PT. 26.6 SECONDS (11.7-14.9)
[2024-05-05 06:59] LABS: Anion Gap 4 (5-15); BUN 22 mg/dL (7-18); BUN/Creat Ratio 30.9 RATIO (10-20); Calcium,Total 8.3 mg/dL (8.5-10.1); Chloride 103 mmol/L (98-107); Creatinine, Serum 0.71 mg/dL (0.70-1.30); EST Glomerular Filtration Rate 114 mL/min (>60); Est Glom Filt Rate - Afr Amer 138 mL/min (>60); Glucose 93 mg/dL (74-106); Potassium 3.7 mmol/L (3.5-5.1); Sodium Level 137 mmol/L (136-145)
[2024-05-05] MEDS: traMADol 50 MG Tablet PO ×2 (07:02→21:34)
[2024-05-05 08:03] VITALS: BP 132/74; PULSE 56
[2024-05-05] MEDS: NIFEdipine 60 MG Tablet PO (08:03)
[2024-05-05] MEDS: Magnesium Chloride 64 MG Delay Rel.Tablet 128 MG PO (08:03)
[2024-05-05] MEDS: Multivitamin (Healthy Eyes) Capsule 1 CAP PO (08:03)
[2024-05-05] MEDS: Pantoprazole Sodium 20 MG Tablet PO (08:03)
[2024-05-05] MEDS: Metoprolol Tartrate 100 MG Tablet PO ×2 (08:03→21:33)
[2024-05-05] MEDS: predniSONE 20 MG Tablet PO (08:03)
[2024-05-05] MEDS: Psyllium 1 PACKET PO (08:03)
--- NOTE | 2024-05-05 10:31 | PN_ITS ---
Subjective Subjective Afebrile VSS -blood pressure looking better with the addition of losartan 25 mg to the drug regimen. Blood pressure this a.m. is 132/74. Has some mild bradycardia at rest in the 55-60 range but denies lightheadedness. Maintaining appropriate oxygen saturation on RA Oral intake - FOOD good FLUIDS good Discussed with nursing - no problems that need addressed Reviewed the THERAPY notes Medication list reviewed. All lab drawn this morning was personally reviewed. The hemoglobin is stable at 13.5. INR is 2.5. Sodium is 137 and the potassium is 3.7 and stable. The BUN is 22 with a creatinine of 0.71. Tells me that his pain is well controlled but, in the next breath asking when he can see Dr. Preciado and get an epidural. Was non-compliant with the dosing of Gabapentin at home..... tells me that he took it to sleep. He was on a high dose of Gabapentin for his age and it is likely this contributes to falls. and dtr both tell me that he does not tolerate pain/discomfort well. We have been trying to educate him on when it is appropriate to consider taking something more than Tylenol for pain and that the goal of pain management is not to totally relieve pain but, to make the pain tolerable. He repeats the same info and asks me the same questions most every day. I will encourage his family to manage pain medications at [place]. He does not appear to be in any distress. He is ambulating with good yonathan with reciprocal stepping. Pleasant talking to everyone. Not restless. Denies chest pain, shortness of breath, palpitations, lightheadedness, nausea/vomiting/abdominal pain, dysuria and calf tenderness. No pain in the RLE but, still with mild R buttock pain. Objective Data Objective Data Vital Signs: Vital Signs Temp Pulse Resp BP Pulse Ox O2 Del Method 97.4 F L 56 L 16 132/74 H 96 Room Air 05/05/24 06:00 05/05/24 08:03 05/05/24 06:00 05/05/24 08:03 05/05/24 06:00 05/05/24 06:00 Oxygen Delivery Method Room Air Weight: 224 lb 3.362 oz Body Mass Index (BMI) 32.1 Intake & Output: Intake and Output for Last 24 Hours 05/03/24 05/04/24 05/05/24 23:59 23:59 23:59 Intake Total 1909 / 1909 1400 / 1400 490 / 490 Output Total 2650 / 2925 2024 625 / 625 Balance -740 / -1015 -625 / -625 -135 / -135 Lab / Micro Data 05/05/24 05:40 05/05/24 05:40 Labs: Laboratory Results - last 24 hr 05/05/24 05:40: Hgb 13.5, Hct 41.9, PT 26.6 H, INR 2.5, Sodium 137, Potassium 3.7, Chloride 103, Carbon Dioxide 30.0, Anion Gap 4 L, BUN 22 H, Creatinine 0.71, Estim Creat Clear Calc 92.40, Est GFR (MDRD) Af Amer 138, Est GFR (MDRD) Non-Af 114, BUN/Creatinine Ratio 30.9 H, Glucose 93, Calcium 8.3 L Micro: Microbiology 05/03/24 08:22 Stool Stool Occult Blood (MADAY) - Final Occult Blood Positive Physical Exam Const alert, oriented x3 and no apparent distress General Appearance: cooperative Resp clear to auscultation bilaterally Effort and Inspection: Negative for tachypneic or respiratory distress Cardio no gallops Cardio Narrative: Irregular irregular rhythm with controlled ventricular response. Taking metoprolol 100 mg twice daily. Occasionally bradycardic in the mid 50s but no lightheadedness. Rate: bradycardia; Negative for tachycardic GI normal to inspection, nondistended, normoactive bowel sounds, soft to palpation and non-tender GI Narrative: No guarding with palpation. Denies constipation. no CVA tenderness Extremity no calf tenderness Extremity Narrative: Edema is overall much improved with compression. Neuro Neuro Narrative: Straight leg raising is negative now. Assessment & Plan Assessment/Plan (1) Debility: (2) Traumatic arthropathy, left knee: (3) Hemarthrosis, left knee: (4) Radiculopathy: QUALIFIERS: Spinal region: lumbar Qualified Code(s): M54.16 - Radiculopathy, lumbar region (5) Right foot drop: (6) Right leg weakness: (7) Myelopathy: (8) nursing home (current) use of anticoagulants: (9) Venous insufficiency: (10) Uncontrolled hypertension: PLAN: Plan 1. Continue therapy 2. Continue losartan 25 mg p.o. daily at at bedtime 3. Check a vitamin D level as the calcium is mildly decreased. 4. Continue to taper the prednisone. Follow up with Dr. Preciado post DC 5. Continue warfarin at 3 mg p.o. daily and recheck a PT/INR prior to discharge. Would like to get him converted to Eliquis, paperwork submitted for a coupon for Eliquis.. Hopefully with a discount he can afford co-pay. Charges/Coding Visit Charges Inpatient E&M: 78110 Subs Hosp L1
[2024-05-05 11:21] LABS: Vitamin D,25 Hydroxy 29.6 ng/mL
[2024-05-05 18:00] VITALS: BP 117/64; PULSE 54; RESP 16; TEMP 36.9; O2SAT 96
[2024-05-05 21:33] VITALS: BP 141/95; PULSE 68
[2024-05-05] MEDS: Atorvastatin Calcium 10 MG Tablet PO (21:33)
[2024-05-05] MEDS: Losartan Potassium 25 MG Tablet PO (21:34)
[2024-05-06 06:00] VITALS: BP 129/87; PULSE 54; RESP 16; TEMP 36.6; O2SAT 94
[2024-05-06] MEDS: traMADol 50 MG Tablet PO ×2 (06:37→20:06)
[2024-05-06] MEDS: Arthritis Pain Compound 60 CLICK TUBE TOPICAL ×3 (06:37→20:15)
[2024-05-06] MEDS: Acetaminophen 500 MG Tablet 1000 MG PO ×3 (06:37→20:20)
[2024-05-06 08:00] VITALS: BP 129/87; PULSE 54
[2024-05-06] MEDS: Multivitamin (Healthy Eyes) Capsule 1 CAP PO (08:00)
[2024-05-06] MEDS: Metoprolol Tartrate 100 MG Tablet PO ×2 (08:00→20:16)
[2024-05-06] MEDS: Magnesium Chloride 64 MG Delay Rel.Tablet 128 MG PO (08:00)
[2024-05-06] MEDS: Pantoprazole Sodium 20 MG Tablet PO (08:00)
[2024-05-06] MEDS: NIFEdipine 60 MG Tablet PO (08:01)
[2024-05-06 18:00] VITALS: BP 110/56; PULSE 54; RESP 17; TEMP 36.4; O2SAT 97
[2024-05-06 20:05] VITALS: BP 113/72; PULSE 59
[2024-05-06 20:16] VITALS: BP 113/72; PULSE 59
[2024-05-06] MEDS: Atorvastatin Calcium 10 MG Tablet PO (20:16)
[2024-05-06] MEDS: Losartan Potassium 25 MG Tablet PO (20:16)
[2024-05-06 22:00] VITALS: PULSE 59; RESP 16; O2SAT 96
[2024-05-07 05:54] VITALS: BP 143/81; PULSE 56; RESP 18; TEMP 36.6; O2SAT 96
[2024-05-07] MEDS: Acetaminophen 500 MG Tablet 1000 MG PO ×3 (05:56→21:09)
[2024-05-07] MEDS: Arthritis Pain Compound 60 CLICK TUBE TOPICAL ×3 (05:56→21:10)
[2024-05-07] MEDS: traMADol 50 MG Tablet PO ×2 (05:59→21:09)
[2024-05-07 06:00] VITALS: BMI 31.1
[2024-05-07 07:46] VITALS: BP 143/81; PULSE 56
[2024-05-07] MEDS: Metoprolol Tartrate 100 MG Tablet PO ×2 (07:46→21:10)
[2024-05-07] MEDS: NIFEdipine 60 MG Tablet PO (07:47)
[2024-05-07] MEDS: Pantoprazole Sodium 20 MG Tablet PO (07:47)
[2024-05-07] MEDS: Multivitamin (Healthy Eyes) Capsule 1 CAP PO (07:47)
[2024-05-07] MEDS: Magnesium Chloride 64 MG Delay Rel.Tablet 128 MG PO (07:47)
[2024-05-07] MEDS: Psyllium 1 PACKET PO (07:47)
[2024-05-07 17:33] VITALS: BP 118/82; PULSE 55; RESP 15; TEMP 36.6; O2SAT 98
[2024-05-07] MEDS: Atorvastatin Calcium 10 MG Tablet PO (21:09)
[2024-05-07 21:10] VITALS: BP 133/80; PULSE 62
[2024-05-07] MEDS: Losartan Potassium 25 MG Tablet PO (21:10)
[2024-05-08 06:20] VITALS: BP 150/85; PULSE 62; RESP 16; TEMP 36; O2SAT 95
[2024-05-08] MEDS: Arthritis Pain Compound 60 CLICK TUBE TOPICAL ×3 (06:44→21:58)
[2024-05-08] MEDS: traMADol 50 MG Tablet PO ×2 (06:45→22:04)
[2024-05-08] MEDS: Acetaminophen 500 MG Tablet 1000 MG PO ×3 (06:45→22:02)
[2024-05-08 06:54] LABS: International Normalized Ratio 1.9; Prothrombin Time (Protime)PT. 21.7 SECONDS (11.7-14.9)
[2024-05-08 08:07] VITALS: PULSE 62
[2024-05-08] MEDS: Multivitamin (Healthy Eyes) Capsule 1 CAP PO (08:07)
[2024-05-08] MEDS: Psyllium 1 PACKET PO (08:07)
[2024-05-08] MEDS: Magnesium Chloride 64 MG Delay Rel.Tablet 128 MG PO (08:07)
[2024-05-08] MEDS: Metoprolol Tartrate 100 MG Tablet PO ×2 (08:07→21:59)
[2024-05-08] MEDS: Pantoprazole Sodium 20 MG Tablet PO (08:07)
[2024-05-08] MEDS: NIFEdipine 60 MG Tablet PO (08:07)
--- NOTE | 2024-05-08 12:55 | CASEMGMT ---
Social Work IDT met with patient and for Team meeting. Discussed patient's progress in PT/OT/SN. Confirmed Medicare DC for 05/11 home with . Confirmed [facility] at DC. purchased all recommended DME. No other needs identified. to transport. Plan: DC home with 05/11, [facility] MAIRA StaffordW
--- NOTE | 2024-05-08 14:55 | PN_ITS ---
Subjective Subjective Yves was seen on team rounds today. His was present in the room. Afebrile VSS -heart rate ranges from 55-62. He denies lightheadedness. Blood pressure over the past 24 hours has ranged from 118/82 to 150/85 this morning. Maintaining appropriate oxygen saturation on RA Oral intake - FOOD good FLUIDS good Discussed with nursing - no problems that need addressed. Sleeping well at night, good appetite, having regular bowel movements. Reviewed the THERAPY notes Medication list reviewed. Yves is happy with his pain control and feels that the arthritis cream is helping his right low back and buttock pain. He denies radicular pain in the right lower extremity but continues to have some tingling. He denies lightheadedness, chest pain, shortness of breath, palpitations, abdominal pain, diarrhea/constipation, dysuria and calf tenderness. INR today is 1.9. Objective Data Objective Data Vital Signs: Vital Signs Temp Pulse Resp BP Pulse Ox O2 Del Method 96.8 F L 62 16 150/85 H 95 Room Air 05/08/24 06:20 05/08/24 08:07 05/08/24 06:20 05/08/24 06:20 05/08/24 06:20 05/08/24 06:20 Oxygen Delivery Method Room Air Weight: 217 lb 9.54 oz Body Mass Index (BMI) 31.1 Intake & Output: Intake and Output for Last 24 Hours 05/06/24 05/07/24 05/08/24 23:59 23:59 23:59 Intake Total 1860 / 1980 1940 / 1940 720 / 720 Output Total 2150 / 2500 1500 / 1500 1600 / 1600 Balance -290 / -520 440 / 440 -880 / -880 Lab / Micro Data 05/05/24 05:40 05/05/24 05:40 Labs: Laboratory Results - last 24 hr 05/08/24 05:24: PT 21.7 H, INR 1.9 Micro: Microbiology 05/03/24 08:22 Stool Stool Occult Blood (MADAY) - Final Occult Blood Positive Physical Exam Const alert, oriented x3 and no apparent distress Constitutional Narrative: Sitting in the recliner at the bedside and appears comfortable. He is not restless. General Appearance: cooperative Resp clear to auscultation bilaterally Effort and Inspection: Negative for tachypneic or respiratory distress Cardio no gallops Cardio Narrative: Irregular irregular rhythm with controlled ventricular response. Taking metoprolol 100 mg twice daily. Occasionally bradycardic in the mid 50s but no lightheadedness. GI normal to inspection, nondistended, normoactive bowel sounds, soft to palpation and non-tender GI Narrative: No guarding with palpation. Denies constipation. Extremity no calf tenderness Extremity Narrative: Edema is overall much improved with compression. Neuro Neuro Narrative: Straight leg raising is negative now. Assessment & Plan Assessment/Plan (1) Debility: (2) Traumatic arthropathy, left knee: (3) Hemarthrosis, left knee: (4) Radiculopathy: QUALIFIERS: Spinal region: lumbar Qualified Code(s): M54.16 - Radiculopathy, lumbar region (5) Right foot drop: (6) Right leg weakness: (7) Myelopathy: (8) senior care (current) use of anticoagulants: (9) Venous insufficiency: (10) Uncontrolled hypertension: PLAN: Plan 1. Continue therapy 2. Increase Cozaar to 50 mg at at bedtime to get the blood pressure consistently under 140/80. 3. Discontinue scheduled tramadol but continue tramadol 50 mg every 6 hours as needed for pain 4-10. 4. Will prescribe Jobst calf compression stockings at discharge. He has venous insufficiency and is also on nicardipine which increases peripheral edema. 5. Will follow-up with Dr. Preciado for pain management post discharge. 6. He has been off prednisone now and is happy with his pain control. He feels that the arthritis pain cream is helping his right buttock and low back. Plan on continuing this at discharge and he and his understand that insurance likely will not pay for this and that the only place he can get this cream is at the retail pharmacy at [facility]. 7. Plan discharge Sunday to home with outpatient therapy at [facility] 8. Given extra 2 mg of warfarin today for a total of 5 mg today. Recheck a PTT/INR, H&H and BMP on Sunday. Change the warfarin dosing to 3 mg on Sunday, Sunday, , Sunday and Sunday. 4 mg on Sunday and Sunday. Charges/Coding Visit Charges Inpatient E&M: 86341 Subs Hosp L2
[2024-05-08] MEDS: Jantoven 2 MG Tablet PO (15:29)
[2024-05-08 18:00] VITALS: BP 105/63; PULSE 62; RESP 18; TEMP 36.8; O2SAT 95
[2024-05-08 21:57] VITALS: BP 129/77; PULSE 54
[2024-05-08 21:59] VITALS: PULSE 54
[2024-05-08] MEDS: Atorvastatin Calcium 10 MG Tablet PO (21:59)
[2024-05-08] MEDS: Losartan Potassium 50 MG Tablet PO (21:59)
[2024-05-09] MEDS: Acetaminophen 500 MG Tablet 1000 MG PO ×3 (05:55→21:16)
[2024-05-09] MEDS: Arthritis Pain Compound 60 CLICK TUBE TOPICAL ×3 (05:57→21:17)
[2024-05-09 06:00] VITALS: BP 143/83; PULSE 59; RESP 18; TEMP 36.4; O2SAT 98
[2024-05-09 07:04] LABS: Absolute Neutrophil Count 4.8 X10^3/uL (2.0-7.7); Basophil# 0.05 X10^3/uL; Basophil% 0.7 % (0-1); Eosinophil# 0.11 X10^3/uL; Eosinophils% 1.5 % (0-5); Hematocrit 39.9 % (40-54); Hemoglobin 12.8 g/dL (13.0-16.5); Lymphocyte % 18.2 % (19-41); Mean Corp Hgb Conc 32.1 g/dL (32-36); Mean Corpuscular Hgb 29.4 pg (27.0-32.0); Mean Corpuscular Volume 91.7 fL (80-94); Mean Platelet Vol. 8.9 fl (6.2-12.0); Monocyte# 0.74 X10^3/uL; Monocyte% 10.4 % (0-10); NRBC Flagged by Analyzer 0 % (0-5); Neutrophil # 4.82 X10^3/uL (2.7-7.7); Neutrophil % 67.5 % (47-70); Platelet Count 295 K/mm3 (150-450); RBC Distribution Width CV 15.6 % (11.6-14.6); RBC Distribution Width SD 52.7 fl (35.1-43.9); Red Blood Count 4.35 M/mm3 (4.6-6.2); White Blood Count 7.1 K/mm3 (4.4-11.0)
[2024-05-09 07:41] LABS: ALB/GLOB Ratio 0.8 RATIO (0.9-2.4); AST(SGOT) 12 U/L (15-37); Alanine Aminotransfer ALT/SGPT 25 U/L (16-61); Albumin, Serum 2.6 g/dL (3.2-5.0); Alkaline Phosphatase 56 U/L (45-117); Anion Gap 4 (5-15); BUN 12 mg/dL (7-18); Calcium,Total 8.6 mg/dL (8.5-10.1); Chloride 106 mmol/L (98-107); EST Glomerular Filtration Rate 115 mL/min (>60); Est Glom Filt Rate - Afr Amer 139 mL/min (>60); Estimated Creatinine Clearance 91.09 ml/min; Globulin 3.2 g/dL (2.2-4.2); Glucose 102 mg/dL (74-106); Phosphorus 2.9 mg/dL (2.5-4.9); Potassium 3.6 mmol/L (3.5-5.1); Protein, Total 5.8 g/dL (6.4-8.2); Sodium Level 136 mmol/L (136-145)
[2024-05-09] MEDS: Multivitamin (Healthy Eyes) Capsule 1 CAP PO (08:04)
[2024-05-09] MEDS: Psyllium 1 PACKET PO (08:05)
[2024-05-09] MEDS: Magnesium Chloride 64 MG Delay Rel.Tablet 128 MG PO (08:05)
[2024-05-09] MEDS: NIFEdipine 60 MG Tablet PO (08:05)
[2024-05-09] MEDS: Pantoprazole Sodium 20 MG Tablet PO (08:05)
[2024-05-09 08:09] VITALS: BP 130/66; PULSE 61
[2024-05-09] MEDS: Metoprolol Tartrate 100 MG Tablet PO ×2 (08:09→21:17)
[2024-05-09 10:00] VITALS: PULSE 60; RESP 18
--- NOTE | 2024-05-09 16:22 | DCINST_ITS ---
Discharge Instructions Diet Discharge Diet: Low fat / Low cholesterol Activity Discharge Activity: May Not Drive, May Shower and Use Walker Weight Bearing Status: Full weight bearing Keep extremity elevated above heart level: Legs Additional Activity Instructions:: Keeping the legs elevated when you are sitting in a chair will help control the swelling in the legs. Dressing / Incision Call your doctor if you observe: Fever of 101 or Higher, Inability to urinate, Shortness of breath, Dizziness, Chest pain, Increased palpitations (irregular heartbeat), Calf discomfort and Uncontrolled pain Follow Up Care Please Follow Up With: Dr. Zulema Campbell When: You have appts scheduled with Dr. Campbell and with Dr. Preciado (the pain management doctor). They are listed later in this document. Test Results: Test results from this visit will be discussed in further detail at your follow- up appointment, if applicable. Pending Tests Upon Discharge: none Discharge Plan Admission Admit Date/Time: 04/25/24 17:37 Primary Reason for Your Visit: Debility due to a fall with L knee hemarthrosis Attending Provider: Rubina Chaidez Primary Care Provider: Zulema Campbell Instructions Patient Instructions: CVI, ED Chronic Pain, ED Foot Drop Additional Instructions / Restrictions: 1. 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 This is due to arthritis in your back with compression of the nerves that come out of the back and go into your R leg. If you fall you cause inflammation in the back and this increases swelling which puts pressure on the nerve root and increases the pain. You have weakness in the R leg and you have foot drop. This is not going to go away.....you are going to have to learn to live with it. You should ALWAYS use a walker when you are ambulating. You have better balance with a walker. You also need to have a brace for the R lower leg/foot to keep you from dragging your toe. Sometimes people who have to wear a brace need to buy 2 different sizes of shoes........the one on the R may need to be a size bigger or wider to accommodate the brace. I HIGHLY RECOMMEND you avoid using medications that cause drowsiness/lightheadedness/confusion because these things contribute to increased falls. I am referring you to a pain management doctor.......his name is Dr. Preciado. He is very good at what he does. Take your medications exactly as prescribed and do not take extra........taking too much of a medication will get you into trouble. 2. As we get older and develop arthritis it is important to KEEP MOVING. If you sit for longer than 1 hour without getting up to take a walk and move around you will get stiff and this will make pain worse so, do NOT sit for longer than 1 hour in that recliner without getting up and taking a walk around the house. I think it would be an excellent idea for you to have a membership to [employer].......so you can go workout and exercise to maintain your strength and flexibility. MOVE IT OR LOSE IT! 3. You did a real good job on rehab and worked hard. You have come a long way. If you want to stay out of the hospital keep moving. 4. We have changed the dosing on the Warfarin. Please take what is listed on the medication list at discharge. 5. You have venous insufficiency and this makes your legs swell. The Nifedipine (Procardia) also makes the legs swell. In order to control the swelling we have been wrapping your legs with YVETTE wraps. I am writing a presc ription for a pair of JOBST calf compression stockings for you. You will need to take the prescription to [facility] [place] and they will measure you and order the stockings. These stockings have Velcro and they are much easier to get on than the whiet compression stockings we have in the hospital. You will put the stockinings on as soon as you get out of bed in the morning and wear them until you go to bed at night. 6. Good lucjenifer Marinelli. It has been a pleasure getting to know you and your family. If you have any questions after you leave rehab please do not hesitate to call me. OFFICE: [phone] CELL: [phone] NURSES STATION ON REHAB: [phone] Discharge Orders/Prescriptions Prescriptions: New acetaminophen 500 mg Tablet 1,000 mg PO Q8 Qty: 1 0RF losartan 50 mg tablet 50 mg PO .HS Qty: 30 0RF Rx Instructions: This is for blood pressure take 1 daily at bedtime tramadol 50 mg tablet 50 mg PO Q8H PRN (Reason: pain) Qty: 20 0RF Rx Instructions: 1 tab as needed every 8 hours for pain 4-10 warfarin 1 mg tablet See Rx Instructions .ROUTE .COMPLEX Qty: 100 0RF Rx Instructions: 3 tabs M,W,TH,F and SUN 4 tabs TU and SAT Continued omeprazole 20 mg capsule,delayed release(DR/EC) 20 mg PO DAILY 30 Days Qty: 60 Metamucil 3.4 gram/5.4 gram powder 1 tbsp PO DAILY Rx Instructions: mix into at least 8 oz of water or juice before administering metoprolol tartrate 100 MG tablet 100 mg PO BID Patient Comments: blood pressure simvastatin 20 MG tablet 20 mg PO QHS Patient Comments: cholesterol nifedipine 60 MG tablet extended release 60 mg PO DAILY Patient Comments: blood pressure vitamins A,C,B-ecge-mgrjei 1 EACH capsule 1 ea PO BID EyeProtect [id number] tablet 1 tab PO DAILY magnesium chloride 64 mg magnesium tablet 128 mg PO DAILY Discontinued warfarin [] 2 mg tablet 2 mg PO DAILY warfarin 4 mg tablet 4 mg PO DAILY Qty: 90 4RF Protocol: Dose Management Condition: Sunday Dose/Route: 2 mg Instruction: 0.5 x 4 mg tablets Condition: Sunday Dose/Route: 2 mg Instruction: 0.5 x 4 mg tablets Condition: Sunday Dose/Route: 2 mg Instruction: 0.5 x 4 mg tablets Condition: Sunday Dose/Route: 2 mg Instruction: 0.5 x 4 mg tablets Condition: Dose/Route: 4 mg Instruction: 1 x 4 mg tablet Condition: Sunday Dose/Route: 4 mg Instruction: 1 x 4 mg tablet Condition: Sunday Dose/Route: 2 mg Instruction: 0.5 x 4 mg tablets Protocol Text: Adjustment Start Date: 04/10/24 INR Value: 1.9 INR Date: 04/09/24 Recheck Date: 04/24/24 Referrals / Follow Up: Narda Preciado MD [Med Staff - Active Staff] - 05/14/24 1:00 pm Zulema Campbell DO [Primary Care Provider] - 05/13/24 2:30 pm Disposition Disposition (needs filled in before D/C Order can be placed): Home, Self Care
[2024-05-09 17:29] VITALS: BP 131/81; PULSE 56; RESP 16; TEMP 36.6; O2SAT 94
--- NOTE | 2024-05-09 17:46 | PCM.DC.SUM ---
Providers Date of Admission: 04/25/24 Date of Discharge: 05/11/24 Primary Care Physician: Dr. Zulema Campbell, DO none Reason For Visit: LEFT KNEE PAIN/ traumatic hemarthrosis Diagnosis Discharge Diagnosis (1) Debility: Status: Acute Code(s): R53.81 - Other malaise (2) Traumatic arthropathy, left knee: Status: Acute Code(s): M12.562 - Traumatic arthropathy, left knee (3) Hemarthrosis, left knee: Status: Acute Code(s): M25.062 - Hemarthrosis, left knee (4) Radiculopathy: Status: Chronic Code(s): M54.10 - Radiculopathy, site unspecified Qualifiers: Spinal region: lumbar Qualified Code(s): M54.16 - Radiculopathy, lumbar region Plan: RLE with R leg weakness (myelopathy) and R foot drop (5) Right foot drop: Status: Chronic Code(s): M21.371 - Foot drop, right foot Plan: Needs and AFO for the R leg post discharge form rehab (6) Right leg weakness: Status: Chronic Code(s): R29.898 - Other symptoms and signs involving the musculoskeletal system (7) Myelopathy: Status: Chronic Code(s): G95.9 - Disease of spinal cord, unspecified Plan: R leg (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 (9) Venous insufficiency: Status: Chronic Code(s): I87.2 - Venous insufficiency (chronic) (peripheral) (10) Uncontrolled hypertension: Status: Acute Code(s): I10 - Essential (primary) hypertension Plan: Losartan was added to nifedipine and metoprolol and blood pressure at discharge is at goal (11) Heme positive stool: Status: Acute Code(s): R19.5 - Other fecal abnormalities Plan 1. Discharge home on 05/11/2024 with outpatient physical therapy at [facility]. 2. Follow-up with Dr. Campbell on 05/13/2024. 3. Has a follow-up appointment scheduled with Dr. Basali for chronic pain management 4. will need a PT/INR in 1 week post DC. Warfarin dosing was changed. 5. will use a FWW any time he is ambulating. 6. has already purchased necessary DME Medications at Discharge Home Medications metoprolol tartrate 100 mg tablet 100 mg PO BID BP 07/22/13 nifedipine 60 mg tablet,extended release 60 mg PO DAILY BP 07/22/13 simvastatin 20 mg tablet 20 mg PO QHS CHOLESTEROL 07/22/13 vitamins A,C,A-ekbx-xvmzac 4,296 mcg-226 mg-90 mg capsule 1 ea PO BID EYE VITAMIN 10/19/17 psyllium husk 3.4 gram/5.4 gram oral powder (Metamucil) 1 tbsp PO DAILY Bowels 01/22/20 omeprazole 20 mg capsule,delayed release 20 mg PO DAILY GERD 30 days #60 caps 02/10/22 magnesium chloride 64 mg (magnesium chloride) tablet 128 mg PO DAILY supplement 04/25/24 vit A 7,160 unit-vit C 113 mg-vit E 100 wqsp-pmed-jrzwwa tablet (EyeProtect) 1 tab PO DAILY supplement 04/25/24 acetaminophen 500 mg tablet 1,000 mg (2 x 500 mg) PO Q8 #1 TAB 05/09/24 losartan 50 mg tablet 50 mg PO .HS #30 tabs 05/09/24 tramadol 50 mg tablet 50 mg PO Q8H PRN pain #20 tabs 05/09/24 warfarin 1 mg tablet See Rx Instructions .Route .COMPLEX #100 tabs 05/09/24 Hospital Course Operations None Procedures None Summary of Care Provided Hospital Course: KRISH NAIR, is a 78 YO M with a past medical history of hypertension, hyperlipidemia, atrial fibrillation, chronic anticoagulation with warfarin, history of colon cancer, diverticulosis, obesity, chronic venous insufficiency, lumbar radiculopathy, obstructive sleep apnea (refuses tx), 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 Plain XRAY showed OA with a small joint effusion. He had soft tissue swelling of the R ankle and foot and was diagnosed with knee and ankle sprain. He was referred for PT. He was doing much better and PT had advanced him to a cane. On 04/22/2024, while working with [facility] PT, he was doing 2 steps in the garage with a cane and his left leg would not support him and buckled. The physical therapist caught him and lowered him to the ground so he did not fall but, he did strike the left medial knee on the step. He has had a L TKA in the past. Plain x-ray of the left knee showed a joint effusion with no fracture or displacement of the prosthesis. He was unable to ambulate and was requiring moderate to max assist with bed mobility and max assist of 2 with sitting to standing. He was admitted to [facility] for pain control. The morning after admission nursing/therapy had to use a Nithya lift to get him out of bed. He was seen in consult by orthopedics who felt he had a hemarthrosis. The knee was not aspirated because the pt was therapeutic on Coumadin and the risk seemed to outweigh the benefit. His was not safe to go home. He was transferred to the acute inpt rehab unit on 04/25/24 for 3 hours of therapy daily to restore function/independence at or near his level prior to the injury to the left knee on 04/22/24. Prior to 04/22/24 he was ambulating with a FWW or a cane and he was independent with his ADL's. He lives at home with his . His told me that Krish had been on Gabapentin for sciatic. At one point he was prescribed 600 mg TID and she thinks he was taking extra doses to make him sleep. she told him it was making him crazy and she stopped the Gabapentin. He was complaining of pain in the right lower back and the right buttock at presentation to rehab. The pain radiated from the right buttock around to the right lateral hip area and then into the right lateral thigh, medial and lateral calf and into the foot. He had right foot drop and weakness of the right lower extremity when compared to the left. He was unable to lift his right leg off the bed. He had positive straight leg raising on the right. Sensation was intact to pinprick bilaterally. He had bilateral knee effusions, left greater than right. There was no bruising of either lower extremity. There was no redness of the knee joints and no significant increased warmth to touch. He was having difficulty flexing the left knee secondary to pain. He was able to lift the left leg off the bed and hold it for 5 seconds. He was started on scheduled Tylenol and scheduled Tramadol. He was also started on a 10 day Prednisone taper. He did not become drowsy on Tramadol and it was effective in relieving his pain. Prior to DC Tramadol was made PRN. He has been using it no more than 1-2 times daily and denies any significant RLE pain at [place]. There was no recurrence of pain when the Prednisone was discontinued after 10 days. He has myelopathy of the RLE and R foot drop. He was told this is not going to go away. He had an MRI of his lumbosacral spine done at [facility] recently and at L4-L5 there was a tiny right foraminal protrusion with slight right foraminal narrowing and mild spinal stenosis secondary to a shallow disc bulge. At L3-4 there was mild spinal stenosis with posterior element hypertrophy and at L2-L3 there was mild spinal stenosis with trace disc bulge and posterior element hypertrophy. He perseverates on what he will do if the pain comes back. He was referred to Dr. Preciado for chronic pain management. He may be a good candidate for epidurals in the future since he had such an excellent response but, chronic anticoagulation with warfarin complicates this. At the time of discharge Krish is independent with eating and he is supervision/set up for grooming, bathing and toileting. He is standby assist for toilet transfer and tub/shower transfer. He is independent with upper body dressing and requires only minimal assistance with lower body dressing. Strength in his lower extremities has improved and he is able to do 6 sit to stands in 30 seconds using the bilateral upper extremities to push up. He has ambulated up to 262 feet with a front wheeled walker at close standby assist. His left knee sometimes wilian and this is why he is close SBA. He is walking with a reciprocal pattern and with good yonathan. He will be getting OP PT at [facility] post [place]. We stressed the importance of keeping active and moving to prevent decline at home. We have not had to use Gabapentin for pain control. BP was above goal while on rehab and Losartan was added to his drug regimen. He has tolerated this with no adverse side effects. PT/INR was subtherapeutic on the Warfarin regimen he was on at admission to rehab. The dose was changed to 3 mg on Sunday, Sunday, , Sunday and Sunday and 4 mg on Sunday and Sunday. I believe he was following up for monitoring of the PT/INR in Coumadin clinic and he sees Dr. Romero as an OP. INR 1 days prior to DC was 2.2. Weight / BMI Weight Weight: 217 lb 9.54 oz Body Mass Index (BMI) 31.1 ABG / Lab / Microbiology Data 05/09/24 06:40 05/09/24 06:40 Laboratory: Laboratory Results - last 24 hr 05/09/24 06:40: WBC 7.1, RBC 4.35 L, Hgb 12.8 L, Hct 39.9 L, MCV 91.7, MCH 29.4, MCHC 32.1, RDW Std Deviation 52.7 H, RDW Coeff of Naheed 15.6 H, Plt Count 295, MPV 8.9, Immature Gran % (Auto) 1.700 H, Neut % (Auto) 67.5, Lymph % (Auto) 18.2 L, Dunn % (Auto) 10.4 H, Eos % (Auto) 1.5, Baso % (Auto) 0.7, Absolute Neuts (auto) 4.8, Absolute Lymphs (auto) 1.30, Nucleated RBC % 0, Sodium 136, Potassium 3.6, Chloride 106, Carbon Dioxide 26.0, Anion Gap 4 L, BUN 12, Creatinine 0.70, Estim Creat Clear Calc 91.09, Est GFR (MDRD) Af Amer 139, Est GFR (MDRD) Non-Af 115, BUN/Creatinine Ratio 17.0, Glucose 102, Calcium 8.6, Phosphorus 2.9, Magnesium 2.0, Total Bilirubin 0.50, AST 12 L, ALT 25, Alkaline Phosphatase 56, Total Protein 5.8 L, Albumin 2.6 L, Globulin 3.2, Albumin/Globulin Ratio 0.8 L Microbiology: Microbiology 05/03/24 08:22 Stool Stool Occult Blood (MADAY) - Final Occult Blood Positive D/C Instructions Discharge Diet: Low fat / Low cholesterol Weight Bearing Status: Full weight bearing Keep extremity elevated above heart level: Legs Additional Activity Instructions: Keeping the legs elevated when you are sitting in a chair will help control the swelling in the legs. Call your doctor if you observe: Fever of 101 or Higher, Inability to urinate, Shortness of breath, Dizziness, Chest pain, Increased palpitations (irregular heartbeat), Calf discomfort and Uncontrolled pain Pending Tests Upon Discharge: none Please Follow Up With: Dr. Zulema Campbell When: You have appts scheduled with Dr. Campbell and with Dr. Preciado (the pain management doctor). They are listed later in this document. Meaningful Use Info Meaningful Use Meaningful Use Diagnoses (Choose all that apply): None applicable Ischemic Stroke Statin Dosing Therapy Reference: STATIN DOSE THERAPY REFERENCE: * Patients > 75 years receive moderate or high dose statin therapy. * Patients 75 years or YOUNGER should receive HIGH intensity statin dose unless contraindicated. You will be required to document reason for non-treatment if statin daily dose does not meet guidelines. HIGH DOSE STATIN THERAPY DAILY Atorvastatin > than or = to 40 mg Rosuvastatin > than or = to 20 mg Amlodipine + Atorvastatin > than or = to 2.5/40 mg Ezetimibe + Simvastatin 10/80 mg Simvastatin 80mg Discharge Plan Admission Admit Date/Time: 04/25/24 17:37 Primary Reason for Your Visit: Debility due to a fall with L knee hemarthrosis Attending Provider: Rubina Chaidez Primary Care Provider: Zulema Campbell Instructions Patient Instructions: CVI, ED Chronic Pain, ED Foot Drop Additional Instructions / Restrictions: 1. 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 This is due to arthritis in your back with compression of the nerves that come out of the back and go into your R leg. If you fall you cause inflammation in the back and this increases swelling which puts pressure on the nerve root and increases the pain. You have weakness in the R leg and you have foot drop. This is not going to go away.....you are going to have to learn to live with it. You should ALWAYS use a walker when you are ambulating. You have better balance with a walker. You also need to have a brace for the R lower leg/foot to keep you from dragging your toe. Sometimes people who have to wear a brace need to buy 2 different sizes of shoes........the one on the R may need to be a size bigger or wider to accommodate the brace. I HIGHLY RECOMMEND you avoid using medications that cause drowsiness/lightheadedness/confusion because these things contribute to increased falls. I am referring you to a pain management doctor.......his name is Dr. Preciado. He is very good at what he does. Take your medications exactly as prescribed and do not take extra........taking too much of a medication will get you into trouble. 2. As we get older and develop arthritis it is important to KEEP MOVING. If you sit for longer than 1 hour without getting up to take a walk and move around you will get stiff and this will make pain worse so, do NOT sit for longer than 1 hour in that recliner without getting up and taking a walk around the house. I think it would be an excellent idea for you to have a membership to [employer].......so you can go workout and exercise to maintain your strength and flexibility. MOVE IT OR LOSE IT! 3. You did a real good job on rehab and worked hard. You have come a long way. If you want to stay out of the hospital keep moving. 4. We have changed the dosing on the Warfarin. Please take what is listed on the medication list at discharge. 5. You have venous insufficiency and this makes your legs swell. The Nifedipine (Procardia) also makes the legs swell. In order to control the swelling we have been wrapping your legs with YVETTE wraps. I am writing a prescription for a pair of JOBST calf compression stockings for you. You will need to take the prescription to [facility] and they will measure you and order the stockings. These stockings have Velcro and they are much easier to get on than the whiet compression stockings we have in the hospital. You will put the stockinings on as soon as you get out of bed in the morning and wear them until you go to bed at night. 6. Good luck Krish. It has been a pleasure getting to know you and your family. If you have any questions after you leave rehab please do not hesitate to call me. OFFICE: [phone] CELL: [phone] NURSES STATION ON REHAB: [phone] Discharge Orders/Prescriptions Prescriptions: New acetaminophen 500 mg Tablet 1,000 mg PO Q8 Qty: 1 0RF losartan 50 mg tablet 50 mg PO .HS Qty: 30 0RF Rx Instructions: This is for blood pressure take 1 daily at bedtime tramadol 50 mg tablet 50 mg PO Q8H PRN (Reason: pain) Qty: 20 0RF Rx Instructions: 1 tab as needed every 8 hours for pain 4-10 warfarin 1 mg tablet See Rx Instructions .ROUTE .COMPLEX Qty: 100 0RF Rx Instructions: 3 tabs M,W,TH,F and SUN 4 tabs TU and SAT Continued omeprazole 20 mg capsule,delayed release(DR/EC) 20 mg PO DAILY 30 Days Qty: 60 Metamucil 3.4 gram/5.4 gram powder 1 tbsp PO DAILY Rx Instructions: mix into at least 8 oz of water or juice before administering metoprolol tartrate 100 MG tablet 100 mg PO BID Patient Comments: blood pressure simvastatin 20 MG tablet 20 mg PO QHS Patient Comments: cholesterol nifedipine 60 MG tablet extended release 60 mg PO DAILY Patient Comments: blood pressure vitamins A,C,S-llui-mgcbpn 1 EACH capsule 1 ea PO BID EyeProtect [id number] iaao-nu-ebtx tablet 1 tab PO DAILY magnesium chloride 64 mg magnesium tablet 128 mg PO DAILY Discontinued warfarin [] 2 mg tablet 2 mg PO DAILY warfarin 4 mg tablet 4 mg PO DAILY Qty: 90 4RF Protocol: Dose Management Condition: Sunday Dose/Route: 2 mg Instruction: 0.5 x 4 mg tablets Condition: Sunday Dose/Route: 2 mg Instruction: 0.5 x 4 mg tablets Condition: Sunday Dose/Route: 2 mg Instruction: 0.5 x 4 mg tablets Condition: Sunday Dose/Route: 2 mg Instruction: 0.5 x 4 mg tablets Condition: Dose/Route: 4 mg Instruction: 1 x 4 mg tablet Condition: Sunday Dose/Route: 4 mg Instruction: 1 x 4 mg tablet Condition: Sunday Dose/Route: 2 mg Instruction: 0.5 x 4 mg tablets Protocol Text: Adjustment Start Date: 04/10/24 INR Value: 1.9 INR Date: 04/09/24 Recheck Date: 04/24/24 Referrals / Follow Up: Narda Preciado MD [Med Staff - Active Staff] - 05/14/24 1:00 pm Zulema Campbell DO [Primary Care Provider] - 05/13/24 2:30 pm Disposition Disposition (needs filled in before D/C Order can be placed): Home, Self Care Charges/Coding Visit Charges Inpatient E&M: 06004 Disch Hosp >30min
[2024-05-09] MEDS: traMADol 50 MG Tablet PO (21:16)
[2024-05-09 21:17] VITALS: BP 130/80; PULSE 62
[2024-05-09] MEDS: Atorvastatin Calcium 10 MG Tablet PO (21:17)
[2024-05-09] MEDS: Losartan Potassium 50 MG Tablet PO (21:17)
[2024-05-10] MEDS: Acetaminophen 500 MG Tablet 1000 MG PO ×3 (05:03→21:08)
[2024-05-10] MEDS: Arthritis Pain Compound 60 CLICK TUBE TOPICAL ×3 (05:03→20:28)
[2024-05-10 05:05] VITALS: BP 160/88; PULSE 50; RESP 16; TEMP 36.7; O2SAT 96
[2024-05-10 06:58] LABS: International Normalized Ratio 2.2; Prothrombin Time (Protime)PT. 24.6 SECONDS (11.7-14.9)
[2024-05-10 08:58] VITALS: BP 117/84; PULSE 55
[2024-05-10] MEDS: Psyllium 1 PACKET PO (08:58)
[2024-05-10] MEDS: Metoprolol Tartrate 100 MG Tablet PO ×2 (08:58→20:29)
[2024-05-10] MEDS: Pantoprazole Sodium 20 MG Tablet PO (08:58)
[2024-05-10] MEDS: Multivitamin (Healthy Eyes) Capsule 1 CAP PO (08:58)
[2024-05-10] MEDS: NIFEdipine 60 MG Tablet PO (08:58)
[2024-05-10] MEDS: Magnesium Chloride 64 MG Delay Rel.Tablet 128 MG PO (08:59)
[2024-05-10 17:43] VITALS: BP 147/87; PULSE 56; RESP 17; TEMP 36.6; O2SAT 96
[2024-05-10 20:27] VITALS: BP 121/58; PULSE 63
[2024-05-10 20:29] VITALS: BP 121/58; PULSE 63
[2024-05-10] MEDS: Losartan Potassium 50 MG Tablet PO (20:29)
[2024-05-10] MEDS: Atorvastatin Calcium 10 MG Tablet PO (20:29)
[2024-05-10 21:38] VITALS: PULSE 63; RESP 15; O2SAT 94
[2024-05-11 05:08] VITALS: BP 139/80; PULSE 59; RESP 16; TEMP 36.9; O2SAT 97
[2024-05-11] MEDS: Acetaminophen 500 MG Tablet 1000 MG PO (05:12)
[2024-05-11] MEDS: Arthritis Pain Compound 60 CLICK TUBE TOPICAL (05:12)
[2024-05-11 08:12] VITALS: PULSE 60
[2024-05-11] MEDS: Metoprolol Tartrate 100 MG Tablet PO (08:12)
[2024-05-11] MEDS: Psyllium 1 PACKET PO (08:12)
[2024-05-11] MEDS: traMADol 50 MG Tablet PO (08:12)
[2024-05-11] MEDS: Pantoprazole Sodium 20 MG Tablet PO (08:13)
[2024-05-11] MEDS: Magnesium Chloride 64 MG Delay Rel.Tablet 128 MG PO (08:13)
[2024-05-11] MEDS: Multivitamin (Healthy Eyes) Capsule 1 CAP PO (08:13)
[2024-05-11] MEDS: NIFEdipine 60 MG Tablet PO (08:14)
--- NOTE | 2024-05-11 11:30 | NURSING ---
Discharge to home and and patient verbalized understanding to dc instructions.
== END 2024-05-11 11:30 | disposition home or self-care (01) | DRG 949 ==
PROVIDERS: Admitting Provider Internal Medicine; Referring Provider Internal Medicine; Visit Provider Internal Medicine
DX: S83.92XD Sprain of unspecified site of left knee, subsequent encounter (principal); G95.9 Disease of spinal cord, unspecified; I48.11 Longstanding persistent atrial fibrillation; E66.9 Obesity, unspecified; E78.00 Pure hypercholesterolemia, unspecified; I10 Essential (primary) hypertension; M54.16 Radiculopathy, lumbar region; I87.2 Venous insufficiency (chronic) (peripheral); K21.9 Gastro-esophageal reflux disease without esophagitis; M48.061 Spinal stenosis, lumbar region without neurogenic claudication; G47.33 Obstructive sleep apnea (adult) (pediatric); M21.371 Foot drop, right foot; R19.5 Other fecal abnormalities; W19.XXXD Unspecified fall, subsequent encounter; M54.30 Sciatica, unspecified side; M25.461 Effusion, right knee; M25.462 Effusion, left knee; Z68.32 Body mass index [BMI] 32.0-32.9, adult; Z79.01 Long term (current) use of anticoagulants; Z87.891 Personal history of nicotine dependence; Z96.652 Presence of left artificial knee joint
CPT/HCPCS: 36415; 80048; 80053; 80329; 82274; 82306; 83036; 83735; 84100; 85014; 85018; 85025; 85610; 96125; 97110; 97116; 97162; 97166; 97530; 97535; G0480

== ENCOUNTER 2024-05-19 11:41 | Outpatient (RCR) | payer MEDICARE, BC, SELFPAY ==
[2024-03-26 20:45] VITALS: BMI 33.5
--- NOTE | 2024-05-19 12:05 | RAD_ITS ---
STUDY: X-RAY - LUMBAR SPINE REASON FOR EXAM: Male, 79 years old. DDD TECHNIQUE: 2 view(s) of the lumbar spine were obtained. COMPARISON: None FINDINGS: Normal lumbar lordosis. There is no substantial scoliosis. There is a normal alignment of the vertebrae. There is diffuse demineralization with multi-level endplate spondylosis. Normal disc space heights. There is no demonstrated fracture. There is atherosclerotic calcification of the abdominal aorta without a demonstrated aneurysm. RAD/Lumbar Spine 2 or 3 Views IMPRESSION: Degenerative changes of the spine, as detailed above. Electronically Signed: Akbar Waters MD at 22:02 EDT ,
[2024-05-19 12:30] LABS: International Normalized Ratio 2.1; Prothrombin Time (Protime)PT. 23.7 SECONDS (11.7-14.9)
== END 2024-05-19 18:00 | disposition home or self-care (01) ==
LOC: LAB 11:41
PROVIDERS: Referring Provider Internal Medicine Cardiovascular Disease; Visit Provider Internal Medicine Cardiovascular Disease
DX: I48.11 Longstanding persistent atrial fibrillation (principal); Z79.01 Long term (current) use of anticoagulants; M51.36 Other intervertebral disc degeneration, lumbar region
CPT/HCPCS: 36415; 72100; 85610

== ENCOUNTER 2024-06-16 11:20 | Outpatient (RCR) | payer MEDICARE, BC, SELFPAY ==
[2024-05-27 03:39] VITALS: BMI 33.5
[2024-06-16 12:45] LABS: International Normalized Ratio 1.8; Prothrombin Time (Protime)PT. 20.7 SECONDS (11.7-14.9)
== END 2024-06-16 18:00 | disposition home or self-care (01) ==
LOC: LAB 11:20
PROVIDERS: Referring Provider Internal Medicine Cardiovascular Disease; Visit Provider Internal Medicine Cardiovascular Disease
DX: I48.11 Longstanding persistent atrial fibrillation (principal); Z79.01 Long term (current) use of anticoagulants
CPT/HCPCS: 36415; 85610

== ENCOUNTER → 2024-07-12 | Outpatient (CLI) | payer MEDICARE, BC, SELFPAY ==
--- NOTE | 2024-07-12 08:48 | MRI_ITS ---
EXAM: MR LUMBAR SPINE WITHOUT INTRAVENOUS CONTRAST CLINICAL INDICATION: RADICULOPATHY TECHNIQUE: Multiplanar and multisequence MR images of the lumbar spine without intravenous contrast. COMPARISON: No relevant prior studies available. FINDINGS: VERTEBRAE: Normal. Vertebral body heights are preserved. Normal vertebral bodies and posterior elements. No spondylolisthesis. There is preservation of the normal lumbar lordosis. SPINAL CORD: Normal. Normal position and signal intensity of the conus medullaris. SOFT TISSUES: Normal. DISCS/SPINAL CANAL/NEURAL FORAMINA: L1-L2: Normal disc height and morphology. Anterior osteophytosis. Annular fissures present. Normal spinal canal and lateral recesses. Normal neuroforamina. L2-L3: Normal disc height and morphology. Normal spinal canal and lateral recesses. Normal neuroforamina. L3-L4: Normal disc height and morphology. Mild facet arthropathy. Normal spinal canal and lateral recesses. Normal neuroforamina. L4-L5: Normal disc height and morphology. Right posterolateral disc protrusion causes mild narrowing of the right neural foramen. Intact left neural foramen. Normal spinal canal and lateral recesses. L5-S1: Normal. Normal disc height and morphology. Normal spinal canal and lateral recesses. Normal neuroforamina. MRI/Spine Lumbar (Routine) IMPRESSION: Right posterior lateral L4 disc protrusion causing mild narrowing of the right neural foramen. Intact spinal canal.. Electronically Signed: Jose Mcallister MD at 9:07 EST ,
== END | disposition home or self-care (01) ==
LOC: MRI 08:18
PROVIDERS: Referring Provider Anesthesiology Pain Medicine; Visit Provider Anesthesiology Pain Medicine
DX: M54.16 Radiculopathy, lumbar region (principal)
CPT/HCPCS: 72148

== ENCOUNTER 2024-07-15 10:49 | Outpatient (RCR) | payer MEDICARE, BC, SELFPAY ==
[2024-06-26 21:03] VITALS: BMI 33.5
[2024-07-01 11:21] LABS: International Normalized Ratio 1.2
[2024-07-08 11:24] LABS: International Normalized Ratio 1.5; Prothrombin Time (Protime)PT. 18.1 SECONDS (11.7-14.9)
[2024-07-15 12:20] LABS: International Normalized Ratio 2.5; Prothrombin Time (Protime)PT. 27.1 SECONDS (11.7-14.9)
== END 2024-07-26 18:00 | disposition home or self-care (01) ==
LOC: LAB 10:49
PROVIDERS: Referring Provider Internal Medicine Cardiovascular Disease; Visit Provider Internal Medicine Cardiovascular Disease
DX: I48.11 Longstanding persistent atrial fibrillation (principal); Z79.01 Long term (current) use of anticoagulants
CPT/HCPCS: 36415; 85610

== ENCOUNTER 2024-07-29 09:35 | Outpatient (RCR) | payer MEDICARE, BC, SELFPAY ==
[2024-07-26 22:47] VITALS: BMI 33.5
[2024-07-29 10:12] LABS: Prothrombin Time (Protime)PT. 22.3 SECONDS (11.7-14.9)
[2024-07-29 10:35] LABS: AST(SGOT) 15 U/L (15-37); Alanine Aminotransfer ALT/SGPT 18 U/L (16-61); Albumin, Serum 3.3 g/dL (3.2-5.0); Alkaline Phosphatase 58 U/L (45-117); Bilirubin, Direct 0.27 mg/dL (0.00-0.30); Cholesterol 174 mg/dL (200); Globulin 3.6 g/dL (2.2-4.2); High Density Lipoprotein 55 mg/dL; Protein, Total 6.9 g/dL (6.4-8.2); Triglycerides 169 mg/dL; Very Low Density Lipoprotein 34 mg/dL (5-40)
== END 2024-07-29 18:00 | disposition home or self-care (01) ==
LOC: LAB 09:35
PROVIDERS: Nurse Practitioner Gerontology; Referring Provider Internal Medicine Cardiovascular Disease; Visit Provider Internal Medicine Cardiovascular Disease
DX: I48.11 Longstanding persistent atrial fibrillation (principal); Z79.01 Long term (current) use of anticoagulants; E78.00 Pure hypercholesterolemia, unspecified
CPT/HCPCS: 36415; 80061; 80076; 85610

== ENCOUNTER 2024-09-18 07:31 | Outpatient (RCR) | payer MEDICARE, BC, SELFPAY ==
[2024-08-27 04:10] VITALS: BMI 33.5
[2024-09-02 11:13] LABS: International Normalized Ratio 1.6; Prothrombin Time (Protime)PT. 19.6 SECONDS (11.7-14.9)
[2024-09-18 08:32] LABS: International Normalized Ratio 1.7; Prothrombin Time (Protime)PT. 20.7 SECONDS (11.7-14.9)
== END 2024-09-18 18:00 | disposition home or self-care (01) ==
LOC: LAB 07:31
PROVIDERS: Referring Provider Internal Medicine Cardiovascular Disease; Visit Provider Internal Medicine Cardiovascular Disease
DX: I48.11 Longstanding persistent atrial fibrillation (principal); Z79.01 Long term (current) use of anticoagulants
CPT/HCPCS: 36415; 85610

== ENCOUNTER 2024-10-21 10:19 | Outpatient (RCR) | payer MEDICARE, BC, SELFPAY ==
[2024-09-26 21:22] VITALS: BMI 33.5
[2024-09-30 09:06] LABS: International Normalized Ratio 2.1; Prothrombin Time (Protime)PT. 23.8 SECONDS (11.7-14.9)
[2024-10-21 11:17] LABS: International Normalized Ratio 1.8; Prothrombin Time (Protime)PT. 21.4 SECONDS (11.7-14.9)
== END 2024-10-24 18:00 | disposition home or self-care (01) ==
LOC: LAB 10:19
PROVIDERS: Referring Provider Internal Medicine Cardiovascular Disease; Visit Provider Internal Medicine Cardiovascular Disease
DX: I48.11 Longstanding persistent atrial fibrillation (principal); Z79.01 Long term (current) use of anticoagulants
CPT/HCPCS: 36415; 85610

== ENCOUNTER 2024-10-30 09:30 | Outpatient (RCR) | payer MEDICARE, BC, SELFPAY ==
--- NOTE | 2024-05-14 12:19 | HP.PTEVAL ---
Patient's Visit Information Visit Information Visit Information: KRISH NAIR is a 79 year old M referred to Physical Therapy by Dr. Rubina Chaidez DO with a diagnosis of RIGHT KNEE PAIN ,SPRAIN. Date of Evaluation: 05/14/24 Physical Therapist: Kurtis Boggs, PT, Cert MDT, OCS Visit Plan Frequency: 2x /Week Duration: 4 Weeks Plan: PT INTERVENTIONS GAIT AND BALANCE TRAINING , BLE STRENGTHENING , ENDURANCE PROGRAM AND FUNCTIONAL STRENGTHENING Subjective Subjective: This 79 y/o male physical therapy presents to right knee pain .Patient developed sciatica pain 2 months ago fell landed on knee and leg. Patient was admitted to ER x-rays knee . Patient was getting C PT 04/22/24 working on steps and fell again this admitted to [facility] then transferred to Rehab . 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 Patient was d/c to home 05/11/24. Patient has drop foot. Patient plans to get jane management from sciatica pain.Patient has pain right lower leg and hip. Patient has limitations with walking and ADLS. Patient lives in 1 story home 2setps no rail. Walking on shower with shower chair. Patient is able to dress self needs help with shoes. Patient c/o paresthesia/tingling lower leg. Patient has limitations with ADLS and housework tasks . Patient has limitations with endurance. Patient condition affects QOL and function. Patient has multiple comorbities to influence condition. Patient goals to get stronger. SOCIAL: Pain Right Lower Extremity: Pain Intensity (Out of 10): 3 Pain Intensity Range: 10 Objective Objective: POSTURE: mild forward posture hips/flexed /trunk flexed GAIT: Ambulates with fww mild forward posture hip/knees flexed slow yonathan 150 ft with supervision EDEMA: 1+ pitted BLE lower leg BALANCE: fair with fww MMT: ( peak force) quads right 0 ,left 16.1 ,hamstrings right 4.9 ,left 15.1 ,right hip flexion 0 ,left 12.2 AROM: supine knee flexion right 0-115 ,left 0-120 Balance/Special Test Scores CATSIB Score (Max score 120 seconds): 50 Lower Extremity Functional Score: 17 Goals Goal 1:: Patient to be I with HEP strengthening Goal Time Frame: 4-6 Weeks Goal 2:: Patient to improve peak force quads/hams/hip by 5-10 # to improve function and strength. Goal Time Frame: 4-6 Weeks Goal 3:: Patient to improve ability to walk further distances 300 ft with MOD with fww Goal Time Frame: 6-8 Weeks Goal 4:: Patient to improve CATSIBE by 5 points to improve balance and decrease risk of falls Goal Time Frame: 4-6 Weeks Goal 5:: Patient to improve LFES score by 5 points to improve QOL and function Goal Time Frame: 4-6 Weeks Rehabilitation Potential Physical Therapy Diagnosis: Patient has multiple comorbities to influence condition along with decrease gait ,balance ,weakness RLE causes deficits with ADLS and function thus benefit from skilled PT. Rehabilitation Potential: Good Anticipated Interventions Patient/Client Instruction: Educate patient on: Condition and Plan of Care For the Purpose of:: To decrease pain, To increase ROM, To improve muscle performance and motor function, To improve ability to perform ADL's, To increase tolerance to activity/condition/position, To improve ability of physical actions for home/community/work/leisure, To improve gait and locomotor functions, To increase flexibility/ROM, To improve endurance, To improve balance, To improve safety with gait and To improve tolerance to ADL's Therapeutic Exercise to Include: Strength training, Endurance training, Balance training, Flexibilty training, Gait and locomotor training and Active ROM For the Purpose of:: To increase ROM, To improve muscle performance and motor function, To improve ability to perform ADL's, To increase tolerance to activity/condition/position, To improve ability of physical actions for home/community/work/leisure, To improve gait and locomotor functions, To increase flexibility/ROM, To improve endurance, To improve balance, To improve safety with gait and To reduce risk of recurrence Text: Thank you for the opportunity to evaluate your patient. For Medicare and Medicare HMO plans, please review the plan of care and approve it. It will need to be FAXED BACK to us at [phone] for Medicare purposes. For Medicare only, by signing this I certify the plan of care. Please let me know if there are questions or concerns regarding this plan of care. Physician Signature: Date:
--- NOTE | 2024-06-12 10:52 | HP.PTREVAL ---
Re-Evaluation Intro: Dr. Rubina Chaidez, DO, It has been my pleasure to treat KRISH NAIR over the last 9 visits for RIGHT KNEE PAIN ,SPRAIN. Please see the progress note below for an update on the physical therapy plan of care! Subjective Subjective: Doing better overall Still tingling in foot Doing ex's at home Objective Objective/Function: * Patient will cont to benefit from skilled PT with patient making progress with strength and decrease pain but patient continues o have weakness right leg * POSTURE: mild forward posture hips/flexed /trunk flexed GAIT: Ambulates with fww mild forward posture hip/knees flexed slow yonathan 150 ft with supervision /mod I EDEMA: 1+ pitted BLE lower leg BALANCE: fair with fww MMT: ( peak force) quads right 17.1 ,left 27.1 ,hamstrings right 17.1 ,left 25.1 ,right hip flexion 4.1 ,left 20.2 AROM: supine knee flexion right 0-115 ,left 0-120 Plan Plan Plan: PT INTERVENTIONS GAIT AND BALANCE TRAINING , BLE STRENGTHENING , ENDURANCE PROGRAM AND FUNCTIONAL STRENGTHENING Balance/Gait/Functional tests Balance/Special Test Scores CATSIB Score (Max score 120 seconds): 50 Lower Extremity Functional Score: 18 Goals Goals Goal 1:: Patient to be I with HEP strengthening Goal Time Frame: 4-6 Weeks Goal Progress: Progressing Goal 2:: Patient to improve peak force quads/hams/hip by 5-10 # to improve function and strength.( new goal) Goal Time Frame: 4-6 Weeks Goal 3:: Patient to improve ability to walk further distances 300 ft with MOD I with fww Goal Time Frame: 6-8 Weeks Goal Progress: Progressing Goal 4:: Patient to improve CATSIBE by 5 points to improve balance and decrease risk of falls Goal Time Frame: 4-6 Weeks Goal Progress: Progressing Goal 5:: Patient to improve LFES score by 5 points to improve QOL and function( new goal) Goal Time Frame: 4-6 Weeks Anticipated Interventions Anticipated Interventions Patient/Client Instruction: Educate patient on: Condition and Plan of Care For the Purpose of:: To decrease pain, To increase ROM, To improve muscle performance and motor function, To improve ability to perform ADL's, To increase tolerance to activity/condition/position, To improve ability of physical actions for home/community/work/leisure, To improve gait and locomotor functions, To increase flexibility/ROM, To improve endurance, To improve balance, To improve safety with gait and To improve tolerance to ADL's Therapeutic Exercise to Include: Strength training, Endurance training, Balance training, Flexibilty training, Gait and locomotor training and Active ROM For the Purpose of:: To increase ROM, To improve muscle performance and motor function, To improve ability to perform ADL's, To increase tolerance to activity/condition/position, To improve ability of physical actions for home/community/work/leisure, To improve gait and locomotor functions, To increase flexibility/ROM, To improve endurance, To improve balance, To improve safety with gait and To reduce risk of recurrence Re-Evaluation Ending Re-evaluation ending: Please do not hesitate to contact me at [phone] by phone or if you have questions or concerns regarding this new plan of care! Sincerely, Kurtis Boggs, PT, Cert MDT, OCS
--- NOTE | 2024-07-17 11:00 | HP.PTREVAL_ITS ---
Re-Evaluation Intro: Dr. Rubina Chaidez, DO, It has been my pleasure to treat KRISH NAIR over the last 17 visits for RIGHT KNEE PAIN ,SPRAIN. Please see the progress note below for an update on the physical therapy plan of care! Subjective Subjective: Doing better overall ,but conts to get stronger right ankle Patient plans to see pain management Patient walking further distances with walker ,occasional doesn't use walker Objective Objective/Function: * Patient will cont to benefit from skilled PT with patient making progress with strength and decrease pain and ambulating with fww further distances but patient continues to have weakness right leg * POSTURE: mild forward posture hips/flexed /trunk flexed GAIT: Ambulates with fww mild forward posture hip/knees flexed slow yonathan 150 ft with supervision /mod I EDEMA: 1+ pitted BLE lower leg BALANCE: fair with fww MMT: ( peak force) quads right 16.1 ,left 42.8 ,hamstrings right 22.1 ,left 25.1 ,right hip flexion 9.1 ,left 20.2 ,dorsiflexion 2/5 AROM: supine knee flexion right 0-115 ,left 0-120 Plan Plan Plan: PT INTERVENTIONS GAIT AND BALANCE TRAINING , BLE STRENGTHENING , ENDURANCE PROGRAM AND FUNCTIONAL STRENGTHENING Balance/Gait/Functional tests Balance/Special Test Scores CATSIB Score (Max score 120 seconds): 55 Lower Extremity Functional Score: 19 Goals Goals Goal 1:: Patient to be I with HEP strengthening Goal Time Frame: 4-6 Weeks Goal Progress: Progressing Goal 2:: Patient to improve peak force quads/hams/hip by 5-10 # to improve function and strength.( new goal) Goal Time Frame: 4-6 Weeks Goal Progress: Progressing Goal 3:: Patient to improve ability to walk further distances 300 ft with MOD I with fww Goal Time Frame: 6-8 Weeks Goal Progress: Progressing Goal 4:: Patient to improve CATSIBE by 5 points to improve balance and decrease risk of falls Goal Time Frame: 4-6 Weeks Goal Progress: Progressing Goal 5:: Patient to improve LFES score by 5 points to improve QOL and function( new goal) Goal Time Frame: 4-6 Weeks Goal Progress: Progressing Anticipated Interventions Anticipated Interventions Patient/Client Instruction: Educate patient on: Condition and Plan of Care For the Purpose of:: To decrease pain, To increase ROM, To improve muscle performance and motor function, To improve ability to perform ADL's, To increase tolerance to activity/condition/position, To improve ability of physical actions for home/community/work/leisure, To improve gait and locomotor functions, To increase flexibility/ROM, To improve endurance, To improve balance, To improve safety with gait and To improve tolerance to ADL's Therapeutic Exercise to Include: Strength training, Endurance training, Balance training, Flexibilty training, Gait and locomotor training and Active ROM For the Purpose of:: To increase ROM, To improve muscle performance and motor function, To improve ability to perform ADL's, To increase tolerance to activity/condition/position, To improve ability of physical actions for home/community/work/leisure, To improve gait and locomotor functions, To increa se flexibility/ROM, To improve endurance, To improve balance, To improve safety with gait and To reduce risk of recurrence Re-Evaluation Ending Re-evaluation ending: Please do not hesitate to contact me at [phone] by phone or if you have questions or concerns regarding this new plan of care! Sincerely, Kurtis Boggs, PT, Cert MDT, OCS
--- NOTE | 2024-08-21 11:22 | HP.PTREVAL ---
Re-Evaluation Intro: Dr. Rubina Chaidez, DO, It has been my pleasure to treat KRISH NAIR over the last 23 visits for RIGHT KNEE PAIN ,SPRAIN. Please see the progress note below for an update on the physical therapy plan of care! Subjective Subjective: Doing well .. able to walk in PT dept Patient had 2 epidural injections in back did not help ..PT does better Objective Objective/Function: * Patient will cont to benefit from skilled PT with patient making progress with strength and decrease pain and ambulating with transition to cane and goals adjusted with adding FGA goals with goals updat but patient continues to have weakness right leg * POSTURE: mild forward posture hips/flexed /trunk flexed GAIT: Ambulates with fww mild forward posture hip/knees flexed slow yonathan 150 ft with supervision /mod I EDEMA: 1+ pitted LLE lower leg ,RLE 2+ BALANCE: GOOD - no cane MMT: ( peak force) quads right 26.6 ,left 42.8 ,hamstrings right 27.1 ,left 34.1 ,right hip flexion 14.2 ,left 20.2 ,dorsiflexion 9.2 AROM: supine knee flexion right 0-115 ,left 0-120 Plan Plan Plan: PT INTERVENTIONS GAIT AND BALANCE TRAINING , BLE STRENGTHENING , ENDURANCE PROGRAM AND FUNCTIONAL STRENGTHENING Balance/Gait/Functional tests Balance/Special Test Scores CATSIB Score (Max score 120 seconds): 75 Lower Extremity Functional Score: 27 Goals Goals Goal 1:: Patient to be I with HEP strengthening Goal Time Frame: 4-6 Weeks Goal Progress: Progressing Goal 2:: Patient to improve peak force quads/hams/hip by 5-10 # to improve function and strength.( new goal) Goal Time Frame: 4-6 Weeks Goal Progress: Progressing Goal 3:: Patient to improve ability to walk further distances 300 ft with MOD I with Goal Time Frame: 6-8 Weeks Goal Progress: Progressing Goal 4:: Patient to improve CATSIBE by 5 points to improve balance and decrease risk of falls Goal Time Frame: 4-6 Weeks Goal Progress: Progressing Goal 5:: Patient to improve LFES score by 5 points to improve QOL and function( new goal) Goal Time Frame: 4-6 Weeks Goal Progress: Progressing Anticipated Interventions Anticipated Interventions Patient/Client Instruction: Educate patient on: Condition and Plan of Care For the Purpose of:: To decrease pain, To increase ROM, To improve muscle performance and motor function, To improve ability to perform ADL's, To increase tolerance to activity/condition/position, To improve ability of physical actions for home/community/work/leisure, To improve gait and locomotor functions, To increase flexibility/ROM, To improve endurance, To improve balance, To improve safety with gait and To improve tolerance to ADL's Therapeutic Exercise to Include: Strength training, Endurance training, Balance training, Flexibilty training, Gait and locomotor training and Active ROM For the Purpose of:: To increase ROM, To improve muscle performance and motor function, To improve ability to perform ADL's, To increase tolerance to activity/condition/position, To improve ability of physical actions for home/community/work/leisure, To improve gait and locomotor functions, To increase flexibility/ROM, To improve endurance, To improve balance, To improve safety with gait and To reduce risk of recurrence Re-Evaluation Ending Re-evaluation ending: Please do not hesitate to contact me at [phone] by phone or if you have questions or concerns regarding this new plan of care! Sincerely, Kurtis Boggs, PT, Cert MDT, OCS
--- NOTE | 2024-08-21 11:26 | HP.PTREVAL ---
Re-Evaluation Intro: Dr. Rubina Chaidez, DO, It has been my pleasure to treat KRISH NAIR over the last 23 visits for RIGHT KNEE PAIN ,SPRAIN. Please see the progress note below for an update on the physical therapy plan of care! Subjective Subjective: Doing well .. able to walk in PT dept Patient had 2 epidural injections in back did not help ..PT does better Objective Objective/Function: * Patient will cont to benefit from skilled PT with patient making progress with strength and decrease pain and ambulating with transition to cane and goals adjusted with adding FGA goals with goals updat but patient continues to have weakness right leg * POSTURE: mild forward posture hips/flexed /trunk flexed GAIT: Ambulates with fww mild forward posture hip/knees flexed slow yonathan 150 ft with supervision /mod I EDEMA: 1+ pitted LLE lower leg ,RLE 2+ BALANCE: GOOD - no cane MMT: ( peak force) quads right 26.6 ,left 42.8 ,hamstrings right 27.1 ,left 34.1 ,right hip flexion 14.2 ,left 20.2 ,dorsiflexion 9.2 AROM: supine knee flexion right 0-115 ,left 0-120 Plan Plan Plan: PT INTERVENTIONS GAIT AND BALANCE TRAINING , BLE STRENGTHENING , ENDURANCE PROGRAM AND FUNCTIONAL STRENGTHENING Balance/Gait/Functional tests Balance/Special Test Scores CATSIB Score (Max score 120 seconds): 75 Lower Extremity Functional Score: 27 Goals Goals Goal 1:: Patient to be I with HEP strengthening Goal Time Frame: 4-6 Weeks Goal Progress: Progressing Goal 2:: Patient to improve peak force quads/hams/hip by 5-10 # to improve function and strength.( new goal) Goal Time Frame: 4-6 Weeks Goal Progress: Progressing Goal 3:: Patient to improve ability to walk with cane 300 ft MOD I ( NEW GOAL) Goal Time Frame: 6-8 Weeks Goal Progress: Progressing Goal 4:: Patient to improve CATSIBE by 5 points to improve balance and decrease risk of falls (new goal) Goal Time Frame: 4-6 Weeks Goal Progress: Progressing Goal 5:: Patient to improve LFES score by 5 points to improve QOL and function( new goal) Goal Time Frame: 4-6 Weeks Goal Progress: Progressing Goal 6:: Patient to improve functional gait assessment by 5 points to improve gait and balance Anticipated Interventions Anticipated Interventions Patient/Client Instruction: Educate patient on: Condition and Plan of Care For the Purpose of:: To decrease pain, To increase ROM, To improve muscle performance and motor function, To improve ability to perform ADL's, To increase tolerance to activity/condition/position, To improve ability of physical actions for home/community/work/leisure, To improve gait and locomotor functions, To increase flexibility/ROM, To improve endurance, To improve balance, To improve safety with gait and To improve tolerance to ADL's Therapeutic Exercise to Include: Strength training, Endurance training, Balance training, Flexibilty training, Gait and locomotor training and Active ROM For the Purpose of:: To increase ROM, To improve muscle performance and motor function, To improve ability to perform ADL's, To increase tolerance to activity/condition/position, To improve ability of physical actions for home/community/work/leisure, To improve gait and locomotor functions, To increase flexibility/ROM, To improve endurance, To improve balance, To improve safety with gait and To reduce risk of recurrence Re-Evaluation Ending Re-evaluation ending: Please do not hesitate to contact me at [phone] by phone or if you have questions or concerns regarding this new plan of care! Sincerely, Kurtis Boggs PT, Cert MDT, OCS
--- NOTE | 2024-09-30 10:32 | HP.PTEVAL_ITS ---
Patient's Visit Information Visit Information Visit Information: KRISH NAIR is a 79 year old M referred to Physical Therapy by Dr. Rubina Chaidez DO with a diagnosis of RIGHT KNEE PAIN ,SPRAIN. Date of Evaluation: 05/14/24 Physical Therapist: Kurtis Boggs, PT, Cert MDT, OCS Visit Plan Frequency: 2x /Week Duration: 4 Weeks Plan: PT INTERVENTIONS GAIT AND BALANCE TRAINING , BLE STRENGTHENING , ENDURANCE PROGRAM AND FUNCTIONAL STRENGTHENING Subjective Subjective: This 79 y/o male physical therapy presents to right knee pain .Patient developed sciatica pain 2 months ago fell landed on knee and leg. Patient was admitted to ER x-rays knee . Patient was getting C PT 04/22/24 working on steps and fell again this admitted to [facility] then transferred to Rehab . 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 Patient was d/c to home 05/11/24. Patient has drop foot. Patient plans to get jane management from sciatica pain.Patient has pain right lower leg and hip. Patient has limitations with walking and ADLS. Patient lives in 1 story home 2setps no rail. Walking on shower with shower chair. Patient is able to dress self needs help with shoes. Patient c/o paresthesia/tingling lower leg. Patient has limitations with ADLS and housework tasks . Patient has limitations with endurance. Patient condition affects QOL and function. Patient has multiple comorbities to influence condition. Patient goals to get stronger. SOCIAL: Pain Right Lower Extremity: Pain Intensity (Out of 10): 0 Pain Intensity Range: 10 Comment: 2-310 Objective Objective: POSTURE: mild forward posture hips/flexed /trunk flexed GAIT: Ambulates with fww mild forward posture hip/knees flexed slow yonathan 150 ft with supervision EDEMA: 1+ pitted BLE lower leg BALANCE: fair with fww MMT: ( peak force) quads right 0 ,left 16.1 ,hamstrings right 4.9 ,left 15.1 ,right hip flexion 0 ,left 12.2 AROM: supine knee flexion right 0-115 ,left 0-120 Balance/Special Test Scores Functional Gait Assessment Score: 17 % Disability: 43.3400 CATSIB Score (Max score 120 seconds): 80 Lower Extremity Functional Score: 43 Goals Goal 1:: Patient to be I with HEP strengthening Goal Time Frame: 4-6 Weeks Goal 2:: Patient to improve peak force quads/hams/hip by 5-10 # to improve function and strength.( new goal) Goal Time Frame: 4-6 Weeks Goal 3:: Patient to improve ability to walk with /without cane community distances ( NEW GOAL) Goal Time Frame: 6-8 Weeks Goal 4:: Patient to improve CATSIBE by 5 points to improve balance and decrease risk of falls (new goal) Goal Time Frame: 4-6 Weeks Goal 5:: Patient to improve LFES score by 5 points to improve QOL and function( new goal) Goal Time Frame: 4-6 Weeks Goal 6:: Patient to improve functional gait assessment by 5 points to improve gait and balance Rehabilitation Potential Physical Therapy Diagnosis: Patient has multiple comorbities to influence condition along with decrease gait ,balance ,weakness RLE causes deficits with ADLS and function thus benefit from skilled PT. Rehabilitation Potential: Good Anticipated Interventions Patient/Client Instruction: Educate patient on: Condition and Plan of Care For the Purpose of:: To decrease pain, To increase ROM, To improve muscle performance and motor function, To improve ability to perform ADL's, To increase tolerance to activity/condition/position, To improve ability of physical actions for home/community/work/leisure, To improve gait and locomotor functions, To increase flexibility/ROM, To improve endurance, To improve balance, To improve safety with gait and To improve tolerance to ADL's Therapeutic Exercise to Include: Strength training, Endurance training, Balance training, Flexibilty training, Gait and locomotor training and Active ROM For the Purpose of:: To increase ROM, To improve muscle performance and motor function, To improve ability to perform ADL's, To increase tolerance to activity/condition/position, To improve ability of physical actions for home/community/work/leisure, To improve gait and locomotor functions, To increase flexibility/ROM, To improve endurance, To improve balance, To improve safety with gait and To reduce risk of recurrence Text: Thank you for the opportunity to evaluate your patient. For Medicare and Medicare HMO plans, please review the plan of care and approve it. It will need to be FAXED BACK to us at [phone] for Medicare purposes. For Medicare only, by signing this I certify the plan of care. Please let me know if there are questions or concerns regarding this plan of care. Physician Signature: Date:
--- NOTE | 2024-10-30 10:29 | HP.PTREVAL ---
Re-Evaluation Intro: Dr. Rubina Chaidez, DO, It has been my pleasure to treat KRISH NAIR over the last 38 visits for RIGHT KNEE PAIN ,SPRAIN. Please see the progress note below for an update on the physical therapy plan of care! Subjective Subjective: Im very pleased in with progress . Im able car ,not using walker and slowly progressing not using cane Objective Objective/Function: Patient will cont to benefit from skilled PT with patient making progress with strength and decrease pain and ambulating with transition to cane community distances and goals adjusted with FGA goals with goals update but patient continues to have weakness right leg goal to be walking without cane in home* POSTURE: mild forward posture hips/flexed /trunk flexed GAIT: Ambulates with fww mild forward posture with cane 300 ft no cane in pouse EDEMA: 1+ pitted LLE lower leg ,RLE 2+ BALANCE: GOOD - no cane MMT: ( peak force) quads right 39.9 ,left 42.8 ,hamstrings right 28.1 ,left 34.1 ,right hip flexion 46.9 left 48.2 ,dorsiflexion 10.2 AROM: supine knee flexion right 0-117 ,left 0-122 Plan Plan Plan: PT INTERVENTIONS GAIT AND BALANCE TRAINING , BLE STRENGTHENING , ENDURANCE PROGRAM AND FUNCTIONAL STRENGTHENING Balance/Gait/Functional tests Balance/Special Test Scores Functional Gait Assessment Score: 19 % Disability: 36.6700 CATSIB Score (Max score 120 seconds): 85 Lower Extremity Functional Score: 43 Goals Goals Goal 1:: Patient to be I with HEP strengthening Goal Time Frame: 4-6 Weeks Goal Progress: Progressing Goal 2:: Patient to improve peak force quads/hams/hip by 5-10 # to improve function and strength.( new goal) Goal Time Frame: 4-6 Weeks Goal Progress: Progressing Goal 3:: Patient to improve ability to walk NO cane community distances ( NEW GOAL) Goal Time Frame: 6-8 Weeks Goal Progress: Progressing Goal 4:: Patient to improve CATSIBE by 5 points to improve balance and decrease risk of falls (new goal) Goal Time Frame: 4-6 Weeks Goal Progress: Progressing Goal 5:: Patient to improve LFES score by 5 points to improve QOL and function( new goal) Goal Time Frame: 4-6 Weeks Goal Progress: Progressing Goal 6:: Patient to improve functional gait assessment by 5 points to improve gait and balance Goal Progress: Progressing Anticipated Interventions Anticipated Interventions Patient/Client Instruction: Educate patient on: Condition and Plan of Care For the Purpose of:: To decrease pain, To increase ROM, To improve muscle performance and motor function, To improve ability to perform ADL's, To increase tolerance to activity/condition/position, To improve ability of physical actions for home/community/work/leisure, To improve gait and locomotor functions, To increase flexibility/ROM, To improve endurance, To improve balance, To improve safety with gait and To improve tolerance to ADL's Therapeutic Exercise to Include: Strength training, Endurance training, Balance training, Flexibilty training, Gait and locomotor training and Active ROM For the Purpose of:: To increase ROM, To improve muscle performance and motor function, To improve ability to perform ADL's, To increase tolerance to activity/condition/position, To improve ability of physical actions for home/community/work/leisure, To improve gait and locomotor functions, To increase flexibility/ROM, To improve endurance, To improve balance, To improve safety with gait and To reduce risk of recurrence Re-Evaluation Ending Re-evaluation ending: Please do not hesitate to contact me at [phone] by phone or if you have questions or concerns regarding this new plan of care! Sincerely, Kurtis Boggs PT, Cert MDT, OCS
== END 2024-10-30 19:00 | disposition home or self-care (01) ==
LOC: PT 09:30
PROVIDERS: Referring Provider Internal Medicine; Visit Provider Internal Medicine
DX: S83.91XD Sprain of unspecified site of right knee, subsequent encounter (principal)
CPT/HCPCS: 97110; 97162; 97530

== ENCOUNTER 2024-11-11 10:28 | Outpatient (RCR) | payer MEDICARE, BC, SELFPAY ==
[2024-10-25 03:52] VITALS: BMI 33.5
[2024-11-11 10:54] LABS: Prothrombin Time (Protime)PT. 22.7 SECONDS (11.7-14.9)
== END 2024-11-11 18:00 | disposition home or self-care (01) ==
LOC: LAB 10:28
PROVIDERS: Referring Provider Internal Medicine Cardiovascular Disease; Visit Provider Internal Medicine Cardiovascular Disease
DX: I48.11 Longstanding persistent atrial fibrillation (principal); Z79.01 Long term (current) use of anticoagulants
CPT/HCPCS: 36415; 85610

== ENCOUNTER 2024-12-09 10:14 | Outpatient (RCR) | payer MEDICARE, BC, SELFPAY ==
[2024-11-24 21:56] VITALS: BMI 33.5
[2024-12-09 11:40] LABS: International Normalized Ratio 2.1; Prothrombin Time (Protime)PT. 23.8 SECONDS (11.7-14.9)
== END 2024-12-24 18:00 | disposition home or self-care (01) ==
LOC: LAB 10:14
PROVIDERS: Referring Provider Internal Medicine Cardiovascular Disease; Visit Provider Internal Medicine Cardiovascular Disease
DX: I48.11 Longstanding persistent atrial fibrillation (principal); Z79.01 Long term (current) use of anticoagulants
CPT/HCPCS: 36415; 85610

== ENCOUNTER 2025-01-01 09:30 | Outpatient (RCR) | payer MEDICARE, BC, SELFPAY ==
--- NOTE | 2024-12-02 10:17 | HP.PTREVAL_ITS ---
Re-Evaluation Intro: Dr. Rubina Chaidez, DO, It has been my pleasure to treat KRISH NAIR over the last 47 visits for R knee Pian. Please see the progress note below for an update on the physical therapy plan of care! Subjective Subjective: Patient making progress with ambulating without cane Objective Objective/Function: Patient will cont to benefit from skilled PT with patient making progress with strength and decrease pain and ambulating with transition without community distances and goals are appropriate but patient continues to have weakness right dorsiflexion thus affects gait on uneven surfaces* POSTURE: mild forward posture hips/flexed /trunk flexed GAIT: Ambulates with fww mild forward posture with cane 300 ft no cane in pouse EDEMA: 1+ pitted LLE lower leg ,RLE 2+ BALANCE: GOOD - no cane MMT: ( peak force) quads right 38.9 ,left 43.8 ,hamstrings right 28.4 ,left 35.1 ,right hip flexion 45.9 left 47.2 ,dorsiflexion 10.1 AROM: supine knee flexion right 0-117 ,left 0-122 Plan Plan Plan: GOAL TO PROGRESS TO MACHINES TO INDEPENDENT LEVEL PT INTERVENTIONS GAIT PROGRESSING WITH/WITHOUT CANE AND BALANCE TRAINING , BLE STRENGTHENING , ENDURANCE PROGRAM AND FUNCTIONAL STRENGTHENING Goals Goals Goal 1:: Patient to improve peak force quads/hams/hip by 5-10 # to improve function and strength.( new goal) Goal Time Frame: 6-8 Weeks Goal Progress: Progressing Goal 2:: Patient to be I with HEP for strengthening and balance to improve gait Goal Time Frame: 6-8 Weeks Goal Progress: Progressing Goal 3:: Patient to improve ability to walk NO cane community distances ( NEW GOAL) Goal Time Frame: 6-8 Weeks Goal Progress: Progressing Goal 4:: Patient to improve CATSIBE by 5 points to improve balance and decrease risk of falls (new goal) Goal Time Frame: 6-8 Weeks Goal Progress: Progressing Goal 5:: Patient to improve LFES score by 5 points to improve QOL and function( new goal) Goal Time Frame: 6-8 Weeks Goal Progress: Progressing Goal 6:: Patient to improve functional gait assessment by 5 points to improve gait and balance Goal Time Frame: 6-8 Weeks Goal Progress: Progressing Anticipated Interventions Anticipated Interventions Patient/Client Instruction: Educate patient on: Condition and Plan of Care For the Purpose of:: To improve muscle performance and motor function, To improve ability to perform ADL's, To increase tolerance to activity/condition/position, To improve ability of physical actions for home/community/work/leisure, To improve gait and locomotor functions, To incr ease flexibility/ROM, To improve endurance, To improve balance, To improve health and function and To improve tolerance to ADL's Therapeutic Exercise to Include: Strength training, Endurance training, Coordination, Postural training, Flexibilty training and Gait and locomotor training Comment: BLE For the Purpose of:: To improve muscle performance and motor function, To increase tolerance to activity/condition/position, To improve ability of physical actions for home/community/work/leisure, To improve gait and locomotor functions, To improve endurance, To improve balance, To reduce risk of recurrence and To improve tolerance to ADL's Re-Evaluation Ending Re-evaluation ending: Please do not hesitate to contact me at [phone] by phone or if you have questions or concerns regarding this new plan of care! Sincerely, Kurtis Boggs, PT, Cert MDT, OCS
--- NOTE | 2025-01-01 10:24 | HP.PTDCSUM ---
Discharge Summary D/C summary: It has been my pleasure to treat KRISH NAIR referred by Dr. Rubina Chaidez DO, with the diagnosis of R knee Pian for a total of 55 visit(s). Discharge Date: 01/01/25 Please see the following information for a summary of their discharge status. Subjective Subjective: Doing better ,driving Mow grass Pain gets better with activity and ex's Can walk w/o cane Overall Improvement % Improvement: 80 Objective Objective/Function: mild forward posture hips/flexed /trunk flexed GAIT: Ambulates with fww mild forward posture with cane 300 ft occasionally uses cane EDEMA: 1+ pitted LLE lower leg ,RLE 2+ BALANCE: GOOD - no cane MMT: ( peak force) quads right 38.9 ,left 42.8 ,hamstrings right 28.4 ,left 37.1 ,right hip flexion 45.9 left 47.2 ,dorsiflexion 10.1 AROM: supine knee flexion right 0-117 ,left 0-122 Goals Goal 1:: Patient to improve peak force quads/hams/hip by 5-10 # to improve function and strength.( new goal) Goal Progress: Goal Met Goal 2:: Patient to be I with HEP for strengthening and balance to improve gait Goal Progress: Goal Met Goal 3:: Patient to improve ability to walk NO cane community distances ( NEW GOAL) Goal Progress: Progressing Goal 4:: Patient to improve CATSIBE by 5 points to improve balance and decrease risk of falls (new goal) Goal Progress: Goal Met Goal 5:: Patient to improve LFES score by 5 points to improve QOL and function( new goal) Goal Progress: Goal Met Goal 6:: Patient to improve functional gait assessment by 5 points to improve gait and balance Goal Progress: Goal Met Plan Plan: D/C TO HEP and gym D/C Information Discharge Comments: hep and gym program d/c sentence: If there are questions or concerns regarding this patient's physical therapy, please feel free to call me at [phone]. Thank you for the referral of this patient. Sincerely, Kurtis Boggs, PT, Cert MDT, OCS Balance/Gait/Functional tests Balance/Special Test Scores Lower Extremity Functional Score: 53 Improvement % Improvement: 80
== END 2025-01-01 10:47 | disposition home or self-care (01) ==
LOC: PT 09:30
PROVIDERS: Referring Provider Internal Medicine; Visit Provider Internal Medicine
DX: S83.91XD Sprain of unspecified site of right knee, subsequent encounter (principal)
CPT/HCPCS: 97110; 97530

== ENCOUNTER 2025-01-06 09:40 | Outpatient (RCR) | payer MEDICARE, BC, SELFPAY ==
[2024-12-24 20:43] VITALS: BMI 33.5
[2025-01-06 10:51] LABS: International Normalized Ratio 2.2; Prothrombin Time (Protime)PT. 25.1 SECONDS (11.7-14.9)
== END 2025-01-24 18:00 | disposition home or self-care (01) ==
LOC: LAB 09:40
PROVIDERS: Referring Provider Internal Medicine Cardiovascular Disease; Visit Provider Internal Medicine Cardiovascular Disease
DX: I48.11 Longstanding persistent atrial fibrillation (principal); Z79.01 Long term (current) use of anticoagulants
CPT/HCPCS: 36415; 85610

== ENCOUNTER 2025-02-19 09:35 | Outpatient (RCR) | payer MEDICARE, BC, SELFPAY ==
[2025-01-24 20:46] VITALS: BMI 33.5
[2025-02-19 11:24] LABS: International Normalized Ratio 2.5; Prothrombin Time (Protime)PT. 27.2 SECONDS (11.7-14.9)
== END 2025-02-19 18:00 | disposition home or self-care (01) ==
LOC: LAB 09:35
PROVIDERS: Referring Provider Internal Medicine Cardiovascular Disease; Visit Provider Internal Medicine Cardiovascular Disease
DX: I48.11 Longstanding persistent atrial fibrillation (principal); Z79.01 Long term (current) use of anticoagulants
CPT/HCPCS: 36415; 85610

== ENCOUNTER 2025-03-23 08:30 | Outpatient (RCR) | payer MEDICARE, BC, SELFPAY ==
[2025-03-23 09:26] LABS: Prothrombin Time (Protime)PT. 22.3 SECONDS (11.7-14.9)
[2025-03-23 09:43] LABS: AST(SGOT) 19 U/L (<=37); Alanine Aminotransfer ALT/SGPT 14 U/L (<=46); Albumin, Serum 4.1 g/dL (3.4-4.8); Alkaline Phosphatase 59 U/L (40-129); Bilirubin, Direct 0.37 mg/dL (0.00-0.30); Cholesterol 179 mg/dL (<=200); Globulin 3.2 g/dL (2.2-4.2); Low Density Lipoprotein Calc. 92 mg/dL; Triglycerides 132 mg/dL; Very Low Density Lipoprotein 26 mg/dL (5-40); cholesterol:hdl ratio screen 2.93
== END 2025-03-26 21:00 | disposition home or self-care (01) ==
LOC: LAB 08:30
PROVIDERS: Nurse Practitioner Family; Referring Provider Internal Medicine Cardiovascular Disease; Visit Provider Internal Medicine Cardiovascular Disease
DX: I48.11 Longstanding persistent atrial fibrillation (principal); Z79.01 Long term (current) use of anticoagulants; E78.00 Pure hypercholesterolemia, unspecified; I10 Essential (primary) hypertension
CPT/HCPCS: 36415; 80061; 80076; 85610

== ENCOUNTER 2025-05-25 09:08 | Outpatient (RCR) | payer MEDICARE, BC, SELFPAY ==
[2025-04-28 10:57] LABS: Prothrombin Time (Protime)PT. 21.7 SECONDS (11.7-14.9)
[2025-05-05 09:29] LABS: Prothrombin Time (Protime)PT. 21.4 SECONDS (11.7-14.9)
[2025-05-12 10:40] LABS: Prothrombin Time (Protime)PT. 24.8 SECONDS (11.7-14.9)
[2025-05-25 10:06] LABS: Prothrombin Time (Protime)PT. 25.5 SECONDS (11.7-14.9)
== END 2025-05-26 18:00 | disposition home or self-care (01) ==
LOC: LAB 09:08
PROVIDERS: Referring Provider Internal Medicine Cardiovascular Disease; Visit Provider Internal Medicine Cardiovascular Disease
DX: I48.11 Longstanding persistent atrial fibrillation (principal); Z79.01 Long term (current) use of anticoagulants
CPT/HCPCS: 36415; 85610

== ENCOUNTER 2025-06-26 09:31 | Outpatient (RCR) | payer MEDICARE, BC, SELFPAY ==
[2025-06-26 10:31] LABS: Prothrombin Time (Protime)PT. 33.7 SECONDS (11.7-14.9)
== END 2025-06-26 18:00 | disposition home or self-care (01) ==
LOC: LAB 09:31
PROVIDERS: Referring Provider Internal Medicine Cardiovascular Disease; Visit Provider Internal Medicine Cardiovascular Disease
DX: I48.11 Longstanding persistent atrial fibrillation (principal); Z79.01 Long term (current) use of anticoagulants
CPT/HCPCS: 36415; 85610

== ENCOUNTER 2025-07-09 08:50 | Outpatient (RCR) | payer MEDICARE, BC, SELFPAY ==
[2025-07-09 10:14] LABS: Prothrombin Time (Protime)PT. 27.2 SECONDS (11.7-14.9)
== END 2025-07-25 18:00 | disposition home or self-care (01) ==
LOC: LAB 08:50
PROVIDERS: Referring Provider Internal Medicine Cardiovascular Disease; Visit Provider Internal Medicine Cardiovascular Disease
DX: I48.11 Longstanding persistent atrial fibrillation (principal); Z79.01 Long term (current) use of anticoagulants
CPT/HCPCS: 36415; 85610

== ENCOUNTER 2025-08-11 09:48 | Outpatient (RCR) | payer MEDICARE, BC, SELFPAY ==
[2025-08-11 10:44] LABS: Hematocrit 49.9 % (40-54); Hemoglobin 16.9 g/dL (13.0-16.5); Mean Corp Hgb Conc 33.9 g/dL (32-36); Mean Corpuscular Volume 89.3 fL (80-94); Mean Platelet Vol. 9.8 fl (6.2-12.0); Platelet Count 271 K/mm3 (150-450); RBC Distribution Width CV 14.0 % (11.6-14.6); RBC Distribution Width SD 46.1 fl (35.1-43.9); Red Blood Count 5.59 M/mm3 (4.6-6.2); White Blood Count 6.7 K/mm3 (4.4-11.0)
[2025-08-11 10:54] LABS: Prothrombin Time (Protime)PT. 28.7 SECONDS (11.7-14.9)
[2025-08-11 11:27] LABS: AST(SGOT) 17 U/L (<=37); Alanine Aminotransfer ALT/SGPT 10 U/L (<=46); Albumin, Serum 4.2 g/dL (3.4-4.8); Alkaline Phosphatase 55 U/L (40-129); Anion Gap 10 (5-15); BUN 17 mg/dL (4-19); BUN/Creat Ratio 17.5 RATIO (10-20); Calcium,Total 9.1 mg/dL (7.6-11.0); Carbon Dioxide 27.7 mmol/L (21.0-32.0); Chloride 102 mmol/L (98-108); Cholesterol 178 mg/dL (<=200); Globulin 3.3 g/dL (2.2-4.2); Glucose 116 mg/dL (70-99); Low Density Lipoprotein Calc. 100 mg/dL; PSA,Total - Annual Screen 1.27 ng/mL (0.02-4.00); Potassium 4.0 mmol/L (3.3-5.1); Triglycerides 151 mg/dL; Very Low Density Lipoprotein 30 mg/dL (5-40); cholesterol:hdl ratio screen 3.44
== END 2025-08-11 18:00 | disposition home or self-care (01) ==
LOC: LAB 09:48
PROVIDERS: Referring Provider Internal Medicine Cardiovascular Disease; Visit Provider Internal Medicine Cardiovascular Disease
DX: I48.11 Longstanding persistent atrial fibrillation (principal); Z79.01 Long term (current) use of anticoagulants; R73.9 Hyperglycemia, unspecified; I10 Essential (primary) hypertension; E78.2 Mixed hyperlipidemia; K21.9 Gastro-esophageal reflux disease without esophagitis; D50.9 Iron deficiency anemia, unspecified; Z12.5 Encounter for screening for malignant neoplasm of prostate
CPT/HCPCS: 36415; 80053; 80061; 83036; 84153; 84443; 85027; 85610; G0103